=== PATIENT | female | born 1975 | race Caucasian/White ===

== ENCOUNTER 2020-07-27 11:01 | Outpatient (REF) | payer OTHER, SELFPAY ==
--- NOTE | ~2020-07-27 | MM_ITS ---
EXAMINATION: MM DIAGNOSTIC DIGITAL BREAST TOMOSYNTHESIS, BILATERAL US DIAGNOSTIC ULTRASOUND BREAST, RIGHT CLINICAL INFORMATION: Palpable mass right breast anterior upper outer quadrant. Age 44. Due for yearly. Family history breast cancer, paternal aunt. The lifetime risk of breast cancer based on the Tyrer-Cuzick Model is 11%. COMPARISON: Outside imaging from [facility]: Right mammography 02/11/2016, bilateral mammography 02/03/2016, targeted right breast ultrasound 02/11/2016. TECHNIQUE: Digital breast tomosynthesis is performed in both the craniocaudal and mediolateral oblique views along with computer-aided detection (CAD). Synthesized 2D images are generated from the tomosynthesis. Additional views are obtained: Magnification right MLO, exaggerated left CC. Ultrasound right breast is targeted to the area of clinical concern upper outer quadrant. Patient is able to point to area of concern at time of imaging. Grayscale imaging and color Doppler are performed without and with harmonics. FINDINGS: The breasts are heterogeneously dense, which may obscure small masses (ACR BI-RADS breast composition Category c). The palpable mass right breast corresponds to a smooth mass at least 2 cm in size with obscured margins anterior upper outer breast. This is present on previous outside mammography, with interval enlargement. Neither breast shows interval new dominant mass or architectural abnormality or abnormal calcifications. The axilla and skin contours are unremarkable. Ultrasound right breast demonstrates a simple cyst 10:00 position 4 cm from nipple measuring 2.6 x 1.6 x 2.2 cm. There is some reverberation artifact near side which clears on harmonics. A few floating punctate echogenic foci are seen consistent with protein content and/or cholesterol crystals. There is strong increased through-transmission of sound and no internal septation or solid component or color flow. Prior measurements are 1.4 x 0.7 cm on outside ultrasound 2016. There is no solid mass or architectural abnormality. Results are discussed with the patient at time of visit. MM/MM tomosynthesis diagnostic BI IMPRESSION: 1. No mammographic evidence of malignancy. 2. Palpable lesion right breast corresponds to an incidental cyst measuring 2.6 x 1.6 x 2.2 cm. Similar finding noted on prior outside ultrasound 2016, prior measurement 1.4 x 0.7 cm. ASSESSMENT: BI-RADS 2: Benign RECOMMENDATION: Routine annual mammography screening. This patient's information was entered into a reminder system with a target due date for their next mammogram.
== END 2020-07-27 11:02 | disposition home or self-care (01) ==
LOC: HO.MAMMO 11:01
PROVIDERS: PCP Internal Medicine; Visit Provider Internal Medicine
DX: N63.11 Unspecified lump in the right breast, upper outer quadrant (principal)
CPT/HCPCS: 76642; 77062; 77066

== ENCOUNTER 2021-11-04 08:02 | Outpatient (REF) | payer OTHER, SELFPAY ==
[2021-11-04 09:33] LABS: MANUAL DIFF FLAG NO
[2021-11-04 09:53] LABS: Basophils Absolute Auto 0.1 X10*3/uL (0.0-0.2); Basophils Percent Auto 0.7 % (0-2); Eosinophils Absolute Auto 0.1 X10*3/uL (0.0-0.4); Eosinophils Percent Auto 1.8 % (0-4); Hematocrit 41.5 % (37.0-47.0); Hemoglobin 13.8 g/dl (12.0-16.0); Imm Gran Abs Auto 0.02 X10*3/uL (0.00-0.03); Imm Gran Pct Auto 0.3 % (0.0-0.4); Lymphocytes Absolute Auto 1.8 X10*3/uL (1.2-4.9); Lymphocytes Percent Auto 23.8 % (20-40); Mean Corpuscular HGB Conc 33.3 g/dl (31.0-35.0); Mean Corpuscular Hemoglobin 33.3 pg (27.0-33.0); Mean Platelet Volume 9.3 fL (9.4-12.3); Monocytes Absolute Auto 0.4 X10*3/uL (0.1-1.2); Neutrophils Percent Auto 67.4 % (45-73); Platelet Count 232 X10*3/uL (160-400); Red Blood Count 4.15 X10*6/uL (4.20-5.50); Red Cell Distribution Width 13.9 % (11.0-16.0); White Blood Count 7.4 X10*3/uL (4.8-10.8)
[2021-11-04 10:24] LABS: C Reactive Protein 0.11 mg/dL (< or = 0.50); Rheumatoid Factor < 15.0 IU/mL (<15.0)
[2021-11-06 05:02] LABS: Lyme Abs Screen <0.90 index
[2021-11-08 12:56] LABS: ANA Titer 2 1:40 titer; Anti Nuclear Antibody Pattern Nuclear, Nucleolar; Anti Nuclear Antibody Screen POSITIVE (NEGATIVE)
[2021-11-09 18:12] LABS: Cyclic Citrullinated Peptide <16 UNITS
== END 2021-11-04 08:03 | disposition home or self-care (01) ==
LOC: HO.LAB 08:02
PROVIDERS: PCP Internal Medicine; Visit Provider Internal Medicine Rheumatology
DX: M25.541 Pain in joints of right hand (principal); M25.542 Pain in joints of left hand; M79.602 Pain in left arm; G56.22 Lesion of ulnar nerve, left upper limb; M47.812 Spondylosis without myelopathy or radiculopathy, cervical region; M79.7 Fibromyalgia
CPT/HCPCS: 36415; 85025; 86038; 86039; 86140; 86200; 86431; 86617; 86618; 99202

== ENCOUNTER 2021-11-11 10:57 | Outpatient (REF) | payer OTHER, SELFPAY ==
--- NOTE | ~2021-11-11 | XR_ITS ---
EXAMINATION: BILATERAL HAND, BILATERAL KNEE, BILATERAL HIP. CLINICAL INFORMATION: Pain. COMPARISON: None TECHNIQUE: 2 views of each hip. 2 views of each knee and 3 views of each hand. FINDINGS: Bilateral knee: There is maintained tricompartment joint space without bony erosive changes, loose body or spurring. No joint effusion seen. Bilateral hips: The hip joint space is maintained normal. There is no bony erosive changes, fracture or dislocation. The soft tissues are normal. Incidental note is made of an IUD in the pelvis. Bilateral hand: The PIP, DIP and MCP joint spaces are maintained normal. No bony erosive changes or periarticular spurring. No soft tissue swelling or loose bodies. XR/XR hand RT 2V IMPRESSION: Unremarkable bilateral knee exam. Unremarkable bilateral hip exam. Unremarkable bilateral hand exam.
--- NOTE | ~2021-11-11 | XR_ITS ---
EXAMINATION: BILATERAL HAND, BILATERAL KNEE, BILATERAL HIP. CLINICAL INFORMATION: Pain. COMPARISON: None TECHNIQUE: 2 views of each hip. 2 views of each knee and 3 views of each hand. FINDINGS: Bilateral knee: There is maintained tricompartment joint space without bony erosive changes, loose body or spurring. No joint effusion seen. Bilateral hips: The hip joint space is maintained normal. There is no bony erosive changes, fracture or dislocation. The soft tissues are normal. Incidental note is made of an IUD in the pelvis. Bilateral hand: The PIP, DIP and MCP joint spaces are maintained normal. No bony erosive changes or periarticular spurring. No soft tissue swelling or loose bodies. XR/XR knee LT 2V IMPRESSION: Unremarkable bilateral knee exam. Unremarkable bilateral hip exam. Unremarkable bilateral hand exam.
--- NOTE | ~2021-11-11 | XR_ITS ---
EXAMINATION: BILATERAL HAND, BILATERAL KNEE, BILATERAL HIP. CLINICAL INFORMATION: Pain. COMPARISON: None TECHNIQUE: 2 views of each hip. 2 views of each knee and 3 views of each hand. FINDINGS: Bilateral knee: There is maintained tricompartment joint space without bony erosive changes, loose body or spurring. No joint effusion seen. Bilateral hips: The hip joint space is maintained normal. There is no bony erosive changes, fracture or dislocation. The soft tissues are normal. Incidental note is made of an IUD in the pelvis. Bilateral hand: The PIP, DIP and MCP joint spaces are maintained normal. No bony erosive changes or periarticular spurring. No soft tissue swelling or loose bodies. XR/XR knee RT 2V IMPRESSION: Unremarkable bilateral knee exam. Unremarkable bilateral hip exam. Unremarkable bilateral hand exam.
--- NOTE | ~2021-11-11 | XR_ITS ---
EXAMINATION: BILATERAL HAND, BILATERAL KNEE, BILATERAL HIP. CLINICAL INFORMATION: Pain. COMPARISON: None TECHNIQUE: 2 views of each hip. 2 views of each knee and 3 views of each hand. FINDINGS: Bilateral knee: There is maintained tricompartment joint space without bony erosive changes, loose body or spurring. No joint effusion seen. Bilateral hips: The hip joint space is maintained normal. There is no bony erosive changes, fracture or dislocation. The soft tissues are normal. Incidental note is made of an IUD in the pelvis. Bilateral hand: The PIP, DIP and MCP joint spaces are maintained normal. No bony erosive changes or periarticular spurring. No soft tissue swelling or loose bodies. XR/XR hip RT min 2V IMPRESSION: Unremarkable bilateral knee exam. Unremarkable bilateral hip exam. Unremarkable bilateral hand exam.
--- NOTE | ~2021-11-11 | XR_ITS ---
EXAMINATION: BILATERAL HAND, BILATERAL KNEE, BILATERAL HIP. CLINICAL INFORMATION: Pain. COMPARISON: None TECHNIQUE: 2 views of each hip. 2 views of each knee and 3 views of each hand. FINDINGS: Bilateral knee: There is maintained tricompartment joint space without bony erosive changes, loose body or spurring. No joint effusion seen. Bilateral hips: The hip joint space is maintained normal. There is no bony erosive changes, fracture or dislocation. The soft tissues are normal. Incidental note is made of an IUD in the pelvis. Bilateral hand: The PIP, DIP and MCP joint spaces are maintained normal. No bony erosive changes or periarticular spurring. No soft tissue swelling or loose bodies. XR/XR hand LT 2V IMPRESSION: Unremarkable bilateral knee exam. Unremarkable bilateral hip exam. Unremarkable bilateral hand exam.
--- NOTE | ~2021-11-11 | XR_ITS ---
EXAMINATION: BILATERAL HAND, BILATERAL KNEE, BILATERAL HIP. CLINICAL INFORMATION: Pain. COMPARISON: None TECHNIQUE: 2 views of each hip. 2 views of each knee and 3 views of each hand. FINDINGS: Bilateral knee: There is maintained tricompartment joint space without bony erosive changes, loose body or spurring. No joint effusion seen. Bilateral hips: The hip joint space is maintained normal. There is no bony erosive changes, fracture or dislocation. The soft tissues are normal. Incidental note is made of an IUD in the pelvis. Bilateral hand: The PIP, DIP and MCP joint spaces are maintained normal. No bony erosive changes or periarticular spurring. No soft tissue swelling or loose bodies. XR/XR hip LT min 2V IMPRESSION: Unremarkable bilateral knee exam. Unremarkable bilateral hip exam. Unremarkable bilateral hand exam.
[2021-11-12 18:05] LABS: Anti DNA DS Antibody 1 IU/mL; SM/Ribonucleoprotein Ab <1.0 NEG AI (<1.0 NEG); Smith Protein <1.0 NEG AI (<1.0 NEG)
== END 2021-11-11 10:58 | disposition home or self-care (01) ==
LOC: HO.LAB 10:57
PROVIDERS: Absent Provider Internal Medicine Rheumatology; PCP Internal Medicine; Visit Provider Internal Medicine
DX: R76.8 Other specified abnormal immunological findings in serum (principal); M25.551 Pain in right hip; M25.552 Pain in left hip; M25.561 Pain in right knee; M25.562 Pain in left knee; M79.641 Pain in right hand; M79.642 Pain in left hand
CPT/HCPCS: 36415; 73120; 73502; 73560; 86225; 86235

== ENCOUNTER 2022-04-25 11:02 | Outpatient (REF) | payer OTHER, SELFPAY ==
--- NOTE | ~2022-04-25 | MM_ITS ---
EXAMINATION: MM SCREENING DIGITAL BREAST TOMOSYNTHESIS, BILATERAL CLINICAL INFORMATION: Screening. Asymptomatic. COMPARISON: Mammography: 07/27/2020; outside mammography 02/11/2016 and 02/03/2016 ([facility]); ultrasound right breast 07/27/2020. TECHNIQUE: Digital breast tomosynthesis is performed in both the craniocaudal and mediolateral oblique views along with computer-aided detection (CAD). Synthesized 2D images are generated from the tomosynthesis. FINDINGS: The breasts are heterogeneously dense, which may obscure small masses (ACR BI-RADS breast composition Category c). There are no significant masses, abnormal calcifications, or other abnormalities. The known cyst anterior 9:00 right breast is decreased in size since prior exam. No architectural abnormality. The axilla and skin contours are unremarkable. MM/MM tomosynthesis screening BI IMPRESSION: No mammographic evidence of malignancy. ASSESSMENT: BI-RADS 2: Benign RECOMMENDATION: Routine annual mammography screening. This patient's information was entered into a reminder system with a target due date for their next mammogram.
== END 2022-04-25 11:03 | disposition home or self-care (01) ==
LOC: HO.MAMMO 11:02
PROVIDERS: Visit Provider Internal Medicine
DX: Z12.31 Encounter for screening mammogram for malignant neoplasm of breast (principal)
CPT/HCPCS: 77063; 77067

== ENCOUNTER 2022-05-16 12:32 | Outpatient (REF) | payer OTHER, SELFPAY ==
--- NOTE | ~2022-05-16 | XR_ITS ---
EXAMINATION: XR CHEST CLINICAL INFORMATION: Chest pain COMPARISON: None TECHNIQUE: 2 views of the chest were obtained. FINDINGS: Cardiac silhouette is normal in size. The lungs are well aerated. There is no lobar consolidation. No pleural effusion or pneumothorax. Mild degenerative changes of the spine. XR/XR chest 2V IMPRESSION: No acute pulmonary pathology.
== END 2022-05-16 12:33 | disposition home or self-care (01) ==
LOC: HO.XRAY 12:32
PROVIDERS: Visit Provider Internal Medicine
DX: R07.9 Chest pain, unspecified (principal)
CPT/HCPCS: 71046

== ENCOUNTER 2022-07-20 14:17 | Outpatient (REF) | payer OTHER, SELFPAY ==
--- NOTE | ~2022-07-20 | XR_ITS ---
EXAMINATION: XR hand wrist RT, XR hand wrist LT CLINICAL INFORMATION: Reason for Exam M79.643 - Pain in unspecified hand COMPARISON: Hand radiographs 11/11/2021 TECHNIQUE: 4 views of the hand and wrist FINDINGS: No acute fracture or dislocation. Joint spaces are maintained without significant degenerative change. No soft tissue abnormality. XR/XR hand wrist LT IMPRESSION: No acute osseous abnormality.
--- NOTE | ~2022-07-20 | XR_ITS ---
EXAMINATION: XR ELBOW, RIGHT CLINICAL INFORMATION: Pain COMPARISON: None TECHNIQUE: Three views of the right elbow. FINDINGS: No acute fracture or dislocation. Joint spaces are maintained. Soft tissues are unremarkable. No joint effusion. XR/XR elbow RT 2V IMPRESSION: No acute osseous abnormality.
--- NOTE | ~2022-07-20 | XR_ITS ---
EXAMINATION: XR ELBOW, LEFT CLINICAL INFORMATION: Pain COMPARISON: None TECHNIQUE: Three views of the left elbow. FINDINGS: No acute fracture or dislocation. Joint spaces are maintained. Soft tissues are unremarkable. No joint effusion. XR/XR elbow LT 2V IMPRESSION: No acute osseous abnormality.
--- NOTE | ~2022-07-20 | XR_ITS ---
EXAMINATION: XR hand wrist RT, XR hand wrist LT CLINICAL INFORMATION: Reason for Exam M79.643 - Pain in unspecified hand COMPARISON: Hand radiographs 11/11/2021 TECHNIQUE: 4 views of the hand and wrist FINDINGS: No acute fracture or dislocation. Joint spaces are maintained without significant degenerative change. No soft tissue abnormality. XR/XR hand wrist RT IMPRESSION: No acute osseous abnormality.
== END 2022-07-20 14:18 | disposition home or self-care (01) ==
LOC: HO.XRAY 14:17
PROVIDERS: PCP Internal Medicine; Visit Provider Internal Medicine
DX: M79.641 Pain in right hand (principal); M79.642 Pain in left hand; M25.531 Pain in right wrist; M25.532 Pain in left wrist; M25.521 Pain in right elbow; M25.522 Pain in left elbow
CPT/HCPCS: 73070; 73110; 73130

== ENCOUNTER 2022-09-29 08:25 | Outpatient (REF) | payer OTHER, SELFPAY ==
--- NOTE | ~2022-09-29 | MR_ITS ---
EXAMINATION: MR CERVICAL SPINE WITHOUT CONTRAST CLINICAL INFORMATION: Cervical disc disease/radiculopathy. COMPARISON: None available. TECHNIQUE: MRI of the cervical spine was performed using routine sequences without contrast. FINDINGS: The cervical vertebral bodies maintain normal heights and alignment. There is moderate disc height loss at C5-C6 and C6-C7. Endplate edema is seen at C6-C7, asymmetrically on the right side. The cord signal appears normal. The imaged intracranial contents and extraspinal soft tissues appear normal. SPINAL LEVELS: C2-C3: No posterior disc abnormality. No spinal canal or neural foraminal stenosis. C3-C4: Small central protrusion. No spinal canal or neural foraminal stenosis. C4-C5: Small central protrusion with osteophytic ridging resulting in mild spinal canal stenosis with mild indentation on the ventral cord. No neural foraminal stenosis. C5-C6: Broad-based disc osteophyte complex resulting in mild to moderate spinal canal stenosis with ventral cord flattening. Right more than left uncovertebral hypertrophy results in severe right and mild left neural foraminal stenosis. C6-C7: Disc osteophyte complex with uncovertebral hypertrophy results in moderate spinal canal stenosis and severe bilateral neural foraminal stenosis. C7-T1: No posterior disc abnormality. No spinal canal or neural foraminal stenosis. MR/MR cervical spine wo con IMPRESSION: Multilevel degenerative spondylotic changes. At C6-C7 there is moderate spinal canal stenosis and severe bilateral neural foraminal stenosis. At C5-C6 there is mild to moderate spinal canal stenosis and severe right neural foraminal stenosis.
== END 2022-09-29 08:26 | disposition home or self-care (01) ==
LOC: HO.MRI 08:25
PROVIDERS: PCP Internal Medicine; Visit Provider Psychiatry & Neurology Neurology
DX: M50.90 Cervical disc disorder, unspecified, unspecified cervical region (principal); M54.12 Radiculopathy, cervical region
CPT/HCPCS: 72141

== ENCOUNTER 2022-09-29 09:05 | Outpatient (REF) | payer OTHER, SELFPAY ==
[2022-09-29 09:22] LABS: MANUAL DIFF FLAG NO
[2022-09-29 09:26] LABS: Basophils Absolute Auto 0.1 X10*3/uL (0.0-0.2); Basophils Percent Auto 0.6 % (0-2); Eosinophils Absolute Auto 0.3 X10*3/uL (0.0-0.4); Eosinophils Percent Auto 2.8 % (0-4); Hematocrit 41.4 % (37.0-47.0); Hemoglobin 14.3 g/dl (12.0-16.0); Imm Gran Abs Auto 0.03 X10*3/uL (0.00-0.03); Imm Gran Pct Auto 0.3 % (0.0-0.4); Lymphocytes Absolute Auto 2.4 X10*3/uL (1.2-4.9); Lymphocytes Percent Auto 25.4 % (20-40); Mean Corpuscular HGB Conc 34.5 g/dl (31.0-35.0); Mean Corpuscular Hemoglobin 33.8 pg (27.0-33.0); Mean Corpuscular Volume 97.9 fL (80.0-98.0); Mean Platelet Volume 9.2 fL (9.4-12.3); Monocytes Absolute Auto 0.6 X10*3/uL (0.1-1.2); Monocytes Percent Auto 6.4 % (2-11); Neutrophils Absolute Auto 6.1 x10*3/uL (2.0-8.3); Neutrophils Percent Auto 64.5 % (45-73); Platelet Count 221 X10*3/uL (160-400); Red Blood Count 4.23 X10*6/uL (4.20-5.50); Red Cell Distribution Width 12.8 % (11.0-16.0); White Blood Count 9.5 X10*3/uL (4.8-10.8)
[2022-09-29 10:07] LABS: Alanine Aminotransferase 10 U/L (0-31); Albumin Level 4.3 g/dL (3.5-5.0); Alkaline Phosphatase 71 U/L (39-117); Anion Gap 11 (12-20); Aspartate Amino Transferase 13 U/L (5-31); Bilirubin Total 0.6 mg/dL (0.0-1.0); Blood Urea Nitrogen 9 mg/dL (9-16); Calcium 9.1 mg/dL (8.4-10.2); Carbon Dioxide 27 mmol/L (22-29); Chloride 107 mmol/L (96-108); Cholesterol 218 mg/dL; Estimated Glomerular Filt Rate > 60; Glucose Fasting 92 mg/dL (60-99); HDL Cholesterol 40 mg/dL; LDL Cholesterol Calculated 158 mg/dl; Potassium 4.3 mmol/L (3.3-5.1); Sodium 141 mmol/L (135-145); Total Protein 6.5 g/dL (6.5-8.0); Triglycerides 103 mg/dL
[2022-09-29 10:11] LABS: Thyroid Stimulating Hormone 0.46 uIU/mL (0.32-4.0)
== END 2022-09-29 09:06 | disposition home or self-care (01) ==
LOC: HO.LAB 09:05
PROVIDERS: PCP Internal Medicine; Visit Provider Internal Medicine
DX: N28.9 Disorder of kidney and ureter, unspecified (principal); D64.9 Anemia, unspecified; E78.5 Hyperlipidemia, unspecified; E03.9 Hypothyroidism, unspecified
CPT/HCPCS: 36415; 80053; 80061; 84443; 85025

== ENCOUNTER 2022-10-11 12:27 | Outpatient (REF) | payer OTHER, SELFPAY | END 2022-10-11 12:28 | disposition home or self-care (01) | LOC: HO.XRAY 12:27 | PROVIDERS: PCP Internal Medicine; Visit Provider Internal Medicine | DX: Z13.89 Encounter for screening for other disorder (principal) ==

== ENCOUNTER 2022-12-22 11:23 | Outpatient (REF) | payer OTHER, SELFPAY | END 2022-12-22 11:24 | disposition home or self-care (01) | LOC: HO.LAB 11:23 | PROVIDERS: PCP Internal Medicine; Visit Provider Internal Medicine | DX: R39.9 Unspecified symptoms and signs involving the genitourinary system (principal) | CPT/HCPCS: 81001; 87086; 87088; 87186 ==

== ENCOUNTER 2023-03-30 14:14 | Outpatient (AMB) | payer OTHER, SELFPAY ==
[2023-03-30 14:15] VITALS: BP 122/66; PULSE 80; O2SAT 98; BMI 25.1
--- NOTE | 2023-03-30 14:15 | MHC.PC.OV ---
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 Accompanied by: Self / Same As Patient Allergies No Known Allergies Allergy (Verified 03/30/23 14:54) Medication List - Last Reconciled 03/30/23 by Stone Muse MD albuterol sulfate 90 mcg/actuation (ProAir HFA) 2 puffs inhalation Q4-6H PRN citalopram (Celexa) 20 mg PO DAILY lorazepam 1 mg PO DAILY PRN lorazepam 1 mg (2 x 0.5 mg) PO BID PRN sulfamethoxazole-trimethoprim 800-160 mg (Bactrim DS) 1 tab PO BID Tobacco use date assessed: 10/17/22 Dental Screening Dental Screen Date: 03/30/23 Did you have a dental visit in the last 12 months?: Yes Did you have a dental problem in the last 6 months where you did not have access to dental care?: No Was dental information given to patient?: Patient has dentist HPI fell left ankle and knee pain/ surgery 6 weeks ago HPI Details 47-year-old female presents to the office for a sick visit. She tripped and fell on her outstretched hands last night. In the process she has hurt her left foot. She is also worried about her left arm. She recently had surgery in the arm and has had surgery in the neck in the recent past. No visible bruising. She could get up on her own. [facility] Medical History KRISTEN positive Fibromyalgia Cervical osteoarthritis Ulnar neuropathy at elbow of left upper extremity Pain in left arm Surgical History History of section Social History Housing: Apartment Alcohol intake: never Patient Tobacco Use Status: Current everyday Tobacco user Tobacco use type: Cigarette Cigarette Packs Per Day: 0.5 Cigarettes Per Day: 8 e-Cigarette/Vaping Use: Never Used Second Hand Smoke Exposure: Yes service: No Current occupational status: unemployed Cognitive needs: No Hearing needs: No Vision needs: Yes (glasses) Questionnaire PHQ-9 Over the last 2 weeks, how often have you been bothered by any of the following problems? 1. Little interest or pleasure in doing things: not at all 2. Feeling down, depressed, or hopeless: not at all 3. Trouble falling or staying asleep, or sleeping too much: not at all 4. Feeling tired or having little energy: not at all 5. Poor appetite or overeating: not at all 6. Feeling bad about yourself - or that you are a failure or have let yourself or your family down: not at all 7. Trouble concentrating on things, such as reading the newspaper or watching television: not at all 8. Moving or speaking so slowly that other people could have noticed. Or the opposite - being so fidgety or restless that you have been moving around a lot more than usual: not at all 9. Thoughts that you would be better off or of hurting yourself in some way: not at all Total score: 0 Depression Screening Interpretation: Negative Depression Screening Done: Yes Source: Developed by Drs. Víctor Stewart, Yanira Diaz, Ilir Ibarra and colleagues, with an educational maia from [employer]. Thrive Questionnaire Date Thrive assessed: 09/14/22 AUDIT C Alcohol Use Questionnaire (AUDIT-C) 1. How often do you have a drink containing alcohol?: Monthly or less Total Score: 1 Score Reviewed/Action Taken: Yes ROSAURA-7 AMB Questionnaire ROSAURA-7 Date ROSAURA - 7 assessed: 09/14/22 Source: Developed by Drs. Víctor Stewart, Yanira Diaz, Ilir Ibarra and colleagues, with an educational maia from [employer]. Physical exam (Primary Care) Vital Signs: Last Vital Signs Pulse 80 03/30/23 14:15 BP 122/66 03/30/23 14:15 Pulse Ox 98 03/30/23 14:15 Oxygen Delivery Method Room Air 03/30/23 14:15 BMI result Body Mass Index 25.1 Tobacco/Smoking Status: Tobacco use Status Tobacco use date assessed 10/17/22 03/30/23 14:20 Patient Tobacco Use Status Current everyday Tobacco 03/30/23 14:20 Tobacco use type Cigarette 03/30/23 14:20 e-Cigarette/Vaping Use Never Used 03/30/23 14:20 PHQ-9: PHQ-9 Score PHQ-9: Total score 0 03/30/23 14:20 Depression Screening Interpretation: Negative Thrive Assessment: Date of Thrive Assessment Date Thrive assessed 09/14/22 03/30/23 14:20 Const General: cooperative and healthy appearing Nutritional Appearance: well nourished Orientation/consciousness: patient oriented x3 Limitations: no limitations HENMT Head: Yes normal to inspection Eyes General: appearance normal, both eyes and all related structures Neck Neck: Yes normal visual inspection Chest Chest palpation & inspection: normal palpation of entire chest wall Resp Effort & Inspection: normal respiratory effort Neuro General: patient oriented x3 Extrem Other: Left ankle: No tenderness. No bruising. Minimal swelling over the lateral malleolus. Pain on flexion, extension, inversion and eversion. Assessment and Plan Assessment & Plan (1) Left ankle sprain: Code(s): S93.402A - Sprain of unspecified ligament of left ankle, initial encounter Plan: X-ray has been ordered. Aircast supplied. Will call with results of the x-ray. Meloxicam prescribed. Coding Level of Care Code Est Pt Level 3 (41609) Diagnoses Left ankle sprain S93.402A
== END 2023-03-30 15:05 | disposition home or self-care (01) ==
PROVIDERS: PCP Internal Medicine; Visit Provider Internal Medicine
DX: S93.402A Sprain of unspecified ligament of left ankle, initial encounter (principal)
CPT/HCPCS: 99213

== ENCOUNTER 2023-03-30 15:09 | Outpatient (REF) | payer OTHER, SELFPAY ==
--- NOTE | ~2023-03-30 | XR_ITS ---
EXAMINATION: XR ANKLE, LEFT. BILATERAL WRISTS CLINICAL INFORMATION: Lateral left ankle pain, fell yesterday COMPARISON: None TECHNIQUE: 3 views of the left ankle. 4 views of the right wrist. 4 views of the left wrist. FINDINGS: Left ankle: Joint effusion present. Joint spaces are maintained. Alignment is preserved. No displaced fracture. Right wrist: Mild degenerative changes first carpometacarpal joint with joint space narrowing and hypertrophic change. Mild degenerative changes with hypertrophic change in the first metacarpal phalangeal joint. No displaced fracture. Small cystic lucency in the trapezoid. Left wrist: Mild degenerative changes first carpometacarpal joint with joint space narrowing and hypertrophic change. Mild degenerative changes with hypertrophic change in the first metacarpal phalangeal joint. No displaced fracture. XR/XR wrist RT 2V IMPRESSION: 1. No displaced fracture of the left ankle. Joint effusion. 2. Mild degenerative changes in the bilateral wrists. No displaced fracture. Recommend follow-up imaging in 10-14 days if fracture is suspected. Additional imaging with CT scan or MRI should be considered for better visualization as these modalities are much more sensitive for detection of fracture or other underlying pathology.
--- NOTE | ~2023-03-30 | XR_ITS ---
EXAMINATION: XR ANKLE, LEFT. BILATERAL WRISTS CLINICAL INFORMATION: Lateral left ankle pain, fell yesterday COMPARISON: None TECHNIQUE: 3 views of the left ankle. 4 views of the right wrist. 4 views of the left wrist. FINDINGS: Left ankle: Joint effusion present. Joint spaces are maintained. Alignment is preserved. No displaced fracture. Right wrist: Mild degenerative changes first carpometacarpal joint with joint space narrowing and hypertrophic change. Mild degenerative changes with hypertrophic change in the first metacarpal phalangeal joint. No displaced fracture. Small cystic lucency in the trapezoid. Left wrist: Mild degenerative changes first carpometacarpal joint with joint space narrowing and hypertrophic change. Mild degenerative changes with hypertrophic change in the first metacarpal phalangeal joint. No displaced fracture. XR/XR wrist LT 2V IMPRESSION: 1. No displaced fracture of the left ankle. Joint effusion. 2. Mild degenerative changes in the bilateral wrists. No displaced fracture. Recommend follow-up imaging in 10-14 days if fracture is suspected. Additional imaging with CT scan or MRI should be considered for better visualization as these modalities are much more sensitive for detection of fracture or other underlying pathology.
--- NOTE | ~2023-03-30 | XR_ITS ---
EXAMINATION: XR KNEE, RIGHT CLINICAL INFORMATION: Pain knee right COMPARISON: 11/11/2021 TECHNIQUE: AP and lateral of the right knee. FINDINGS: Minimal medial joint space narrowing. No significant joint effusion. Tiny quadriceps enthesophyte. XR/XR knee RT 2V IMPRESSION: Minimal degenerative changes.
--- NOTE | ~2023-03-30 | XR_ITS ---
EXAMINATION: XR ANKLE, LEFT. BILATERAL WRISTS CLINICAL INFORMATION: Lateral left ankle pain, fell yesterday COMPARISON: None TECHNIQUE: 3 views of the left ankle. 4 views of the right wrist. 4 views of the left wrist. FINDINGS: Left ankle: Joint effusion present. Joint spaces are maintained. Alignment is preserved. No displaced fracture. Right wrist: Mild degenerative changes first carpometacarpal joint with joint space narrowing and hypertrophic change. Mild degenerative changes with hypertrophic change in the first metacarpal phalangeal joint. No displaced fracture. Small cystic lucency in the trapezoid. Left wrist: Mild degenerative changes first carpometacarpal joint with joint space narrowing and hypertrophic change. Mild degenerative changes with hypertrophic change in the first metacarpal phalangeal joint. No displaced fracture. XR/XR ankle LT min 3V IMPRESSION: 1. No displaced fracture of the left ankle. Joint effusion. 2. Mild degenerative changes in the bilateral wrists. No displaced fracture. Recommend follow-up imaging in 10-14 days if fracture is suspected. Additional imaging with CT scan or MRI should be considered for better visualization as these modalities are much more sensitive for detection of fracture or other underlying pathology.
[2023-03-30 16:51] LABS: Appearance Urine Clear; Color Urine Yellow; Glucose Urine UA Negative (Negative); Leukocyte Esterase Urine Negative (Negative); Nitrite Urine Negative (Negative); Specific Gravity - Urine 1.015 (1.005-1.025); Urine Blood Negative (Negative); Urine Ketones Negative (Negative); Urine Protein Negative (Neg-Trace)
== END 2023-03-30 15:10 | disposition home or self-care (01) ==
LOC: HO.XRAY 15:09
PROVIDERS: PCP Internal Medicine; Visit Provider Internal Medicine
DX: R39.9 Unspecified symptoms and signs involving the genitourinary system (principal); S93.402A Sprain of unspecified ligament of left ankle, initial encounter; M25.531 Pain in right wrist; M25.532 Pain in left wrist; M25.561 Pain in right knee
CPT/HCPCS: 73100; 73560; 73610; 81003

== ENCOUNTER 2023-04-13 11:35 | Outpatient (AMB) | payer OTHER, SELFPAY ==
--- NOTE | 2023-04-13 11:36 | A.OFFPC_ITS ---
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 Accompanied by: Daughter Allergies No Known Allergies Allergy (Verified 04/13/23 11:37) Medication List - Last Reconciled 04/13/23 by Jaison Gamboa MD albuterol sulfate 90 mcg/actuation (ProAir HFA) 2 puffs inhalation Q4-6H PRN ciprofloxacin HCl (Cipro) 250 mg PO BID citalopram (Celexa) 20 mg PO DAILY lorazepam 1 mg PO DAILY PRN lorazepam 1 mg (2 x 0.5 mg) PO BID PRN meloxicam 15 mg PO DAILY phenazopyridine (Pyridium) 200 mg PO TID sulfamethoxazole-trimethoprim 800-160 mg (Bactrim DS) 1 tab PO BID Tobacco use date assessed: 10/17/22 HPI pain with urination HPI Details 1 day dysuria and bladder pain PFSH Medical History KRISTEN positive Fibromyalgia Cervical osteoarthritis Ulnar neuropathy at elbow of left upper extremity Pain in left arm Surgical History History of section Social History Housing: Apartment Alcohol intake: never Patient Tobacco Use Status: Current everyday Tobacco user Tobacco use type: Cigarette Cigarette Packs Per Day: 0.5 Cigarettes Per Day: 8 e-Cigarette/Vaping Use: Never Used Second Hand Smoke Exposure: Yes service: No Current occupational status: unemployed Cognitive needs: No Hearing needs: No Vision needs: Yes (glasses) Questionnaire PHQ-9 Over the last 2 weeks, how often have you been bothered by any of the following problems? 1. Little interest or pleasure in doing things: not at all 2. Feeling down, depressed, or hopeless: not at all 3. Trouble falling or staying asleep, or sleeping too much: not at all 4. Feeling tired or having little energy: not at all 5. Poor appetite or overeating: not at all 6. Feeling bad about yourself - or that you are a failure or have let yourself or your family down: not at all 7. Trouble concentrating on things, such as reading the newspaper or watching television: not at all 8. Moving or speaking so slowly that other people could have noticed. Or the opposite - being so fidgety or restless that you have been moving around a lot more than usual: not at all 9. Thoughts that you would be better off or of hurting yourself in some way: not at all Total score: 0 Depression Screening Interpretation: Negative Depression Screening Done: Yes Source: Developed by Drs. Víctor Stewart, Yanira Diaz, Ilir Ibarra and colleagues, with an educational maia from [employer] Thrive Questionnaire Date Thrive assessed: 09/14/22 AUDIT C Alcohol Use Questionnaire (AUDIT-C) 1. How often do you have a drink containing alcohol?: Monthly or less Total Score: 1 Score Reviewed/Action Taken: Yes ROSAURA-7 AMB Questionnaire ROSAURA-7 Date ROSAURA - 7 assessed: 09/14/22 Source: Developed by Drs. Víctor Stewart, Yanira Diaz, Ilir Ibarra and colleagues, with an educational maia from [employer] Review of Systems Const Denies chills, Denies headache(s) and Denies weight loss ENT Denies headache(s) Card Denies chest pain, Denies syncope, Denies irregular heart rhythm and Denies dyspnea Resp Denies chest congestion, Denies cough and Denies dyspnea GI Denies abdominal pain, Denies change in stool character, Denies nausea and Denies vomiting Musc Denies deformity and Denies joint swelling Neuro Denies syncope and Denies headache(s) Physical exam (Primary Care) Vital Signs: Last Vital Signs Pulse 83 04/13/23 11:37 BP 132/82 04/13/23 11:37 Pulse Ox 98 04/13/23 11:37 Oxygen Delivery Method Room Air 04/13/23 11:37 BMI result Body Mass Index 25.7 Tobacco/Smoking Status: Tobacco use Status Tobacco use date assessed 10/17/22 04/13/23 11:40 Patient Tobacco Use Status Current everyday Tobacco 04/13/23 11:40 Tobacco use type Cigarette 04/13/23 11:40 e-Cigarette/Vaping Use Never Used 04/13/23 11:40 PHQ-9: PHQ-9 Score PHQ-9: Total score 0 04/13/23 11:41 Depression Screening Interpretation: Negative Thrive Assessment: Date of Thrive Assessment Date Thrive assessed 09/14/22 04/13/23 11:40 Const General: cooperative, comfortable, no acute distress and alert Neck Neck: Yes no lymphadenopathy Thyroid: Thyroid normal Resp Effort & Inspection: normal respiratory effort Auscultation: clear to auscultation bilaterally Percussion: percussion normal Cardio Jugular venous distension: no JVD Palpation: normal PMI Rate: regular rate Rhythm: regular rhythm Heart sounds: S1 normal heart sound present and S2 normal heart sound present GI Inspection: Yes normal to inspection Palpation (GI): No hepatosplenomegaly present Skin General skin exam: no rashes or lesions noted Extrem General: Yes no clubbing, cyanosis or edema Assessment and Plan Assessment & Plan (1) UTI (urinary tract infection): Code(s): N39.0 - Urinary tract infection, site not specified Plan: rx sent Medications: New phenazopyridine (Pyridium) 200 mg PO TID 20 tabs 0RF ciprofloxacin HCl (Cipro) 250 mg PO BID 10 tabs 0RF Coding Level of Care Code Est Pt Level 3 (83689) Diagnoses UTI (urinary tract infection) N39.0
[2023-04-13 11:37] VITALS: BP 132/82; PULSE 83; O2SAT 98; BMI 25.7
== END 2023-04-13 11:46 | disposition home or self-care (01) ==
PROVIDERS: PCP Internal Medicine; Visit Provider Internal Medicine
DX: N39.0 Urinary tract infection, site not specified (principal)
CPT/HCPCS: 99213

== ENCOUNTER 2023-10-18 10:01 | Outpatient (AMB) | payer OTHER, SELFPAY ==
--- NOTE | 2023-10-18 10:05 | A.OFFPC_ITS ---
Vital Signs 10/18/23 10:06 Height 5 ft 4 in Weight 163 lb BMI 28.0 BP 122/86 Blood Pressure Location Lt brachial Position Sitting Pulse 80 Pulse Source Pulse Oximeter Pulse Oximetry (%) 98 Oxygen Delivery Method Room Air Intake Visit Reasons: Annual Exam Cushion Worker Required: No Dandy Tender: Not Required per policy Accompanied by: Self / Same As Patient Allergies No Known Allergies Allergy (Verified 10/18/23 10:06) Medication List - Last Reconciled 10/19/23 by Jaison Gamboa MD albuterol sulfate 90 mcg/actuation (ProAir HFA) 2 puffs inhalation Q4-6H PRN amitriptyline 25 mg PO BEDTIME ciprofloxacin HCl (Cipro) 250 mg PO BID citalopram (Celexa) 20 mg PO DAILY lorazepam 1 mg (2 x 0.5 mg) PO BID PRN lorazepam 1 mg PO DAILY PRN meloxicam 15 mg PO DAILY phenazopyridine (Pyridium) 200 mg PO TID pregabalin 75 mg PO BID sulfamethoxazole-trimethoprim 800-160 mg (Bactrim DS) 1 tab PO BID Tobacco use date assessed: 10/18/23 Dental Screening Dental Screen Date: 10/18/23 Did you have a dental visit in the last 12 months?: Yes Did you have a dental problem in the last 6 months where you did not have access to dental care?: No Was dental information given to patient?: Patient has dentist HPI Annual Exam HPI Details anxiety and chronic myalgia [facility] Medical History KRISTEN positive Fibromyalgia Cervical osteoarthritis Ulnar neuropathy at elbow of left upper extremity Pain in left arm Surgical History History of section Social History Housing: Apartment Alcohol intake: never Patient Tobacco Use Status: Current everyday Tobacco user Tobacco use type: Cigarette Cigarette Packs Per Day: 0.5 Cigarettes Per Day: 8 e-Cigarette/Vaping Use: Never Used Second Hand Smoke Exposure: Yes service: No Current occupational status: unemployed Cognitive needs: No Hearing needs: No Vision needs: Yes (glasses) Questionnaire PHQ-9 Over the last 2 weeks, how often have you been bothered by any of the following problems? 1. Little interest or pleasure in doing things: nearly every day 2. Feeling down, depressed, or hopeless: nearly every day 3. Trouble falling or staying asleep, or sleeping too much: nearly every day 4. Feeling tired or having little energy: nearly every day 5. Poor appetite or overeating: nearly every day 6. Feeling bad about yourself - or that you are a failure or have let yourself or your family down: several days 7. Trouble concentrating on things, such as reading the newspaper or watching television: nearly every day 8. Moving or speaking so slowly that other people could have noticed. Or the opposite - being so fidgety or restless that you have been moving around a lot more than usual: nearly every day 9. Thoughts that you would be better off or of hurting yourself in some way: not at all Total score: 22 Depression Screening Interpretation: Positive Depression Screening Done: Yes Source: Developed by Drs. Víctor Stewart, Yanira Diaz, Ilir Ibarra and colleagues, with an educational maia from [employer]. Thrive Questionnaire Date Thrive assessed: 10/18/23 I am a: Patient What is your living situation today?: I have a steady place to live Within the past 12 months, did the food you bought not last and you didn't have the money to get more?: Never true Within the past 12 months, did you worry whether your food would run out before you got money to buy more?: Never true Do you have trouble paying for medicines?: No Do you have trouble getting transportation to medical appointments?: No Do you have trouble paying your heating and electricity bill?: No Do you have trouble taking care of your child, family member or friend?: No Do you have trouble with day-to-day activities such as bathing, preparing meals, shopping, managing finances, etc.?: No Are you currently unemployed and looking for a job?: No Are you interested in more education?: No Please select the resources that you would like help with: None THRIVE Score: 0 AUDIT C Alcohol Use Questionnaire (AUDIT-C) 1. How often do you have a drink containing alcohol?: Monthly or less Total Score: 1 Score Reviewed/Action Taken: Yes ROSAURA-7 AMB Questionnaire ROSAURA-7 Date ROSAURA - 7 assessed: 10/18/23 Feeling nervous, anxious, or on edge: 3 = Nearly every day Not being able to stop or control worryin = Nearly every day Worrying too much about different things: 3 = Nearly every day Trouble relaxin = Nearly every day Being so restless that it is hard to sit still: 3 = Nearly every day Becoming easily annoyed or irritable: 1 = Several days Feeling afraid as if something awful might happen: 3 = Nearly every day Total ROSAURA-7 score (0-4 normal; 5-9 mild; 10-14 moderate; 15-21 severe): 19 Source: Developed by Drs. Víctor Stewart, Yanira Diaz, Ilir Ibarra and colleagues, with an educational maia from [employer]. Review of Systems Const Denies chills, Denies fatigue, Denies headache(s) and Denies weight loss Eyes Denies change in vision, Denies diplopia and Denies eye pain ENT Denies vertigo, Denies dizziness, Denies headache(s) and Denies nasal discharge Card Denies chest pain, Denies rapid heart rate and Denies dyspnea on exertion Resp Denies chest congestion, Denies cough, Denies pain with cough and Denies dyspnea on exertion GI Denies abdominal pain, Denies hematochezia and Denies change in bowel habits Musc Denies myalgias, Denies arthralgias and Denies joint swelling Skin/Breast Denies lesions and Denies unusual bruising Neuro Denies vertigo, Denies dizziness, Denies headache(s) and Denies focal weakness Endo Denies fatigue Physical exam (Primary Care) Vital Signs: Last Vital Signs Pulse 80 10/18/23 10:06 BP 122/86 10/18/23 10:06 Pulse Ox 98 10/18/23 10:06 Oxygen Delivery Method Room Air 10/18/23 10:06 BMI result Body Mass Index 28.0 Tobacco/Smoking Status: Tobacco use Status Tobacco use date assessed 10/18/23 10/18/23 10:13 Patient Tobacco Use Status Current everyday Tobacco 10/18/23 10:13 Tobacco use type Cigarette 10/18/23 10:13 e-Cigarette/Vaping Use Never Used 10/18/23 10:13 PHQ-9: PHQ-9 Score PHQ-9: Total score 22 10/18/23 10:13 Depression Screening Interpretation: Positive Thrive Assessment: Date of Thrive Assessment Date Thrive assessed 10/18/23 10/18/23 10:13 Const General: cooperative, healthy appearing and no acute distress Orientation/consciousness: oriented to person, oriented to place and oriented to time HENMT Head: Yes normal to inspection, Yes normocephalic and Yes atraumatic Mouth: Normal oral and palatal mucosa present and tongue normal Throat: Yes posterior oropharynx normal and Yes uvula midline Eyes General: appearance normal, both eyes and all related structures Neck Neck: Yes normal visual inspection, Yes full ROM and Yes no lymphadenopathy Thyroid: Thyroid normal Carotids: normal carotid upstroke Chest Chest palpation & inspection: normal inspection of the chest Resp Effort & Inspection: normal respiratory effort and able to speak in complete s entences Auscultation: clear to auscultation bilaterally Cardio Jugular venous distension: no JVD Palpation: normal PMI Rate: regular rate Rhythm: regular rhythm Heart sounds: S1 normal heart sound present and S2 normal heart sound present GI Inspection: Yes normal to inspection Palpation (GI): Soft to palpation and No hepatosplenomegaly present Auscultation: normal bowel sounds General: Yes no CVA tenderness Back/Spine/Pelvis Back: no CVA tenderness Skin General skin exam: no rashes or lesions noted Neuro General: oriented to person, oriented to place and oriented to time Extrem General: Yes normal to inspection and Yes full ROM Assessment and Plan Assessment & Plan (1) Physical exam: Code(s): Z00.00 - Encounter for general adult medical examination without abnormal findings Plan: do labs (2) Fibromyalgia: Code(s): M79.7 - Fibromyalgia Plan: stable; same rx Orders: Orders Lipid Panel Today Z13.220 - Encounter for screening for lipoid disorders Thyroid Stimulating Hormone Today Z13.29 - Encounter for screening for other suspected endocrine disorder Complete Blood Count Auto Diff Today Z13.0 - Encounter for screening for diseases of the blood and blood-forming organs and certain disorders involving the immune mechanism Comprehensive [place]. Panel Fast Today Z13.9 - Encounter for screening, unspecified Medications: Refilled lorazepam 1 mg PO DAILY PRN 30 tabs 1RF anxiety N63.0 - Unspecified lump in unspecified breast Coding Level of Care Code Est Pt Prev Care 40-64y(32478) Diagnoses Physical exam Z00.00 Fibromyalgia M79.7
[2023-10-18 10:06] VITALS: BP 122/86; PULSE 80; O2SAT 98; BMI 28.0
== END 2023-10-18 10:25 | disposition home or self-care (01) ==
PROVIDERS: PCP Internal Medicine; Visit Provider Internal Medicine
DX: Z00.00 Encounter for general adult medical examination without abnormal findings (principal); M79.7 Fibromyalgia; F17.210 Nicotine dependence, cigarettes, uncomplicated; J45.909 Unspecified asthma, uncomplicated
CPT/HCPCS: 99396

== ENCOUNTER 2023-11-30 13:04 | Outpatient (AMB) | payer OTHER, SELFPAY ==
[2023-11-30 13:06] VITALS: BP 130/82; PULSE 59; O2SAT 100; BMI 26.9
--- NOTE | 2023-11-30 13:06 | A.OFFPC_ITS ---
Vital Signs 11/30/23 13:06 Height 5 ft 4 in Weight 157 lb BMI 26.9 BP 130/82 Blood Pressure Location Lt brachial Position Sitting Pulse 59 Pulse Source Pulse Oximeter Pulse Oximetry (%) 100 Oxygen Delivery Method Room Air Intake Visit Reasons: High BP, requesting medication Allergies No Known Allergies Allergy (Verified 11/30/23 13:07) Tobacco use date assessed: 10/18/23 Dental Screening Dental Screen Date: 10/18/23 HPI High BP, requesting medication HPI Details BP was elevated to 150s after starting on elavil by neuro; rx stopped and bp fine now PFSH Medical History KRISTEN positive Fibromyalgia Cervical osteoarthritis Ulnar neuropathy at elbow of left upper extremity Pain in left arm Surgical History History of section Social History Housing: Apartment Alcohol intake: never Patient Tobacco Use Status: Current everyday Tobacco user Tobacco use type: Cigarette Cigarette Packs Per Day: 0.5 Cigarettes Per Day: 8 e-Cigarette/Vaping Use: Never Used Second Hand Smoke Exposure: Yes service: No Current occupational status: unemployed Cognitive needs: No Hearing needs: No Vision needs: Yes (glasses) Questionnaire Thrive Questionnaire Date Thrive assessed: 10/18/23 AUDIT C Alcohol Use Questionnaire (AUDIT-C) 1. How often do you have a drink containing alcohol?: Monthly or less Total Score: 1 Score Reviewed/Action Taken: Yes ROSAURA-7 AMB Questionnaire ROSAURA-7 Date ROSAURA - 7 assessed: 10/18/23 Source: Developed by Drs. íVctor Stewart, Yanira Diaz, Ilir Ibarra and colleagues, with an educational maia from [employer]. Review of Systems Const Denies chills, Denies headache(s) and Denies weight loss ENT Denies headache(s) Card Denies chest pain, Denies syncope, Denies irregular heart rhythm and Denies dyspnea Resp Denies chest congestion, Denies cough and Denies dyspnea GI Denies abdominal pain, Denies change in stool character, Denies nausea and Denies vomiting Musc Denies deformity and Denies joint swelling Neuro Denies syncope and Denies headache(s) Physical exam (Primary Care) Vital Signs: Last Vital Signs Pulse 59 11/30/23 13:06 BP 130/82 11/30/23 13:06 Pulse Ox 100 11/30/23 13:06 Oxygen Delivery Method Room Air 11/30/23 13:06 BMI result Body Mass Index 26.9 Tobacco/Smoking Status: Tobacco use Status Tobacco use date assessed 10/18/23 11/30/23 13:09 Patient Tobacco Use Status Current everyday Tobacco 11/30/23 13:09 Tobacco use type Cigarette 11/30/23 13:09 e-Cigarette/Vaping Use Never Used 11/30/23 13:09 Thrive Assessment: Date of Thrive Assessment Date Thrive assessed 10/18/23 11/30/23 13:09 Const General: cooperative, comfortable, no acute distress and alert Neck Neck: Yes no lymphadenopathy Thyroid: Thyroid normal Resp Effort & Inspection: normal respiratory effort Auscultation: clear to auscultation bilaterally Percussion: percussion normal Cardio Jugular venous distension: no JVD Palpation: normal PMI Rate: regular rate Rhythm: regular rhythm Heart sounds: S1 normal heart sound present and S2 normal heart sound present GI Inspection: Yes normal to inspection Palpation (GI): No hepatosplenomegaly present Skin General skin exam: no rashes or lesions noted Extrem General: Yes no clubbing, cyanosis or edema Assessment and Plan Assessment & Plan (1) Elevated BP without diagnosis of hypertension: Code(s): R03.0 - Elevated blood-pressure reading, without diagnosis of hypertension Plan: avoid elavil Coding Level of Care Code Est Pt Level 3 (70046) Diagnoses Elevated BP without diagnosis of hypertension R03.0
== END 2023-11-30 14:12 | disposition home or self-care (01) ==
PROVIDERS: PCP Internal Medicine; Visit Provider Internal Medicine
DX: R03.0 Elevated blood-pressure reading, without diagnosis of hypertension (principal)
CPT/HCPCS: 99213

== ENCOUNTER 2024-01-11 09:40 | Outpatient (REF) | payer OTHER, SELFPAY ==
--- NOTE | ~2024-01-11 | MM_ITS ---
EXAMINATION: MM SCREENING DIGITAL BREAST TOMOSYNTHESIS, BILATERAL CLINICAL INFORMATION: Screening. Asymptomatic. COMPARISON: Mammography: This study is compared with prior exams dating back to 2020. TECHNIQUE: Digital breast tomosynthesis is performed in both the craniocaudal and mediolateral oblique views along with computer-aided detection (CAD). Synthesized 2D images are generated from the tomosynthesis. FINDINGS: There are scattered areas of fibroglandular density (ACR BI-RADS breast composition Category b). There are 2 focal asymmetries in the superior aspect of the right breast in the retroareolar region. In the CC projection, one of the focal asymmetries lies just lateral to the posterior nipple line and the other lies just medial to the posterior nipple line. Additional mammographic and targeted sonographic imaging of these findings is advised. In the left breast, no are no significant masses, abnormal calcifications, or other abnormalities. MM/MM tomosynthesis screening BI IMPRESSION: 2 focal asymmetries of the right breast warrant additional mammographic and targeted sonographic imaging. No mammographic signs of malignancy left breast. ASSESSMENT: BI-RADS BI-RADS 0 - Incomplete: Needs additional Imaging. RECOMMENDATION: 1. Additional views of the left breast. 2. Targeted ultrasound if warranted after review of the additional views. 3. Radiology department staff will contact the patient for additional imaging. Additional Imaging required This examination should not preclude the clinical evaluation of a suspicious palpable abnormality. This patient's information was entered into a reminder system with a target due date for their next mammogram.
[2024-01-11 09:51] LABS: MANUAL DIFF FLAG NO
[2024-01-11 10:53] LABS: Basophils Absolute Auto 0.1 X10*3/uL (0.0-0.2); Basophils Percent Auto 0.7 % (0-2); Eosinophils Absolute Auto 0.2 X10*3/uL (0.0-0.4); Eosinophils Percent Auto 2.1 % (0-4); Hematocrit 40.9 % (37.0-47.0); Imm Gran Abs Auto 0.04 X10*3/uL (0.00-0.03); Imm Gran Pct Auto 0.5 % (0.0-0.4); Lymphocytes Absolute Auto 2.4 X10*3/uL (1.2-4.9); Lymphocytes Percent Auto 28.9 % (20-40); Mean Corpuscular HGB Conc 34.2 g/dl (31.0-35.0); Mean Corpuscular Hemoglobin 33.3 pg (27.0-33.0); Mean Corpuscular Volume 97.4 fL (80.0-98.0); Monocytes Absolute Auto 0.5 X10*3/uL (0.1-1.2); Monocytes Percent Auto 6.1 % (2-11); Neutrophils Absolute Auto 5.1 x10*3/uL (2.0-8.3); Neutrophils Percent Auto 61.7 % (45-73); Platelet Count 230 X10*3/uL (160-400); White Blood Count 8.2 X10*3/uL (4.8-10.8)
[2024-01-11 11:52] LABS: Alanine Aminotransferase 11 U/L (0-31); Albumin Level 4.5 g/dL (3.5-5.0); Alkaline Phosphatase 89 U/L (39-117); Anion Gap 13 (12-20); Aspartate Amino Transferase 13 U/L (5-31); Bilirubin Total 0.4 mg/dL (0.0-1.0); Blood Urea Nitrogen 8 mg/dL (9-16); Calcium 9.5 mg/dL (8.4-10.2); Carbon Dioxide 25 mmol/L (22-29); Chloride 106 mmol/L (96-108); Cholesterol 224 mg/dL (<200); Estimated Glomerular Filt Rate > 60; Glucose Fasting 90 mg/dL (60-99); HDL Cholesterol 44 mg/dL (>40); LDL Cholesterol Calculated 145 mg/dL (<100); Sodium 140 mmol/L (135-145); Triglycerides 176 mg/dL (<150)
[2024-01-11 12:00] LABS: Thyroid Stimulating Hormone 0.36 uIU/mL (0.32-4.0)
== END 2024-01-11 09:41 | disposition home or self-care (01) ==
LOC: HO.MAMMO 09:40
PROVIDERS: PCP Internal Medicine; Visit Provider Internal Medicine
DX: Z12.31 Encounter for screening mammogram for malignant neoplasm of breast (principal); Z13.9 Encounter for screening, unspecified; Z13.220 Encounter for screening for lipoid disorders; Z13.29 Encounter for screening for other suspected endocrine disorder; Z13.0 Encounter for screening for diseases of the blood and blood-forming organs and certain disorders involving the immune mechanism; R92.8 Other abnormal and inconclusive findings on diagnostic imaging of breast
CPT/HCPCS: 36415; 77063; 77067; 80053; 80061; 84443; 85025

== ENCOUNTER → 2024-01-11 11:15 | Outpatient (BNV) | payer OTHER, SELFPAY | PROVIDERS: PCP Internal Medicine; Visit Provider Radiology Diagnostic Radiology | DX: Z12.31 Encounter for screening mammogram for malignant neoplasm of breast (principal) | CPT/HCPCS: 77063; 77067 ==

== ENCOUNTER 2024-03-19 09:28 | Outpatient (AMB) | payer OTHER, SELFPAY ==
--- NOTE | 2024-03-19 09:29 | MHC.OFFVIS ---
Vital Signs 03/19/24 09:35 Height 5 ft 4 in Weight 163 lb 9.328 oz BMI 28.1 BP 122/62 Blood Pressure Location Rt brachial Position Sitting Pulse 84 Pulse Source Pulse Oximeter Pulse Oximetry (%) 98 Oxygen Delivery Method Room Air Intake Visit Reasons: joint pain Intake Note: Patient presents for joint pain. Allergies pregabalin [From Lyrica] Adverse Reaction (Intermediate, Verified 03/19/24 10:01) Fatigued gabapentin Adverse Reaction (Intermediate, Uncoded 03/19/24 10:01) Nausea Medication List - Last Reconciled 03/19/24 by Helio Long MD albuterol sulfate 90 mcg/actuation 2 puffs inhalation Q4-6H PRN 30 days atorvastatin 10 mg PO DAILY citalopram (Celexa) 20 mg PO DAILY lorazepam 1 mg (2 x 0.5 mg) PO BID PRN HPI Comments Details: This is a 48-year-old female who presents for a positive KRISTEN/fibromyalgia. She was evaluated by Dr. Wright in 2021 and was found to have a positive KRISTEN but no signs of an underlying autoimmune rheumatic disease. Patient had cervical spine surgery in 2022. And has continued to have pain in her neck, mid back shooting into her upper back. Generalized fatigue and soreness with activity. She denies any swollen joints. Denies any skin rashes. Denies any fevers or weight loss. Denies any symptoms suggestive of Raynaud's. Denies any history of DVT/PE. Patient has no relationship with her mother and her mother's side of the family. She is unaware of any family history of an autoimmune rheumatic disease. Has history of anxiety and follows up regularly with a psychotherapist once weekly and will be seeing a psychiatrist soon. Her sleep is broken [facility] Medical History KRISTEN positive Fibromyalgia Cervical osteoarthritis Ulnar neuropathy at elbow of left upper extremity Pain in left arm Surgical History History of section Social History Housing: Apartment Alcohol intake: never Patient Tobacco Use Status: Current everyday Tobacco user Tobacco use type: Cigarette Cigarette Packs Per Day: 0.5 Cigarettes Per Day: 8 e-Cigarette/Vaping Use: Never Used Second Hand Smoke Exposure: Yes service: No Current occupational status: unemployed Cognitive needs: No Hearing needs: No Vision needs: Yes (glasses) Female Reproductive History Menstrual Total pregnancies: 2 Full term: 2 Review of Systems Const Reports difficulty sleeping, Reports fatigue, Denies fever(s), Reports weakness and Denies weight loss ENT Reports neck pain Resp Reports no additional complaints Musc Reports back pain, Reports myalgias and Reports neck pain Neuro Reports weakness Endo Reports fatigue Physical Exam Vital Signs: Last Vital Signs Pulse 84 03/19/24 09:35 BP 122/62 03/19/24 09:35 Pulse Ox 98 03/19/24 09:35 Oxygen Delivery Method Room Air 03/19/24 09:35 BMI result Body Mass Index 28.1 Const General: cooperative, healthy appearing and comfortable Nutritional Appearance: overweight Orientation/consciousness: patient oriented x3 Limitations: no limitations HEENT Head: Yes normocephalic and Yes atraumatic Mouth: moist mucous membranes Resp Effort & Inspection: normal respiratory effort and able to speak in complete sentences Auscultation: clear to auscultation bilaterally Cardio Rate: regular rate Rhythm: regular rhythm Skin Other: Subtle livedo reticularis on her forearms Neuro General: patient oriented x3 Extrem Other: No swollen joints. No active synovitis Normal nailfold capillaroscopy Assessment & Plan Assessment & Plan (1) KRISTEN positive: Comment: 10/2021:1:320, nucleolar pattern 1: 40 DFS Code(s): R76.8 - Other specified abnormal immunological findings in serum Category: Medical Plan: This is a 48-year-old year old female who presents for evaluation of positive KRISTEN in the setting of diffuse pain. Upon evaluation I do not see any signs suggestive of an underlying autoimmune rheumatic disease. Clinical picture rather consistent with fibromyalgia Discussed management of fibromyalgia with patient. Is a noninflammatory, non-autoimmune central afferent processing disorder leading to a diffuse pain syndrome. Patient follows up regularly with her psychotherapist and will be seeing psychiatrist soon. She is on citalopram. Try to follow sleep hygiene practices. Discuss CBT for sleep with psychotherapist. Consider a referral for a sleep study from PCP to rule out ANAHY. Patient would benefit physical activity, either through formal physical therapy or by joining a gym. Advised patient that she should start activity slowly and increase as tolerated. Consider low-impact exercises such as walking, swimming, aqua therapy , light weights Patient took Lyrica before and it made her lethargic. Gabapentin caused nausea. Discussed symptoms and signs that are suggestive of an underlying autoimmune rheumatic disease. Advised patient to return if she develops any of these symptoms. Follow-up with Rheumatology on an as needed basis. Follow-up with PCP Plan I spent 30 minutes reviewing patient's chart, evaluating patient, counseling patient and documenting in the chart Coding Level of Care Code New Pt Level 3 (91691) Diagnoses KRISTEN positive R76.8
[2024-03-19 09:35] VITALS: BP 122/62; PULSE 84; O2SAT 98; BMI 28.1
== END 2024-03-19 10:03 | disposition home or self-care (01) ==
PROVIDERS: PCP Internal Medicine; Visit Provider Student in an Organized Health Care Education/Training Program
DX: R76.8 Other specified abnormal immunological findings in serum (principal)
CPT/HCPCS: 99203

== ENCOUNTER → 2024-03-19 09:28 | Outpatient (BNVA) | payer OTHER, SELFPAY | PROVIDERS: PCP Internal Medicine; Visit Provider Student in an Organized Health Care Education/Training Program | DX: R76.8 Other specified abnormal immunological findings in serum (principal); M79.7 Fibromyalgia | CPT/HCPCS: 99202 ==

== ENCOUNTER 2024-03-28 13:12 | Outpatient (REF) | payer OTHER, SELFPAY ==
--- NOTE | ~2024-03-28 | MM_ITS ---
EXAMINATION: MM DIAGNOSTIC DIGITAL BREAST TOMOSYNTHESIS, RIGHT US BREAST LIMITED, RIGHT MAMMOGRAPHY: CLINICAL INFORMATION: Diagnostic to evaluate 2 focal asymmetries/oval masses seen on screening exam, one right retroareolar region and second right superolateral to nipple anterior one third. Patient has history of known right breast cysts. COMPARISON: Mammography: 01/11/2024, 04/25/2022, 07/27/2020, and dating back to 02/03/2016. TECHNIQUE: Digital right breast tomosynthesis is performed in the following views: 3-D spot compression right CC and MLO views. Computer-aided diagnosis was used for this study. FINDINGS: There are scattered areas of fibroglandular density (ACR BI-RADS breast composition Category b). Spot compression views demonstrate a confirmation of 2 persistent oval circumscribed masses, one directly retroareolar, slightly medial, and the second slightly more posterior upper outer quadrant. The anterior measures 1.0 cm in length, and the more posterior also measures 1.0 cm in length. These will be evaluated with ultrasound. No additional suspicious finding. ULTRASOUND: CLINICAL INFORMATION: As above. COMPARISON: Correlation made with prior ultrasounds to 07/27/2020, 02/11/2016. TECHNIQUE: Targeted sonographic evaluation was performed using a high frequency linear transducer. Attention was given to the right breast retroareolar region slightly medial and superolaterally. Selected archived documentation. FINDINGS: RIGHT BREAST: -At the 11:00 axis right breast, 2 cm from the nipple, there is a hypoechoic, nearly anechoic oval mass, irregular borders, taller than wide, good through transmission, no internal color Doppler flow. This finding is indeterminate as suspicious, but may a crenating cyst. Attempted aspiration, followed by biopsy if unsuccessful is recommended via ultrasound. -The 12:00 axis, 1 cm from the nipple, there is a small intraductal mass or complicated dilated duct which appears to communicate with mild ectatic ducts, has low-level internal echoes, slightly irregular borders, however good through transmission, and no internal color Doppler flow is present. This measures 0.6 x 0.5 x 0.5 cm. This could represent a papilloma or duct filled with debris. It is indeterminate and ultrasound-guided biopsy is recommended. MM/MM tomosynthesis added views R IMPRESSION: -2 sites right breast for ultrasound-guided biopsy, 11:00 and 12:00 axis as described above. -Findings and recommendations were discussed with the patient in detail, who appears in understanding. OVERALL ASSESSMENT: Mammography: BI-RADS 4 - Suspicious finding Ultrasound: BI-RADS 4 - Suspicious finding RECOMMENDATION: Biopsy recommended This patient's information was entered into a reminder system with a target due date for their next mammogram. Electronically signed by: Donte Jaime MD 03/28/2024 04:14 PM EDT
== END 2024-03-28 13:13 | disposition home or self-care (01) ==
LOC: HO.MAMMO 13:12
PROVIDERS: PCP Internal Medicine; Visit Provider Internal Medicine
DX: N64.89 Other specified disorders of breast (principal)
CPT/HCPCS: 76642; 77061; 77065

== ENCOUNTER → 2024-03-28 13:30 | Outpatient (BNV) | payer OTHER, SELFPAY | PROVIDERS: PCP Internal Medicine; Visit Provider Radiology Diagnostic Radiology | DX: N63.11 Unspecified lump in the right breast, upper outer quadrant (principal); N63.15 Unspecified lump in the right breast, overlapping quadrants | CPT/HCPCS: 76642; 77061; 77065 ==

== ENCOUNTER 2024-03-29 08:25 | Outpatient (AMB) | payer OTHER, SELFPAY ==
--- NOTE | 2024-03-29 08:31 | A.OFFVIS_ITS ---
Vital Signs 03/29/24 08:35 Height 5 ft 4 in Weight 167 lb BMI 28.7 BP 132/74 Blood Pressure Location Lt brachial Position Sitting Pulse 75 Intake Visit Reasons: (R) Breast densities 10:00 and 12:00 Intake Note: Patient is seen in office for ultrasound biopsy consult of the right breast 10 & 12 o'clock densities. Pt denies any pain or discharge from her right breast. Patieent have the mammo and breast US yesterday 03/28. Test Preparation Tutor Required: No Accompanied by: Self / Same As Patient Allergies pregabalin [From Lyrica] Adverse Reaction (Intermediate, Verified 03/29/24 08:33) Fatigued gabapentin Adverse Reaction (Intermediate, Uncoded 03/19/24 10:01) Nausea Medication List - Last Reconciled 03/29/24 by Ralf Villar MD albuterol sulfate 90 mcg/actuation 2 puffs inhalation Q4-6H PRN 30 days atorvastatin 10 mg PO DAILY citalopram (Celexa) 20 mg PO DAILY lorazepam 1 mg (2 x 0.5 mg) PO BID PRN Is last menstrual period known: Yes Last menstrual period: 07/25/23 Patient : No HPI Comments Details: 48-year-old female patient presenting for evaluation of a recent screening mammogram of 01/11/2024 with additional right breast images and ultrasound right breast performed on 03/28/2024 which revealed 2 densities in the right breast in the subareolar location felt to be suspicious for malignancy. The patient denies a previous history of breast problems or breast surgery. She denies any ongoing breast symptoms of pain, skin change, nipple discharge, palpable mass or enlarged lymph nodes. Her family history is significant for a maternal aunt with breast cancer. Her mother from lung cancer. She is and her last period was in 08/08/2023. She is scheduled for an ultrasound-guided core biopsy x2 at the [facility] on 04/02/2024. [facility] Medical History KRISTEN positive Fibromyalgia Cervical osteoarthritis Ulnar neuropathy at elbow of left upper extremity Pain in left arm Surgical History History of section Family History Mother Lung cancer Heart disease Social History Housing: Apartment Alcohol intake: never Patient Tobacco Use Status: Current everyday Tobacco user Tobacco use type: Cigarette Cigarette Packs Per Day: 0.5 Cigarettes Per Day: 8 e-Cigarette/Vaping Use: Never Used Second Hand Smoke Exposure: Yes service: No Current occupational status: unemployed Cognitive needs: No Hearing needs: No Vision needs: Yes (glasses) Female Reproductive History Menstrual Date of last menstrual period: 07/25/23 Review of Systems Const All systems reviewed & are unremarkable except as noted in HPI and below Denies chills, Denies fever(s), Denies headache(s), Denies poor appetite and Denies weakness ENT Denies headache(s) Card Denies chest pain, Denies irregular heart rhythm, Denies palpitations and Denies dyspnea Resp Denies cough, Denies excessive phlegm production and Denies dyspnea GI Denies abdominal pain, Denies bloating, Denies change in bowel habits, Denies constipation, Denies heartburn, Denies diarrhea, Denies nausea and Denies vomiting Denies urinary frequency Musc Denies back pain, Denies muscle weakness and Denies numbness Skin/Breast Denies changing lesions and Denies unusual bruising Neuro Denies headache(s), Denies numbness, Denies paresthesias and Denies weakness Psych Denies anxiety and Denies depression Endo Denies palpitations Collins/Lymph Denies lymphadenopathy Physical Exam Vital Signs: Last Vital Signs Pulse 75 03/29/24 08:35 BP 132/74 03/29/24 08:35 BMI result Body Mass Index 28.7 Const General: cooperative and no acute distress Nutritional Appearance: well nourished Orientation/consciousness: patient oriented x3 Limitations: no limitations HEENT Head: Yes normocephalic and Yes atraumatic Ears: hearing grossly normal bilaterally Chest Other: Left breast: No skin change, no nipple retraction, no nipple discharge, no palpable mass, no enlarged lymph nodes. Right breast: No skin change, no nipple retraction, no nipple discharge, no palpable mass, no enlarged lymph nodes Resp Effort & Inspection: normal respiratory effort, no audible wheezes, no cough and no respiratory distress Cardio Jugular venous distension: no JVD GI Inspection: Yes normal to inspection Skin Other: Warm, dry, no rash Neuro General: patient oriented x3 Extrem General: Yes no clubbing, cyanosis or edema Assessment & Plan Assessment & Plan (1) Abnormal ultrasound of breast: Code(s): R92.8 - Other abnormal and inconclusive findings on diagnostic imaging of breast Category: Medical Plan 48-year-old female patient presenting with a screening mammogram and follow-up additional images and ultrasound which confirmed to densities in the right breast in the subareolar location felt to be suspicious for malignancy. She is scheduled for an ultrasound-guided core biopsy at the [facility] on 04/02/2024. On examination no palpable masses appreciated in either breast and no enlarged lymph nodes are palpable. I recommended a follow-up visit in 1 week following the biopsy to review the pathology results. She is welcome to call sooner for any problems or questions. Orders: Orders US breast ndl core biopsy RT Today R92.8 - Other abnormal and inconclusive findings on diagnostic imaging of breast US breast ndl core bio ea add Today R92.8 - Other abnormal and inconclusive findings on diagnostic imaging of breast Coding Level of Care Code New Pt Level 4 (49281) Diagnoses Abnormal ultrasound of breast R92.8
[2024-03-29 08:35] VITALS: BP 132/74; PULSE 75; BMI 28.7
== END 2024-03-29 08:54 | disposition home or self-care (01) ==
PROVIDERS: PCP Internal Medicine; Visit Provider Surgery
DX: R92.8 Other abnormal and inconclusive findings on diagnostic imaging of breast (principal)
CPT/HCPCS: 99204

== ENCOUNTER → 2024-03-29 08:25 | Outpatient (BNVA) | payer OTHER, SELFPAY | PROVIDERS: PCP Internal Medicine; Visit Provider Surgery | DX: R92.8 Other abnormal and inconclusive findings on diagnostic imaging of breast (principal) | CPT/HCPCS: 99202 ==

== ENCOUNTER 2024-04-02 08:03 | Outpatient (REF) | payer OTHER, SELFPAY ==
--- NOTE | ~2024-04-02 | MM_ITS ---
PROCEDURE: US GUIDED BREAST BIOPSY, RIGHT CLINICAL INFORMATION: Right breast 2 site biopsy for mass, Site A 11:00 axis, 2 cm from the nipple; and smaller intraductal mass Site B 12:00 axis, 1 cm from the nipple. COMPARISON: Mammography: 03/28/2024, 01/11/2024, 04/25/2022, 07/27/2020, and dating back to 02/03/2016. Ultrasound: 03/28/2024, 07/27/2020, 02/11/2016. PROCEDURAL DETAILS: The details of the procedure, as well as the risks, benefits, and alternatives to the procedure were explained to the patient in detail and all of her questions were answered, after which written informed consent was obtained. Site and side were confirmed by the team with time out. SITE A: 11:00 axis, 2 cm from the nipple, irregular mass measuring 8 x 7 x 8 mm: Prior to the procedure, sonography revealed the mass at 11:00. A time-out was performed, the lesion intended for biopsy was targeted, and the skin of the overlying right breast was then marked, prepped and draped in the usual sterile fashion. Using sonographic guidance, sterile technique, and 1% lidocaine without epinephrine for local anesthesia, multiple core biopsies were obtained through the targeted area with a 14G spring loaded Sertera core biopsy device. There was real-time confirmation of appropriate needle passage. Sampling was documented. At the completion of tissue sampling, a single butterfly shaped metallic clip was deposited at the biopsy site. SITE B: 12:00 axis, 1 cm from nipple, intraductal mass measuring 6 x 5 x 5 mm: Prior to the procedure, sonography revealed the smaller mass at 12:00, 1 cm from the nipple. A time-out was performed, the lesion intended for biopsy was targeted. The same skin oma/entry site was used for access to both biopsy sites. Using sonographic guidance, sterile technique, and 1% lidocaine without epinephrine for local anesthesia, multiple core biopsies were obtained through the targeted area with a 14G spring loaded Sertera core biopsy device. There was real-time confirmation of appropriate needle passage. Sampling was documented. At the completion of tissue sampling, a single open coil shaped metallic clip was deposited at the biopsy site. There was no evidence of immediate complication. No significant bleeding or hematoma noted. SPECIMEN: 3 well formed core samples were obtained from each site. DIGITAL POST-PROCEDURE MAMMOGRAPHY: Breast density: The tissue contains scattered areas of fibroglandular density. BI-RADS version 5, category B. There are no new mammographic findings demonstrated. The postprocedure 2-view direct digital mammogram reveals satisfactory and accurate positioning of both the biopsy clips. No hematoma present. The patient tolerated the procedure well and, after assuring adequate hemostasis, was discharged in good condition after reviewing postbiopsy breast care instructions. Final pathology results are pending. MM/MM tomosynthesis diagnostic RT IMPRESSION: 1. No immediate complication from ultrasound-guided percutaneous biopsy right breast, 2 sites as discussed. 2. Ultrasound was used to localize and guide marker clip placements. 3. The 2-view direct digital postprocedure mammogram reveals accurate in satisfactory positioning of both biopsy clips. 4. Final pathology results are pending. A separate report with final recommendations will be issued once these results are made available. Electronically signed by: Donte Jaime MD 04/02/2024 09:49 AM EDT
[2024-04-02] MEDS: Sodium Bicarbonate 8.4% 50 MEQ/50 ML VIAL SUBCUT (09:33)
[2024-04-02] MEDS: Lidocaine HCl 1 % 20 ML VIAL SUBCUT (09:34)
== END 2024-04-02 08:04 | disposition home or self-care (01) ==
LOC: HO.MAMMO 08:03
PROVIDERS: PCP Internal Medicine; Visit Provider Surgery
DX: R92.8 Other abnormal and inconclusive findings on diagnostic imaging of breast (principal)
CPT/HCPCS: 19083; 19084; 77061; 77065; 88305; A4648; C1894; J2003

== ENCOUNTER → 2024-04-02 08:05 | Outpatient (BNV) | payer OTHER, SELFPAY | PROVIDERS: PCP Internal Medicine; Visit Provider Radiology Diagnostic Radiology | DX: N60.41 Mammary duct ectasia of right breast (principal); N60.31 Fibrosclerosis of right breast; R92.321 Mammographic fibroglandular density, right breast | CPT/HCPCS: 19083; 19084; 77061; 77065 ==

== ENCOUNTER 2024-04-09 10:58 | Outpatient (AMB) | payer OTHER, SELFPAY ==
--- NOTE | 2024-04-09 11:14 | A.OFFVIS_ITS ---
Vital Signs 04/09/24 11:21 Height 5 ft 4 in Weight 167 lb 0.002 oz BMI 28.7 Pulse 72 Intake Visit Reasons: result bx (R) Breast densities 10:00 and 12:00 Intake Note: Patient is seen in office for ultrasound biopsy results of the right breast 10 & 12 o'clock densities. Pt c/o: denies any concerns Yolk Spray Drier Required: No Accompanied by: Family/Other Allergies pregabalin [From Lyrica] Adverse Reaction (Intermediate, Verified 04/09/24 11:18) Fatigued gabapentin Adverse Reaction (Intermediate, Uncoded 04/09/24 11:18) Nausea Medication List - Last Reconciled 04/09/24 by Ralf Villar MD albuterol sulfate 90 mcg/actuation 2 puffs inhalation Q4-6H PRN 30 days atorvastatin 10 mg PO DAILY citalopram (Celexa) 20 mg PO DAILY lorazepam 1 mg (2 x 0.5 mg) PO BID PRN HPI Comments Details: 48-year-old female patient presenting for evaluation of a recent screening mammogram of 01/11/2024 with additional right breast images and ultrasound right breast performed on 03/28/2024 which revealed 2 densities in the right breast in the subareolar location felt to be suspicious for malignancy. The patient denies a previous history of breast problems or breast surgery. She denies any ongoing breast symptoms of pain, skin change, nipple discharge, palpable mass or enlarged lymph nodes. Her family history is significant for a maternal aunt with breast cancer. Her mother from lung cancer. She is and her last period was in 08/08/2023. She underwent an ultrasound-guided core biopsy at the [place] [id number] on 04/02/2024. She returns today for biopsy results. Pathology revealed: A. Breast, right site A at 11 o'clock, biopsy: Benign breast tissue with stromal fibrosis, chronic inflammation, foamy macrophages and portions of cyst wall; no atypia or malignancy identified. B. Breast, right site B at 12 o'clock, biopsy: Benign breast tissue with stromal fibrosis, duct ectasia, chronic inflammation, apocrine metaplasia and foamy macrophages; no atypia or malignancy identified. [facility] Medical History KRISTEN positive Fibromyalgia Cervical osteoarthritis Ulnar neuropathy at elbow of left upper extremity Pain in left arm Surgical History History of section Family History Mother Lung cancer Heart disease Social History Housing: Apartment Alcohol intake: never Patient Tobacco Use Status: Current everyday Tobacco user Tobacco use type: Cigarette Cigarette Packs Per Day: 0.5 Cigarettes Per Day: 8 e-Cigarette/Vaping Use: Never Used Second Hand Smoke Exposure: Yes service: No Current occupational status: unemployed Cognitive needs: No Hearing needs: No Vision needs: Yes (glasses) Review of Systems Const All systems reviewed & are unremarkable except as noted in HPI and below Denies chills, Denies fever(s), Denies headache(s), Denies poor appetite and Denies weakness ENT Denies headache(s) Card Denies chest pain, Denies irregular heart rhythm, Denies palpitations and Denies dyspnea Resp Denies cough, Denies excessive phlegm production and Denies dyspnea GI Denies abdominal pain, Denies bloating, Denies change in bowel habits, Denies constipation, Denies heartburn, Denies diarrhea, Denies nausea and Denies vomiting Denies urinary frequency Musc Denies back pain, Denies muscle weakness and Denies numbness Skin/Breast Denies changing lesions and Denies unusual bruising Neuro Denies headache(s), Denies numbness, Denies paresthesias and Denies weakness Psych Denies anxiety and Denies depression Endo Denies palpitations Collins/Lymph Denies lymphadenopathy Physical Exam Vital Signs: Last Vital Signs Pulse 72 04/09/24 11:21 BMI result Body Mass Index 28.7 Const General: cooperative and no acute distress Nutritional Appearance: well nourished Orientation/consciousness: patient oriented x3 Limitations: no limitations HEENT Head: Yes normocephalic and Yes atraumatic Ears: hearing grossly normal bilaterally Chest Other: Left breast: No skin change, no nipple retraction, no nipple discharge, no palpable mass, no enlarged lymph nodes. Right breast: No skin change, no nipple retraction, no nipple discharge, no palpable mass, no enlarged lymph nodes Resp Effort & Inspection: normal respiratory effort, no audible wheezes, no cough and no respiratory distress Cardio Jugular venous distension: no JVD GI Inspection: Yes normal to inspection Skin Other: Warm, dry, no rash Neuro General: patient oriented x3 Extrem General: Yes no clubbing, cyanosis or edema Assessment & Plan Assessment & Plan (1) Abnormal ultrasound of breast: Code(s): R92.8 - Other abnormal and inconclusive findings on diagnostic imaging of breast Category: Medical Plan 48-year-old female patient presenting with a screening mammogram and follow-up additional images and ultrasound which confirmed to densities in the right breast in the subareolar location felt to be suspicious for malignancy. She underwent ultrasound-guided biopsy of the 2 lesions at the [facility] on 04/02/2024. Pathology revealed benign findings at both sites. Routine follow- up annual mammogram is recommended. She should follow up as needed. Coding Level of Care Code Est Pt Level 3 (76421) Diagnoses Abnormal ultrasound of breast R92.8
[2024-04-09 11:21] VITALS: PULSE 72; BMI 28.7
== END 2024-04-09 11:33 | disposition home or self-care (01) ==
PROVIDERS: PCP Internal Medicine; Visit Provider Surgery
DX: R92.8 Other abnormal and inconclusive findings on diagnostic imaging of breast (principal)
CPT/HCPCS: 99213

== ENCOUNTER → 2024-04-09 10:58 | Outpatient (BNVA) | payer OTHER, SELFPAY | PROVIDERS: PCP Internal Medicine; Visit Provider Surgery | DX: R92.8 Other abnormal and inconclusive findings on diagnostic imaging of breast (principal) | CPT/HCPCS: 99212 ==

== ENCOUNTER 2024-12-17 14:55 | Outpatient (AMB) | payer MEDICARE, MEDICAID, SELFPAY ==
[2024-12-17 14:58] VITALS: BP 118/74; PULSE 87; TEMP 36.3; O2SAT 97; BMI 28.7
--- NOTE | 2024-12-17 14:58 | A.OFFVIS_ITS ---
Intake Vital Signs 12/17/24 14:58 Height 5 ft 4 in Weight 167 lb BMI 28.7 BP 118/74 Blood Pressure Location Lt brachial Position Sitting Pulse 87 Pulse Source Pulse Oximeter Temp 97.3 F Temp Source Temporal Artery Scan Pulse Oximetry (%) 97 Oxygen Delivery Method Room Air Intake Visit Reasons: ELIAN DR quach/SHANI Allergies amitriptyline Allergy (Intermediate, Verified 12/17/24 15:13) lethargic pregabalin (From Lyrica) Adverse Reaction (Intermediate, Verified 12/17/24 15:13) Fatigued gabapentin Adverse Reaction (Intermediate, Uncoded 12/17/24 15:13) Nausea Medication List - Last Reconciled 12/17/24 by KEEGAN Nolen albuterol sulfate 90 mcg/actuation 2 puffs inhalation Q4-6H PRN 30 days citalopram (Celexa) 20 mg PO DAILY hydroxyzine HCl 10 mg PO BID PRN lorazepam 1 mg (2 x 0.5 mg) PO BID PRN HPI ELIAN DR quach/SHANI HPI Details [place] of care was reviewed and updated Patient reports that she has a healthcare proxy but there is none on file. She was provided the MOLST form and HCP for instructed complete and return as soon as possible Dentist: Needs to make an appt Eye:two years ago-she is due and will make an appt Snellen: Right: Left: Corrected vision: cheaters STI screening: Colonoscopy: declines colonoscopy but will try the cologuard mammogram: 04/2024, plus biopsy that was benign Pap Smer: last year -up to date PHQ-9: Flu:does not usually take the fluid vaccine COVID: x3 Tdap: 2017 Diet: Regular diet Exercise: n/a The patient is a 49-year-old female presenting for a Medicare wellness visit and management of chronic conditions. The patient has a history of cervical spondylosis with radiculopathy, which has been causing persistent pain and discomfort. She underwent anterior cervical discectomy and fusion (ACDF) surgery, but continues to experience pain due to two additional bone spurs identified in her spine. Future surgical intervention is anticipated. The patient also reports a history of rheumatoid arthritis, which has been intermittently evaluated by rheumatology. She has experienced difficulty in finding consistent care due to changes in her healthcare providers. The patient has been diagnosed with depression and anxiety, conditions that she manages while maintaining a composed exterior. She acknowledges the cultural tendency to suppress emotional distress, which she believes contributes to her mental health challenges. Hyperlipidemia has been a concern, with previous atorvastatin use discontinued due to muscle cramps. She has attempted dietary modifications to manage her cholesterol levels, which have shown mixed results. The patient experiences gastroesophageal reflux disease, for which she has been prescribed omeprazole to manage symptoms. Asthma is noted in her medical history, and she reports it as being well- controlled at present. Preventative care measures include a recent mammogram and biopsy, which revealed a benign fluid-filled cyst. She is up-to-date with her Pap smear and has received three COVID-19 vaccinations. She has opted for a Cologuard test for colon cancer screening due to a sensitive stomach that precludes traditional colonoscopy preparation. HPI Comments History of Present Illness Details reviewed past medical history- yes reviewed surgical / hospitalization history- yes reviewed current medications- yes reviewed family history- yes home safety throw rugs? no grab bars? no raised toilet seat? no working smoke detectors? yes activities of daily living difficulty bathing or showering? difficulty dressing? yes-only when she is in pain difficulty using the toilet? no difficulty getting in and out of bed? no difficulty walking? no receives help from other person's with any of the above tasks? instrumental activities of daily living uses telephone - yes gets to place out of walking distance-yes go shopping for groceries- yes repairs own meals- yes does own minor home maintenance- yes does own laundry- yes does own housework-yes manages own money- yes currently takes medication- yes end of life planning discussed advanced directives- yes advanced directives on file? give to the patient to take home and fill out as they can discussed wishes expressed in advanced directives. fall risk have you had any falls with injuries in the past year? no have you had 2 or more falls in the past year? no fall risk assessment: yes [facility] Medical History KRISTEN positive Fibromyalgia Cervical osteoarthritis Ulnar neuropathy at elbow of left upper extremity Pain in left arm Surgical History History of section Family History Mother Lung cancer Heart disease Social History Housing: Apartment Alcohol intake: never Patient Tobacco Use Status: Current everyday Tobacco user Tobacco use type: Cigarette Cigarette Packs Per Day: 0.5 Cigarettes Per Day: 8 e-Cigarette/Vaping Use: Never Used Second Hand Smoke Exposure: Yes service: No Current occupational status: unemployed Cognitive needs: No Hearing needs: No Vision needs: Yes (glasses) Questionnaire Medicare Wellness Checkup What gender do you identify with?: female During the past 4 weeks, how much have you been bothered by emotional problems such as feeling anxious, depressed, irritable, sad or downhearted, and blue?: quite a bit During the past 4 weeks, has your physical & emotional health limited your social activities with family, friends, neighbors, or groups?: moderately During the past 4 weeks, how much bodily pain have you generally had?: mild pain During the past 4 weeks, was someone available to help you if you needed & wanted help?: yes, some During the past 4 weeks, what was the hardest physical activity you could do for at least 2 minutes?: moderate Can you get to places out of walking distance without help? (For eg., can you travel alone on buses, taxis or drive your car?): Yes Can you go shopping for groceries or clothes without someone's help?: No Can you prepare your own meals?: Yes Can you do your housework without help?: No Because of any health problems, do you need the help of another person with your personal care needs such as eating, bathing, dressing or getting around the house?: Yes Can you handle your own money without help?: Yes During the past 4 weeks, how would you rate your health in general?: fair During the past 4 weeks how have things been going for you?: good & bad parts about equal Are you having difficulties driving your car?: sometimes Do you always fasten your seat belt when you are in a car?: yes, usually During past 4 weeks, have you been bothered by the following: seldom: Problems using the telephone?, sometimes: Falling or dizzy when standing up and Teeth or denture problems?, often: Trouble eating well? and always: Tiredness or fatigue? Have you fallen 2 or more times in the past year?: No Are you afraid of falling?: No Are you a smoker?: yes, and I might quit During the past 4 weeks, how many drinks of wine, beer, or other alcoholic beverages did you have?: no alcohol at all Do you exercise for about 20 minutes 3 or more times a week?: yes, all the time Have you been given information to help with the following?: yes: Hazards in your house that might hurt you? and yes: Keeping track of your medications? How often do you have trouble taking medicines the way you have been told to take them?: I always take medicine as prescribed How confident are you that you can control & manage most of your health problems?: somewhat confident What is your race?: or origin or descent Mini Mental State Exam (MMSE) Orientation What is the (year) (season) (date) (day) (month)?: year, season, date, day and month Where are we (state) (county) (town or city) (hospital) (floor)?: state, county, town or city, hospital/clinic and floor Score Score: 10 Activity of Daily Living Bathing - sponge bath, tub bath or shower: receives no assistance (gets in/out by self, if usual bathing means Dressing - getting clothes from closets & drawers, including inner/outer garments & fasteners.: gets clothes & gets completely dressed without help Toileting - going to the 'toilet room' for urine/bowel elimination & cleaning self/arranging clothes: goes to toilet room, cleans self, arranges clothes without help Transfer: moves in & out of bed and chair without help (may use support object) Continence: controls urination/bowel movements completely by self Feeding: feeds self without help Total Score: 0 Information obtained from: patient Using telephone: independent Traveling: independent Shopping: independent Preparing meals: independent Housework: independent Taking medicine: independent Managing money: independent PHQ-9 Over the last 2 weeks, how often have you been bothered by any of the following problems? 1. Little interest or pleasure in doing things: nearly every day 2. Feeling down, depressed, or hopeless: more than half the days 3. Trouble falling or staying asleep, or sleeping too much: more than half the days 4. Feeling tired or having little energy: more than half the days 5. Poor appetite or overeating: more than half the days 6. Feeling bad about yourself - or that you are a failure or have let yourself or your family down: more than half the days 7. Trouble concentrating on things, such as reading the newspaper or watching television: more than half the days 8. Moving or speaking so slowly that other people could have noticed. Or the opposite - being so fidgety or restless that you have been moving around a lot more than usual: not at all 9. Thoughts that you would be better off or of hurting yourself in some way: not at all Total score: 15 Depression Screening Interpretation: Positive Depression Screening Done: Yes 25091 - PHQ-9 Billing: Yes Source: Developed by Drs. Víctor Stewart, Yanira Diaz, Ilir Ibarra and colleagues, with an educational maia from [employer]. Thrive Questionnaire Date Thrive assessed: 12/17/24 I am a: Patient What is your living situation today?: I have a steady place to live Within the past 12 months, did the food you bought not last and you didn't have the money to get more?: Never true Within the past 12 months, did you worry whether your food would run out before you got money to buy more?: Never true Do you have trouble paying for medicines?: No Do you have trouble getting transportation to medical appointments?: No Do you have trouble paying your heating and electricity bill?: No Do you have trouble taking care of your child, family member or friend?: No Do you have trouble with day-to-day activities such as bathing, preparing meals, shopping, managing finances, etc.?: No Are you currently unemployed and looking for a job?: No Are you interested in more education?: No Please select the resources that you would like help with: None Currently or been in a relationship where the following occur: No concerns reported THRIVE Score: 0 Review of Systems Const Denies headache(s) Eyes Denies loss of vision ENT Denies vertigo, Denies dizziness, Denies headache(s), Reports neck pain and Denies sore throat Card Denies chest pain, Denies leg edema and Denies lightheadedness Resp Denies cough, Denies hemoptysis and Denies wheezing GI Denies abdominal pain, Denies melena, Denies constipation, Reports heartburn (Improves with treatment), Denies diarrhea and Denies vomiting Denies urinary frequency, Denies dysuria and Denies urinary urgency Musc Reports back pain (Med back pain shooting up into neck), Reports arthralgias, Denies joint swelling, Reports neck pain, Denies numbness and Denies tingling Neuro Denies behavioral changes, Denies vertigo, Denies dizziness, Denies headache(s), Denies loss of vision, Denies memory loss, Denies numbness and Denies tingling Psych Reports anxiety, Denies behavioral changes, Reports depression, Denies memory loss and Denies panic attacks Collins/Lymph Denies easy bleeding and Denies easy bruising Aller/Immun Denies wheezing Physical Exam Vital Signs: Last Vital Signs Temp 97.3 F 12/17/24 14:58 Pulse 87 12/17/24 14:58 BP 118/74 12/17/24 14:58 Pulse Ox 97 12/17/24 14:58 Oxygen Delivery Method Room Air 12/17/24 14:58 BMI result Body Mass Index 28.7 Const Other: IPPE/AWV: Balance Romberg Yes . Tandem walk Yes. Walk and Turn Yes . Rise from sit to stand Yes . Vision Corrective lens No Vision screen pass Hearing Whisper test pass . Urinary incont. no. EKG Not clinically necessary. Assessment & Plan Assessment & Plan (1) Medicare annual wellness visit, initial: Code(s): Z00.00 - Encounter for general adult medical examination without abnormal findings (2) Depression: Code(s): F32.A - Depression, unspecified Qualifiers: Depression Type: unspecified Qualified Code(s): F32.A - Depression, unspecified (3) KRISTEN positive: Comment: 10/2021:1:320, nucleolar pattern 1: 40 DFS Code(s): R76.8 - Other specified abnormal immunological findings in serum (4) Joint pain in both hands: Code(s): M25.541 - Pain in joints of right hand; M25.542 - Pain in joints of left hand (5) Fibromyalgia: Code(s): M79.7 - Fibromyalgia (6) Cervical osteoarthritis: Code(s): M47.812 - Spondylosis without myelopathy or radiculopathy, cervical region Qualifiers: Spinal osteoarthritis complication: unspecified spinal osteoarthritis Qualified Code(s): M47.812 - Spondylosis without myelopathy or radiculopathy, cervical region (7) Asthma: Code(s): J45.909 - Unspecified asthma, uncomplicated Qualifiers: Asthma severity: unspecified severity Asthma persistence: unspecified Asthma complication type: unspecified Qualified Code(s): J45.909 - Unspecified asthma, uncomplicated Plan Preventive guidelines reviewed with the patient. Labs ordered, we will advise [place] [facility] was reviewed and updated Patient reports that she has a healthcare proxy but there is none on file. She was provided the MOLST form and HCP for instructed complete and return as soon as possible The patient will continue to manage cervical spondylosis with radiculopathy through monitoring and potential future surgical intervention for the identified bone spurs. Rheumatoid arthritis management will involve increasing physical activity to improve symptoms. For depression and anxiety, the patient is encouraged to continue addressing these conditions, acknowledging the cultural influences on her mental health. Follow with psychiatry/therapist and continue recommended treatment regiment Hyperlipidemia management includes dietary modifications and monitoring cholesterol levels. The patient did not tolerated statin due muscle cramps. No recent labs with order for the patient to complete as soon as possible to check cholesterol levels and advise. Gastroesophageal reflux disease will be managed with omeprazole, and the patient is advised to monitor symptoms and dietary triggers. Asthma management remains stable, with no current changes required. Preventative care includes completing the Cologuard test for colon cancer screening, maintaining up-to-date mammograms, Pap smears, and COVID-19 vaccinations. Patient was informed and verbally consented to the use of an ambient scribe for clinic note documentation during this visit. Orders: Orders [facility] [place]. Panel Fast 12/17/24 F32.A - Depression, unspecified, N63.0 - Unspecified lump in unspecified breast, R92.8 - Other abnormal and inconclusive findings on diagnostic imaging of breast, M25.541 - Pain in joints of right hand, M25.542 - Pain in joints of left hand, M79.602 - Pain in left arm, M79.7 - Fibromyalgia, M47.812 - Spondylosis without myelopathy or radiculopathy, cervical region, R76.8 - Other specified abnormal immunological findings in serum, G56.22 - Lesion of ulnar nerve, left upper limb, J45.909 - Unspecified asthma, uncomplicated UA CC w/rflx Micro + Cult 12/17/24 F32.A - Depression, unspecified, N63.0 - Unspecified lump in unspecified breast, R92.8 - Other abnormal and inconclusive findings on diagnostic imaging of breast, M25.541 - Pain in joints of right hand, M25.542 - Pain in joints of left hand, M79.602 - Pain in left arm, M79.7 - Fibromyalgia, M47.812 - Spondylosis without myelopathy or radiculopathy, cervical region, R76.8 - Other specified abnormal immunological findings in serum, G56.22 - Lesion of ulnar nerve, left upper limb, J45.909 - Unspecified asthma, uncomplicated Uric Acid 12/17/24 F32.A - Depression, unspecified, N63.0 - Unspecified lump in unspecified breast, R92.8 - Other abnormal and inconclusive findings on diagnostic imaging of breast, M25.541 - Pain in joints of right hand, M25.542 - Pain in joints of left hand, M79.602 - Pain in left arm, M79.7 - Fibromyalgia, M47.812 - Spondylosis without myelopathy or radiculopathy, cervical region, R76.8 - Other specified abnormal immunological findings in serum, G56.22 - Lesion of ulnar nerve, left upper limb, J45.909 - Unspecified asthma, uncomplicated KRISTEN Reflex Titer and Pattern 12/17/24 F32.A - Depression, unspecified, N63.0 - Unspecified lump in unspecified breast, R92.8 - Other abnormal and inconclusive findings on diagnostic imaging of breast, R76.8 - Other specified abnormal immunological findings in serum, M25.541 - Pain in joints of right hand, M25.542 - Pain in joints of left hand, M79.7 - Fibromyalgia, M47.812 - Spondylosis without myelopathy or radiculopathy, cervical region, G56.22 - Lesion of ulnar nerve, left upper limb, J45.909 - Unspecified asthma, uncomplicated Cyclic Citrullinated Peptide 12/17/24 F32.A - Depression, unspecified, N63.0 - Unspecified lump in unspecified breast, R92.8 - Other abnormal and inconclusive findings on diagnostic imaging of breast, R76.8 - Other specified abnormal immunological findings in serum, M25.541 - Pain in joints of right hand, M25.542 - Pain in joints of left hand, M79.7 - Fibromyalgia, M47.812 - Spondylosis without myelopathy or radiculopathy, cervical region, G56.22 - Lesion of ulnar nerve, left upper limb, J45.909 - Unspecified asthma, uncomplicated Complete Blood Count Auto Diff 12/17/24 F32.A - Depression, unspecified, N63.0 - Unspecified lump in unspecified breast, R92.8 - Other abnormal and inconc lusive findings on diagnostic imaging of breast, M25.541 - Pain in joints of right hand, M25.542 - Pain in joints of left hand, M79.602 - Pain in left arm, M79.7 - Fibromyalgia, M47.812 - Spondylosis without myelopathy or radiculopathy, cervical region, R76.8 - Other specified abnormal immunological findings in serum, G56.22 - Lesion of ulnar nerve, left upper limb, J45.909 - Unspecified asthma, uncomplicated Lipid Panel 12/17/24 F32.A - Depression, unspecified, N63.0 - Unspecified lump in unspecified breast, R92.8 - Other abnormal and inconclusive findings on diagnostic imaging of breast, M25.541 - Pain in joints of right hand, M25.542 - Pain in joints of left hand, M79.602 - Pain in left arm, M79.7 - Fibromyalgia, M47.812 - Spondylosis without myelopathy or radiculopathy, cervical region, R76.8 - Other specified abnormal immunological findings in serum, G56.22 - Lesion of ulnar nerve, left upper limb, J45.909 - Unspecified asthma, uncomplicated TSH reflex Free T4 12/17/24 F32.A - Depression, unspecified, N63.0 - Unspecified lump in unspecified breast, R92.8 - Other abnormal and inconclusive findings on diagnostic imaging of breast, M25.541 - Pain in joints of right hand, M25.542 - Pain in joints of left hand, M79.602 - Pain in left arm, M79.7 - Fibromyalgia, M47.812 - Spondylosis without myelopathy or radiculopathy, cervic al region, R76.8 - Other specified abnormal immunological findings in serum, G56.22 - Lesion of ulnar nerve, left upper limb, J45.909 - Unspecified asthma, uncomplicated Vitamin D 25-OH Total 12/17/24 F32.A - Depression, unspecified, N63.0 - Unspecified lump in unspecified breast, R92.8 - Other abnormal and inconclusive findings on diagnostic imaging of breast, M25.541 - Pain in joints of right hand, M25.542 - Pain in joints of left hand, M79.602 - Pain in left arm, M79.7 - Fibromyalgia, M47.812 - Spondylosis without myelopathy or radiculopathy, cervical region, R76.8 - Other specified abnormal immunological findings in serum, G56.22 - Lesion of ulnar nerve, left upper limb, J45.909 - Unspecified asthma, uncomplicated Rheumatoid Factor 12/17/24 F32.A - Depression, unspecified, N63.0 - Unspecified lump in unspecified breast, R92.8 - Other abnormal and inconclusive findings on diagnostic imaging of breast, R76.8 - Other specified abnormal immunological findings in serum, M25.541 - Pain in joints of right hand, M25.542 - Pain in joints of left hand, M79.7 - Fibromyalgia, M47.812 - Spondylosis without myelopathy or radiculopathy, cervical region, G56.22 - Lesion of ulnar nerve, left upper limb, J45.909 - Unspecified asthma, uncomplicated Quality Reporting (2019) Depression/Bipolar (159/160/161/177) PHQ-9: Total score: 15 Coding Level of Care Code Medicare First (G0438) Diagnoses Medicare annual wellness visit, initial Z00.00 Depression, unspecified depression type F32.A Depression Type: unspecified KRISTEN positive R76.8 Joint pain in both hands M25.541; M25.542 Fibromyalgia M79.7 Osteoarthritis of cervical spine, unspecified spinal osteoarthritis complication status M47.812 Spinal osteoarthritis complication: unspecified spinal osteoarthritis Asthma, unspecified asthma severity, unspecified whether complicated, unspecified whether persistent J45.909 Asthma severity: unspecified severity Asthma persistence: unspecified Asthma complication type: unspecified Additional Codes PHQ-9 - 95639 - PHQ-9 Billing: Yes ([id number]) Time Spent (min) 39 Advance Care Planning Date of discussion: 12/17/24 Who was present: HCP and MOLST FORMS GIVEN TO FILL OUT AND RETURN Actual minutes spent: 4
--- OUTSIDE RECORDS SUMMARY | 2024-12-17 15:52 | XMS_ITS | Data Portability ---
Author Organization [facility] Address [address] [facility] [address] [place] [address] Care Team Providers Care Pcmh Specialist Name Role Phone ISABEL RAMSEY Primary Care Provider ANDREAS HERNANDEZ Referring Provider Assessment Encounter Date Assessment Date Assessment LastModified by Organization Details LastModified Time 04/22/2024 04/22/2024 Yojana Reece is a 48 year old right handed woman with neck pain radiating into right mid back. She has myofascial pain syndrome in her mid back region. Trigger points were palpated with reproduction of her pain inthe right rhomboid muscle. Repeat trigger point injections in right rhomboid muscle under ultrasound guidance were discussed with her. The risks and benefits of the procedure were discussed and she wishes to proceed and she will call for an appointment sveta Not available 04/23/2024 08:55:00 07/18/2024 07/18/2024 Yojana Reece is a 48 year old right handed woman with neck pain radiating into mid back. She has myofascial pain syndrome in her mid back region. Trigger points were palpated with reproduction of her pain inthe left rhomboid muscle. She is here for a trigger point injections in left rhomboid and trapezius muscle under ultrasound guidance . The risks and benefits of the procedure were discussed and she wishes to proceed She can follow up for right TPI sveta Not available 07/18/2024 11:00:08 07/22/2024 07/22/2024 Yojana Reece is a 48 year old right handed woman with neck pain radiating into right mid back. She has myofascial pain syndrome in her mid back region. Trigger points were palpated with reproduction of her pain inthe right rhomboid muscle. She is here for a trigger point injections in right rhomboid muscle under ultrasound guidance . The risks and benefits of the procedure were discussed and she wishes to proceed She can follow up as needed sveta Not available 07/22/2024 15:29:21 10/17/2024 10/17/2024 Yojana Reece is a 48 year old right handed woman with neck pain radiating into right mid back. She has myofascial pain syndrome in her mid back region. Trigger points were palpated with reproduction of her pain inthe right rhomboid and trapezius muscle. She is here for a trial of trigger point injections in right rhomboid and trapezius muscle under ultrasound guidance . The risks and benefits of the procedure were discussed and she wishes to proceed She will follow up as needed sveta Not available 10/17/2024 11:02:45 10/24/2024 10/24/2024 Yojana Reece is a 48 year old right handed woman with neck pain radiating into mid back. She has myofascial pain syndrome in her mid back region. Trigger points were palpated with reproduction of her pain inthe left rhomboid muscle. She is here for a trigger point injections in left rhomboid and trapezius muscle under ultrasound guidance . The risks and benefits of the procedure were discussed and she wishes to proceed She can follow up as needed sveta Not available 10/24/2024 11:14:07 Plan of Treatment Reminders Order Date Submit Date Provider Last Modified By Organization Details Last Modified Time Details Appointments PROCEDURE 2024 09:30A M Carter carey MD Not available Not available Not available PROCEDURE 2024 09:30A M Carter carey MD Not available Not available Not available Lab None recorded. Referral None recorded. Procedures None recorded. Surgeries None recorded. Imaging None recorded. Medication Orders None recorded. Patient TargetsNo targets recorded. Patient Instructions Encounter Date Encounter Id Patient Instructions Last Modified By Organization Details Last Modified Time 04/22/2024 [id number] She was advised against bed rest lasting longer than four days and to continue activities as tolerated. [email or web address] Not available 04/22/2024 16:46:39 07/18/2024 [id number] She was advised against bed rest lasting longer than four days and to continue activities as tolerated. [email or web address] Not available 07/18/2024 10:58:25 07/22/2024 [id number] She was advised against bed rest lasting longer than four days and to continue activities as tolerated. [email or web address] Not available 07/22/2024 15:15:13 10/17/2024 [id number] She was advised against bed rest lasting longer than four days and to continue activities as tolerated. [email or web address] Not available 10/17/2024 10:37:09 10/24/2024 [id number] She was advised against bed rest lasting longer than four days and to continue activities as tolerated. [email or web address] Not available 10/24/2024 11:07:09 Reason for Referral None Reported. Procedures Surgical History Date Name Laterality Status Provider Name and Address Organization Details Recorded Time 10/25/19 25 Trigger Point Injections under ultrasound guidance completed Carter Dominguez MD [address] [facility] , [address], [place], [address], [place] [facility] 10/24/2024 11:07:18 10/18/19 25 Trigger Point Injections under ultrasound guidance completed Carter Dominguez MD [address] [facility] , [address], [place], [address], [place] [facility] 10/17/2024 10:38:01 07/22/19 25 Trigger Point Injections under ultrasound guidance completed Carter Dominguez MD [address] [facility] , [address], [place], [address], [place] [facility] 07/22/2024 15:15:41 07/18/19 25 Trigger Point Injections under ultrasound guidance completed Carter Dominguez MD [address] , [address], [place], [address], [place] [facility] 07/18/2024 10:58:34 03/27/20 24 Trigger Point Injections under ultrasound guidance completed Carter Dominguez MD [address] , [address], [place], [address], [place] [facility] 03/27/2024 15:28:48 03/21/20 24 Trigger Point Injections under ultrasound guidance completed Carter Dominguez MD [address] [facility] , [address], [place], [address], [place] [facility] 03/22/2024 12:02:47 06/19/19 24 transposition of ulnar nerve at elbow completed Sameera Ross [facility] 03/18/2024 14:14:58 06/19/19 23 primary anterior decompression of cervical spinal cord completed Sameera Ross [facility] 03/04/2024 10:47:27 06/19/19 23 transposition of ulnar nerve at wrist completed Sameera Ross [facility] 03/18/2024 14:14:38 Imaging Results None recorded. Procedure Notes None recorded. Medical Equipment None Reported. Allergies Allergen ID Allergen Name Allergen Category Reaction Reaction Severity Criticality Documentation Date Start Date Code Code System Note Provider Name and Address Organization Details Recorded Time 87495 amitripty line medicatio n Not available Not available Not available 03/18/2024 704 RxNorm suici monica ideat ion Sameera Ross null, [place] [facility] 4 14:49:23 80688 gabapenti n medicatio n nausea Not available Not available 03/18/2024 45107 RxNorm Sameera Chiuono null, [place] [facility] 4 14:49:44 65201 Topamax medicatio n Not available Not available Not available 03/18/2024 17148 3 RxNorm UTI's Sameera Chiuono null, [place] [facility] 4 14:50:08 Medications Name Sig Start Date Stop Date Status Note LastModified by Organization Details LastModified Time atorvastati n 10 mg tablet TAKE 1 TABLET BY MOUTH EVERY DAY 07/18 completed Not Available Not Available Not Available citalopram 10 mg tablet PLEASE SEE ATTACHED FOR DETAILED DIRECTION S active Not Available Not Available No t Available prednisone 20 mg tablet TAKE 3 TABS DAILY X3DAYS, 2 TABS DAILY X3DAYS, 1 TAB DAILY X3DAYS 07/18 completed Not Available Not Available Not Available citalopram 20 mg tablet TAKE 1 TABLET BY MOUTH EVERY DAY active Not Available Not Available No t Available lorazepam 0.5 mg tablet TAKE 1 TABLET BY MOUTH TWICE A DAY NEEDED active Not Available Not Available No t Available gabapentin 300 mg capsule TAKE 1 CAPSULE BY MOUTH AT BEDTIME 10/17 completed Not Available Not Available Not Available hydroxyzine HCl 25 mg tablet TAKE 1 TABLET BY MOUTH EVERY NIGHT AT BEDTIME NEEDED INSOMNIA active Not Available Not Available No t Available hydroxyzine HCl 10 mg tablet TAKE 1 TABLET BY MOUTH TWICE A DAY NEEDED FOR ANXIETY active Not Available Not Available No t Available ondansetron 4 mg disintegrat ing tablet DISSOLVE 1 TABLET ON TONGUE ONCE DAILY NEEDED FOR NAUSEA active Not Available Not Available No t Available Ventolin HFA 90 mcg/actuati on aerosol inhaler INHALE 2 PUFF INHALED EVERY 4 TO 6 HOURS NEEDED FOR BRONCHOSP ASM FOR 30 DAYS active Not Available Not Available No t Available cyclobenzap rine 5 mg tablet TAKE 1 TABLET BY MOUTH 3 TIMES A DAY NEEDED FOR MUSCLE SPASM 03/18 completed Not Available Not Available Not Available Vitals Date Recorded Body height Heart rate Oxygen saturation Oxygen saturation in Arterial blood by Pulse oximetry Systolic blood pressure Diastolic blood pressure Provider Name and Address Organization Details Last Updated DateTime 5 162.56 cm 73 /min 97 % 97 % 112 mm[Hg] 78 mm[Hg] Aiklah Harding o [facility] 5 09:49:01 Date Recorded Body height Heart rate Oxygen saturation Oxygen saturation in Arterial blood by Pulse oximetry Systolic blood pressure Diastolic blood pressure Provider Name and Address Organization Details Last Updated DateTime 5 162.56 cm 87 /min 98 % 98 % 125 mm[Hg] 82 mm[Hg] Sameera Ross [facility] 5 14:37:32 Date Recorded Body height Heart rate Oxygen saturation Oxygen saturation in Arterial blood by Pulse oximetry Systolic blood pressure Diastolic blood pressure Provider Name and Address Organization Details Last Updated DateTime 5 162.56 cm 90 /min 97 % 97 % 114 mm[Hg] 73 mm[Hg] Akilah Hernandezegrin o [facility] 5 09:37:08 Date Recorded Body height Oxygen saturation Oxygen saturation in Arterial blood by Pulse oximetry Heart rate Systolic blood pressure Diastolic blood pressure Provider Name and Address Organization Details Last Updated DateTime 5 162.56 cm 96 % 96 % 83 /min 134 mm[Hg] 81 mm[Hg] Akilah Hernandezegrin o [facility] 5 09:40:50 Date Recorded Body height Heart rate Oxygen saturation Oxygen saturation in Arterial blood by Pulse oximetry Systolic blood pressure Diastolic blood pressure Provider Name and Address Organization Details Last Updated DateTime 4 162.56 cm 88 /min 94 % 94 % 120 mm[Hg] 74 mm[Hg] Sameera Ross [facility] 4 13:30:44 Social History Question Answer Notes LastModified by Quincee Details LastModified Time Tobacco Smoking Status Former Smoker Sameera Ross null, [place] [facility] 03/18/2024 14:10:29 Do You Have An Advance Directive? No Information n ot available 03/18/2024 Are You Blind Or Do You Have Difficulty Seeing? No Information n ot available 03/18/2024 In The 14 Days Before Symptom Onset, Have You Had Close Contact With A Laboratory-confirm ed COVID-19 While That Case Was Ill? No Information n ot available 03/18/2024 In The 14 Days Before Symptom Onset, Have You Had Close Contact With A Person Who Is Under Investigation For COVID-19 While That Person Was Ill? No Information not available 03/18/2024 Have You Been To An Area Known To Be High Risk For COVID-19? No Information not available 03/18/2024 Are You Deaf Or Do You Have Serious Difficulty Hearing? No Information not available 03/18/2024 What Is The Highest Grade Or Level Of School You Have Completed Or The Highest Degree You Have Received? [id number] Information not available 03/18/2024 What Is Your Relationship Status? Information not available 03/18/2024 How Many Years Have You Smoked Tobacco? 15 Information not available 03/18/2024 Do You Have Difficulty Walking Or Climbing Stairs? No Information not available 03/18/2024 Sex: Unknown Functional Status Question Answer Note [facility]Modified by [employer] Details LastModified Time Do you use any illicit or recreational drugs? No Information not available 03/18/2024 Do you or have you ever used any other forms of tobacco or nicotine? No Information not available 03/18/2024 What is your level of alcohol consumption? None Information not available 03/18/2024 Are you currently employed? No Information not available 03/18/2024 Do you have difficulty doing errands alone? No Information not available 03/18/2024 Do you have difficulty dressing or bathing? No Information not available 03/18/2024 Mental Status Question Answer Note LastModified by Organizat ion Details LastModified Time Do you feel stressed (tense, restless, nervous, or anxious, or unable to sleep at night)? [id number] Information not available 03/18/2024 Do you have difficulty concentrating, remembering or making decisions? No Information no t available 03/18/2024 Family History Relationship Description Onset Age of this Age Resolved Age Notes LastModified by Organization Details LastModified Time Mother Cerebrovascu lar accident [email or web address] Not available 14:09:44 Mother Diabetes mellitus [email or web address] Not available 2023 14:09:56 Notes:MOther Medical History Condition Response Coronary Artery Disease N Gout N Neuropathy/Neuralgia Y Kidney Stones Y Hyperthyroidism N Depression Y COPD N Hypothyroidism N Hepatitis C N Migrane Y Anxiety Disorder Y Diabetes N Seizures/Epilepsy N Arthritis Y Hyperlipidemia N Cancer N Stroke N Asthma Y HIV/AIDS N Headache Y Bipolar Disorder N High Cholesterol N GERD/Reflux Y Liver Disease N Pulmonary Embolism N Fibromyalgia Y Irritable Bowel Syndrome N Hypertension N Osteoporosis N Kidney Disease N Gynecological HistoryNo gynecological history recorded. Obstetrics History GPAL:G 0 P 0 0 0 0 Past Encounters Encounter ID Performer Location Encounter Start Date Encounter Closed Date Diagnosis/Indication Diagnosis SNOMED-CT Code Diagnosis ICD10 Code Diagnosis Note [id number] Carter Dominguez MD PAIN OFFICE [address] [place] [address] 03/18/2024 13:52:53 03/18/2024 16:18:42 Muscle pain 07320885 M79.18 Degenerati on of cervical intervertebral disc 81429077 M50.30 Spinal [address] nosis in cervical region 13771254 M48.02 [id number] Carter Dominguez MD PAIN OFFICE [address] [place] [address] 03/21/2024 10:48:04 03/22/2024 12:09:59 Muscle pain 50502360 M79.18 Degenerati on of cervical intervertebral disc 55114423 M50.30 Spinal thor nosis in cervical region 09261763 M48.02 [id number] Carter Dominguez MD PAIN OFFICE [address] [facility] [place] [address] 03/27/2024 14:51:39 03/27/2024 16:19:39 Muscle pain 74676903 M79.18 Degenerati on of cervical intervertebral disc 78667820 M50.30 Spinal thor nosis in cervical region 63531652 M48.02 [id number] Carter Dominguez MD PAIN OFFICE [address] [facility] [place] [address] 04/22/2024 13:20:26 04/22/2024 16:47:32 Muscle pain 01395031 M79.18 Degenerati on of cervical intervertebral disc 18273161 M50.30 Spinal thor nosis in cervical region 24003404 M48.02 [id number] Carter Dominugez MD PAIN OFFICE [address] [facility] [place] [address] 07/18/2024 09:48:16 07/18/2024 11:02:09 Muscle pain 47675251 M79.18 Degenerati on of cervical intervertebral disc 14750317 M50.30 Spinal thor nosis in cervical region 72149273 M48.02 [id number] Carter Dominguez MD PAIN OFFICE [address] [facility] [place] [address] 07/22/2024 14:29:49 07/22/2024 15:30:43 Muscle pain 60189324 M79.18 Degenerati on of cervical intervertebral disc 64461756 M50.30 Spinal thor nosis in cervical region 40020026 M48.02 [id number] Carter Dominguez MD [facility] [address] [facility] [place] [address] 10/17/2024 09:31:33 10/17/2024 11:04:02 Muscle pain 21581107 M79.18 Degenerati on of cervical intervertebral disc 83334463 M50.30 Spinal thor nosis in cervical region 86653579 M48.02 [id number] Carter Dominguez MD PAIN OFFICE [address] [facility] [place] [address] 10/24/2024 09:34:12 10/24/2024 11:37:26 Muscle pain 68355173 M79.18 Degenerati on of cervical intervertebral disc 68870202 M50.30 Spinal thor nosis in cervical region 39298879 M48.02 Health Concerns Section Related Observation LastModified by Organization Detai ls LastModified Time None Recorded Concern Status LastModified by Organization Details LastModified Time None Recorded Advance Directives Directive N: Payers Insurance Date Sequence Insurance Name Policy Number Policy Smith Covered Member ID Smith Member ID Guarantor Name 07/18/2024 1 [facility] HEALTH NET PLAN (MEDICAID HMO) [facility] Yojanadami Reece [id number] Yojana Reece 10/17/2024 1 [place] [employer] Yojana Reece [id number] Yojana Reece 10/17/2024 2 [place] [facility] Yojana Reece [id number] Yojanadami Reece Notes Date Note Type Note Provider Name and Address Organization Details Recorded Time 04/22/2024 text/html She is here for a follow up and reports good pain benefit with trigger point injections and feels she is functioning better. She has occasionally pain in upper back, left is greater than right but tolerable right now. She has no radiating pain. She has no history of bladder or bowel incontinence. Carter Dominguez MD [address] , [address], [place], [address], [facility] 04/23/2024 08:55:05 07/18/2024 text/html She is here for a left rhomboid and trapezius muscle trigger point injection under ultrasound guidance Carter Dominguez MD [address] , [address], [place], [address], [place] [facility] 07/18/2024 14:23:34 07/22/2024 text/html She is here for a trial of trigger point injection in right trapezius muscle under ultrasound guidance She is here for a trigger point injection in right rhomboid muscle under ultrasound guidance Carter Dominguez MD [address] , [address], [place], [address], [place] [facility] 07/22/2024 15:31:42 10/17/2024 text/html She is here for a trigger point injection in right rhomboid and trapezius muscle under ultrasound guidance Carter Dominguez MD [address] , [address], [place], [address], [place] [facility] 10/17/2024 11:08:31 10/24/2024 text/html She is here for a left rhomboid and trapezius muscle trigger point injection under ultrasound guidance Carter Dominguez MD [address] , [address], [place], [address], [place] [facility] 10/25/2024 10:28:40 OBGyn Episode No OBEpisode recorded.
--- OUTSIDE RECORDS SUMMARY | 2024-12-17 15:52 | XMS_ITS | Clinical Summary ---
Author Organization [facility] Address [address] [place] [address] Care Team Providers Care Electronic News Gathering Camera Person Name Role Phone Jaison Gamboa MD Primary Care Provider [phone] Surgical History Surgery Date Site/Laterality Comments NECK SURGERY 02/14/2023 PROCEDURE: HISTORICAL NECK SURGERY; COMMENT: C5-6, C6-7 ACDF, Dr. Colby OTHER SURGICAL HISTORY 01/26/2023 PROCEDURE: HISTORY OTHER; COMMENT: left thumb A1 kaleb release, left endoscopic carpal tunnel release, and left ulnar nerve decompression transposition, Dr. Nance OTHER SURGICAL HISTORY 09/07/2023 PROCEDURE: HISTORY OTHER; COMMENT: right endoscopic carpal tunnel release and right ulnar nerve decompression, Dr. Nance Medical History Medical History Date Comments Anxiety DX:Anxiety GERD (gastroesophageal reflux disease) DX:GERD (gastroesophageal reflux disease) Cervical radiculopathy due t o degenerative joint disease of spine DX:Cervical radicu lopathy due to degenerative joint disease of spine Ulnar neuropathy at elbow of left upper extremity DX:Ulnar neuropathy at elbow of left upper extremity Social History Tobacco Use Types Packs/Day Years Used Date Smoking Tobacco: Every Day Smokeless Tobacco: Current Alcohol Use Standard Drinks/Week Comments Never 0 (1 standard drink = 0.6 oz pur e alcohol) Comments Unknown Sex and Gender Information Value Date Recorded Sex Assigned at Not on file Legal Sex Female 5:32 AM EST Gender Identity Not on file Sexual Orientation Not on file Obstetrics History Last Filed Vital Signs Vital Sign Reading Time Taken Comments Blood Pressure 111/62 09/05/2023 3:49 PM EDT Pulse 74 09/05/2023 3:49 PM EDT Temperature - - Respiratory Rate - - Oxygen Saturation - - Inhaled Oxygen Concentration - - Weight 72.6 kg (160 lb) 03/22/2024 2:09 PM EDT Height 162.6 cm (5' 4 ) 03/22/2024 2:09 PM EDT Body Mass Index 27.46 03/22/2024 2:09 PM EDT Plan of Treatment Health Maintenance Due Date Last Done Comments Breast Cancer Screening 1973 Hepatitis B Vaccines (1 of 3 - 19+ 3-dose series) 1992 Pneumococcal Vaccine: 50+ Years (1 of 2 - PCV) 1992 Pneumococcal Vaccine: Pediatrics (0 to 5 Years) and At-Risk Patients (6 to 64 Years) (1 of 2 - PCV) 1992 Cervical Cancer Screening: Pap Smear 1994 Cholesterol Screening (Lipid Panel) 05/22/2022 Colorectal Cancer Screening: Colonoscopy 05/22/2022 Depression Screening 05/22/2022 HIV Screening 05/22/2022 Hepatitis C Screening 05/22/2022 Social Influencers of Health Screening 05/22/2022 Zoster Vaccines (1 of 2) 11/06/2023 COVID-19 Vaccine ( season) 2024 06/08/2021, 08/21/2020, 07/31/2020 Influenza Vaccine (Season Ended) 2025 04/12/2019, 04/16/2018, 07/07/2017, Additional history exists DTaP,Tdap,and Td Vaccines (2 - Td or Tdap) 12/05/2026 12/05/2016 HIB Vaccines Aged Out No longer eligi ble based on patient's age to complete this topic HPV Vaccines Aged Out No longer eligi ble based on patient's age to complete this topic Hepatitis A Vaccines Aged Out No long er eligible based on patient's age to complete this topic IPV Vaccines Aged Out No longer eligi ble based on patient's age to complete this topic MMR Vaccines Aged Out No longer eligi ble based on patient's age to complete this topic Meningococcal ACWY Vaccine Aged Out N o longer eligible based on patient's age to complete this topic Meningococcal B Vaccine Aged Out No l onger eligible based on patient's age to complete this topic RSV Immunization Patients Under 20 months Aged Out No longer eligible based on patient's age to complete this topic Varicella Vaccines Aged Out No longer eligible based on patient's age to complete this topic Care Teams Electronic News Gathering Camera Person Relationship Specialty Start Date End Date Jaison Gamboa MD [address] [place] [address] PCP - General Internal Medicine 07/13/21
== END 2024-12-17 15:52 | disposition home or self-care (01) ==
LOC: HO.HMCH 14:56
DX: Z00.00 Encounter for general adult medical examination without abnormal findings (principal); F32.A Depression, unspecified; R76.8 Other specified abnormal immunological findings in serum; M25.541 Pain in joints of right hand; M25.542 Pain in joints of left hand; M79.7 Fibromyalgia; M47.812 Spondylosis without myelopathy or radiculopathy, cervical region; J45.909 Unspecified asthma, uncomplicated

== ENCOUNTER → 2024-12-17 14:55 | Outpatient (BNVA) | payer MEDICARE, MEDICAID, SELFPAY | DX: Z00.00 Encounter for general adult medical examination without abnormal findings (principal); F32.A Depression, unspecified; R76.8 Other specified abnormal immunological findings in serum; M25.541 Pain in joints of right hand; M25.542 Pain in joints of left hand; M79.7 Fibromyalgia; M47.812 Spondylosis without myelopathy or radiculopathy, cervical region; J45.909 Unspecified asthma, uncomplicated | CPT/HCPCS: 96127 ==

== ENCOUNTER 2024-12-27 09:19 | Outpatient (REF) | payer MEDICARE, MEDICAID, SELFPAY ==
[2024-12-27 09:30] LABS: MANUAL DIFF FLAG NO
--- OUTSIDE RECORDS SUMMARY | 2024-12-27 09:36 | XMS_ITS | Clinical Summary ---
Author Organization [facility] Address [address] [place] [address] Care Team Providers Care [employer] Ump[employer] Name Role Phone Jaison Gamboa MD Primary Care Provider [phone] Surgical History Surgery Date Site/Laterality Comments NECK [...] 5 Years) and At-Risk Patients (6 to 49 Years) (1 of 2 - PCV) 1992 Cervical Cancer Screening: Pap Smear 1994 Cholesterol Screening (Lipid Panel) 05/22/2022 Colorectal Cancer Screening: Colonoscopy 05/22/2022 Depression Screening 05/22/2022 HIV Screening 05/22/2022 Hepatitis C Screening 05/22/2022 Social Influencers of Health Screening 05/22/2022 Zoster Vaccines (1 of 2) 11/06/2023 COVID-19 Vaccine ( season) 2024 06/08/2021, 08/21/2020, 07/31/2020 Influenza Vaccine (#1) 2025 9, 04/16/2018, 07/07/2017, Additional history exists DTaP,Tdap,and Td [...] age to complete this topic Care Teams [employer] Ump[employer] Relationship Specialty Start Date End Date Jaison Gamboa MD [address] [place] [address] PCP - General Internal Medicine 07/13/21
--- OUTSIDE RECORDS SUMMARY | 2024-12-27 09:36 | XMS_ITS | Data Portability ---
Author Organization [facility] Address [address] [facility] [address] [place] [address] Care Team Providers Care Mail Deliverer Name Role Phone ISABEL RAMSEY Primary Care Provider ANDREAS HERNANDEZ Referring Provider [phone] Assessment Encounter Date Assessment Date Assessment LastModified [...] By Organization Details Last Modified Time 04/22/2024 28014 She was advised against bed rest lasting longer than four days and to continue activities as tolerated. [email or web address] Not available 04/22/2024 16:46:39 07/18/2024 39490 She was advised against bed rest lasting longer than four days and to continue activities as tolerated. [email or web address] Not available 07/18/2024 10:58:25 07/22/2024 40282 She was advised against bed rest lasting longer than four days and to continue activities as tolerated. [email or web address] Not available 07/22/2024 15:15:13 10/17/2024 43419 She was advised against bed rest lasting longer than four days and to continue activities as tolerated. [email or web address] Not available 10/17/2024 10:37:09 10/24/2024 16159 She was advised against bed rest lasting longer than four days and to continue activities as tolerated. [email or web address] Not available 10/24/2024 11:07:09 Reason for Referral None Reported. Procedures Surgical History Date Name Laterality Status Provider Name and Address Organization Details Recorded Time 10/25/19 25 Trigger Point Injections under ultrasound guidance completed Carter Dominguez MD [address] [facility] , [address], [place], [address], [place] [facility] 10/24/2024 11:07:18 10/18/19 25 Trigger Point Injections under ultrasound guidance completed Carter Dominguez MD [address] [facility] , [address], [place], [address], [place] [facility] 10/17/2024 10:38:01 07/22/19 25 Trigger Point Injections under ultrasound guidance completed Carter Dominguez MD [address] [facility] , [address], [place], [address], [place] [facility] 07/22/2024 15:15:41 07/18/19 25 Trigger Point Injections under ultrasound guidance completed Carter Dominguez MD [address] , [address], [place], [address], [place] [facility] 07/18/2024 10:58:34 03/27/20 24 Trigger Point Injections under ultrasound guidance completed Carter Dominguez MD [address] , [address], [place], [address], [place] [facility] 03/27/2024 15:28:48 03/21/20 24 Trigger Point Injections under ultrasound guidance completed Carter Dominguez MD [address] [facility] , [address], [place], [address], [place] [facility] 03/22/2024 12:02:47 [...] Name and Address Organization Details Recorded Time 79261 amitripty line medicatio n Not available Not available Not available 03/18/2024 704 RxNorm suici monica ideat ion Sameera Ross null, [place] [facility] 4 14:49:23 63460 gabapenti n medicatio n nausea Not available Not available 03/18/2024 93900 RxNorm Sameera Chiuono null, [place] [facility] 4 14:49:44 28158 Topamax medicatio n Not available Not available Not available 03/18/2024 03181 3 RxNorm UTI's Sameera Chiuono null, [place] [...] in Arterial blood by Pulse oximetry Systolic And Diastolic Provider Name and Address Organization Details Last Updated DateTime 5 162.56 cm 73 /min 97 % 97 % 112/78 mm[Hg] Akilah Harding o [place] [facility] 5 09:49:01 Date Recorded Body height Heart rate Oxygen saturation Oxygen saturation in Arterial blood by Pulse oximetry Systolic And Diastolic Provider Name and Address Organization Details Last Updated DateTime 5 162.56 cm 87 /min 98 % 98 % 125/82 mm[Hg] Sameera Ross [place] [facility] 5 14:37:32 Date Recorded Body height Heart rate Oxygen saturation Oxygen saturation in Arterial blood by Pulse oximetry Systolic And Diastolic Provider Name and Address Organization Details Last Updated DateTime 5 162.56 cm 90 /min 97 % 97 % 114/73 mm[Hg] Akilah Harding o [place] [facility] 5 09:37:08 Date Recorded Body height Oxygen saturation Oxygen saturation in Arterial blood by Pulse oximetry Heart rate Systolic And Diastolic Provider Name and Address Organization Details Last Updated DateTime 5 162.56 cm 96 % 96 % 83 /min 134/81 mm[Hg] Akilah Harding o [place] [facility] 5 09:40:50 Date Recorded Body height Heart rate Oxygen saturation Oxygen saturation in Arterial blood by Pulse oximetry Systolic And Diastolic Provider Name and Address Organization Details Last Updated DateTime 162.56 cm 88 /min 94 % 94 % 120/74 mm[Hg] Sameera Ross [place] [facility] 4 13:30:44 Social History Question Answer Notes LastModified by Organizat ion Details LastModified Time Tobacco Smoking Status Former [...] Or The Highest Degree You Have Received? SM76515-5 Information not available 03/18/2024 What Is Your Relationship Status? Information not available 03/18/2024 How Many Years Have You Smoked Tobacco? 15 Information not available 03/18/2024 Do You Have Difficulty Walking Or Climbing Stairs? No Information not available 03/18/2024 Sex: Unknown Functional Status Question Answer Note LastModified by Organizat ion Details LastModified Time Do you use any [...] anxious, or unable to sleep at night)? [id number] Information not available 03/18/2024 Do you have [...] SNOMED-CT Code Diagnosis ICD10 Code Diagnosis Note [id number] Carter Dominguez MD PAIN OFFICE [address] [place] [address] 03/18/2024 13:52:53 03/18/2024 16:18:42 Muscle pain 83616196 M79.18 Degenerati on of cervical intervertebral disc 27421906 M50.30 Spinal thor nosis in cervical region 44005658 M48.02 [id number] Carter Dominguez MD PAIN OFFICE [address] [place] [address] 03/21/2024 10:48:04 03/22/2024 12:09:59 Muscle pain 33094782 M79.18 Degenerati on of cervical intervertebral disc 71289867 M50.30 Spinal thor nosis in cervical region 61484566 M48.02 [id number] Carter Dominguez MD PAIN OFFICE [address] [place] [address] 03/27/2024 14:51:39 03/27/2024 16:19:39 Muscle pain 57150177 M79.18 Degenerati on of cervical intervertebral disc 75556662 M50.30 Spinal thor nosis in cervical region 24514530 M48.02 [id number] Carter Dominguez MD [facility] [address] [place] [address] 04/22/2024 13:20:26 04/22/2024 16:47:32 Muscle pain 26298509 M79.18 Degenerati on of cervical intervertebral disc 03637073 M50.30 Spinal thor nosis in cervical region 11633335 M48.02 [id number] Carter Dominguez MD PAIN OFFICE [address] [place] [address] 07/18/2024 09:48:16 07/18/2024 11:02:09 Muscle pain 92552140 M79.18 Degenerati on of cervical intervertebral disc 95602758 M50.30 Spinal thor nosis in cervical region 39807032 M48.02 97120 Carter Dominguez MD PAIN OFFICE [address] [place] [address] 07/22/2024 14:29:49 07/22/2024 15:30:43 Muscle pain 89282896 M79.18 Degenerati on of cervical intervertebral disc 84455368 M50.30 Spinal thor nosis in cervical region 01468383 M48.02 [id number] Carter Dominguez MD PAIN OFFICE [address] [place] [address] 10/17/2024 09:31:33 10/17/2024 11:04:02 Muscle pain 28302783 M79.18 Degenerati on of cervical intervertebral disc 27420454 M50.30 Spinal thor nosis in cervical region 38019624 M48.02 [id number] Carter Dominguez MD PAIN OFFICE [address] [facility] [place] [address] 10/24/2024 09:34:12 10/24/2024 11:37:26 Muscle pain 35876615 M79.18 Degenerati on of cervical intervertebral disc 07024087 M50.30 Spinal thor nosis in cervical region 72601525 M48.02 Health Concerns Section Related Observation LastModified by Organization Detai ls LastModified Time None Recorded Concern Status LastModified by Organization Details LastModified Time None Recorded Advance Directives Directive N: Payers Insurance Date Sequence Insurance Name Policy Number Policy Smith Covered Member ID Smith Member ID Guarantor Name 07/18/2024 1 [facility] - HEALTH NET PLAN (MEDICAID HMO) [facility] Yojanadami Reece [id number] Yojana Reece 10/17/2024 1 [place] [employer] Yojana Reece [id number] Yojana Reece 10/17/2024 2 [place] [facility] Yojana Reece [id number] Yojana Reece Notes Date Note Type Note Provider [...] or bowel incontinence. Carter Dominguez MD [address] , [address], [place], [address], [facility] 04/23/2024 08:55:05 07/18/2024 text/html She is here for a left rhomboid and trapezius muscle trigger point injection under ultrasound guidance Carter Dominguez MD [address] , [address], [place], [address], [facility] 07/18/2024 14:23:34 07/22/2024 text/html She is here for a trial of trigger point injection in right trapezius muscle under ultrasound guidance She is here for a trigger point injection in right rhomboid muscle under ultrasound guidance Carter Dominguez MD [address] [facility] , [address], [place], [address], [place] [facility] 07/22/2024 15:31:42 10/17/2024 text/html She is here for a trigger point injection in right rhomboid and trapezius muscle under ultrasound guidance Carter Dominguez MD [address] [facility] , [address], [place], [address], [place] [facility] 10/17/2024 11:08:31 10/24/2024 text/html She is here for a left rhomboid and trapezius muscle trigger point injection under ultrasound guidance Carter Dominguez MD [address] [facility] , [address], [place], [address], [place] [facility] 10/25/2024 10:28:40 OBGyn Episode No OBEpisode recorded.
[2024-12-27 10:11] LABS: Appearance Urine Clear; Glucose Urine UA Negative (Negative); PH 6.0 (5.0-9.0); Specific Gravity - Urine 1.025 (1.005-1.025); UMIC TRIGGER UACC YES
[2024-12-27 10:25] LABS: Hematocrit 43.1 % (37.0-47.0); Hemoglobin 14.6 g/dl (12.0-16.0); Imm Gran Abs Auto 0.03 X10*3/uL (0.00-0.03); Imm Gran Pct Auto 0.3 % (0.0-0.4); Lymphocytes Absolute Auto 3.0 X10*3/uL (1.2-4.9); Mean Corpuscular HGB Conc 33.9 g/dl (31.0-35.0); Mean Corpuscular Hemoglobin 32.1 pg (27.0-33.0); Mean Corpuscular Volume 94.7 fL (80.0-98.0); NRBC Abs Auto 0.000 X10*3/uL (0.0-0.012); NRBC Pct Auto 0.0 /100WBC (0.0-0.2); Platelet Count 247 X10*3/uL (160-400); Red Blood Count 4.55 X10*6/uL (4.20-5.50); White Blood Count 8.8 X10*3/uL (4.8-10.8)
[2024-12-27 10:56] LABS: Alanine Aminotransferase 25 U/L (0-31); Albumin Level 4.6 g/dL (3.5-5.0); Alkaline Phosphatase 96 U/L (39-117); Anion Gap 12 (12-20); Aspartate Amino Transferase 23 U/L (5-31); Blood Urea Nitrogen 11 mg/dL (9-16); Calcium 9.4 mg/dL (8.4-10.2); Carbon Dioxide 25 mmol/L (22-29); Chloride 108 mmol/L (96-108); Cholesterol 259 mg/dL (<200); Estimated Glomerular Filt Rate > 60; HDL Cholesterol 41 mg/dL (>40); Potassium 3.9 mmol/L (3.3-5.1); Sodium 141 mmol/L (135-145); Total Protein 6.9 g/dL (6.5-8.0); Triglycerides 228 mg/dL (<150); Uric Acid 4.1 mg/dL (2.4-5.7)
[2025-01-04 08:09] LABS: Anti Nuclear Antibody Pattern Nuclear, Nucleolar; Anti Nuclear Antibody Screen POSITIVE (NEGATIVE); Anti Nuclear Antibody Titer 1:1280 titer
== END 2024-12-27 09:20 | disposition home or self-care (01) ==
LOC: HO.LAB 09:19
DX: M79.7 Fibromyalgia (principal); F32.A Depression, unspecified; N63.0 Unspecified lump in unspecified breast; R92.8 Other abnormal and inconclusive findings on diagnostic imaging of breast; M25.541 Pain in joints of right hand; M25.542 Pain in joints of left hand; M79.602 Pain in left arm; M47.812 Spondylosis without myelopathy or radiculopathy, cervical region; R76.8 Other specified abnormal immunological findings in serum; G56.22 Lesion of ulnar nerve, left upper limb; J45.909 Unspecified asthma, uncomplicated
CPT/HCPCS: 36415; 80053; 80061; 81001; 82306; 84443; 84550; 85025; 86038; 86039; 86200; 86431

== ENCOUNTER 2025-01-16 11:31 | Outpatient (REF) | payer MEDICARE, MEDICAID, SELFPAY ==
--- OUTSIDE RECORDS SUMMARY | 2025-01-16 12:15 | XMS_ITS | Clinical Summary ---
Author Organization [facility] [place] Address [address] [place] [address] Care Team Providers Care Rail Engineer Name Role Phone Jaison Gamboa MD Primary Care Provider [phone] Surgical History Surgery Date Site/Laterality Comments NECK [...] Years (1 of 2 - PCV) 1992 Cervical Cancer Screening: Pap Smear 1994 Cholesterol Screening (Lipid Panel) 05/22/2022 Colorectal Cancer Screening: Colonoscopy 05/22/2022 HIV Screening 05/22/2022 Hepatitis C Screening 05/22/2022 Social Influencers of Health Screening 05/22/2022 Zoster Vaccines (1 of 2) 11/06/2023 COVID-19 Vaccine (4 - season) 2024 06/08/2021, 08/21/2020, 07/31/2020 Depression Screening 06/19/2024 Influenza Vaccine (#1) 2025 9, 04/16/2018, 07/07/2017, [...] age to complete this topic Care Teams Rail Engineer Relationship Specialty Start Date End Date Jaison Gamboa MD [address] [place] [address] Drive [address] [place] [address] PCP - General Internal Medicine 07/13/21
== END 2025-01-16 11:32 | disposition home or self-care (01) ==
LOC: HO.MAMMO 11:31
PROVIDERS: Visit Provider Internal Medicine
DX: Z12.31 Encounter for screening mammogram for malignant neoplasm of breast (principal)
CPT/HCPCS: 77063; 77067

== ENCOUNTER → 2025-01-16 11:45 | Outpatient (BNV) | payer MEDICARE, MEDICAID, SELFPAY | PROVIDERS: Visit Provider Internal Medicine | DX: Z12.31 Encounter for screening mammogram for malignant neoplasm of breast (principal) | CPT/HCPCS: 77063; 77067 ==

== ENCOUNTER 2025-05-02 13:04 | Outpatient (REF) | payer MEDICARE, MEDICAID, SELFPAY ==
--- OUTSIDE RECORDS SUMMARY | 2025-05-01 03:12 | XMS_ITS | Encounter Summary ---
Author Organization [facility] [place] Address [address] [place] [address] Care Team Providers Care Crepe Box Tender Name Role Phone Jaison Gamboa MD Primary Care Provider Reason for Referral * Consultation (Routine) - Authorized Specialty Diagnoses / Procedures Referred By Katerina flores Referred To Contact Cardiology Diagnoses Chest pain Reynaldo Velazquez PA [address] [place] [address] Phone: tel: fax: [facility] [address] [facility] [address] [place] [address] Phone: tel: fax: Referral ID Status Reason Start Date Expiration Date Visits Requested Visits Authorized [id number] Authorized Specialty Services Required 05/01/2026 1 1 Reason for Visit * Reason Comments Chest Pain Chest pain since night radiating to left shoulder and arm, 01/26 Encounter Details Date Type Department Care Team ([facility] Contact Info) Description 05/01/2025 3:12 AM EST - 05/01/2025 3:13 AM EST Emergency [facility] Emergency [address] [place] [id number] Chest pain, unspecified type (Primary Dx) Discharge Disposition: Home or Self Care Social History Tobacco Use Types Packs/Day Years Used Date Smoking Tobacco: Every Day Smokeless Tobacco: Current Alcohol Use Standard Drinks/Week Comments Never 0 (1 standard drink = 0.6 oz pur e alcohol) Comments Unknown Sex and Gender Information Value Date Recorded Sex Assigned at Not on file Legal Sex Female 5:32 AM EST Gender Identity Not on file Sexual Orientation Not on file documented as of this encounter Last Filed Vital Signs Vital Sign Reading Time Taken Comments Blood Pressure 144/83 05/01/2025 12:04 AM EST Pulse 100 05/01/2025 12:04 AM EST Temperature 36.6 C (97.8 F) 05/01/2025 12:04 AM EST Respiratory Rate 15 05/01/2025 12:04 AM EST Oxygen Saturation 99% 05/01/2025 12:04 AM EST Inhaled Oxygen Concentration - - Weight 76.7 kg (169 lb) 05/01/2025 12:04 AM EST Height 162.6 cm (5' 4 ) 05/01/2025 12:04 AM EST Body Mass Index 29.01 05/01/2025 12:04 AM EST documented in this encounter Functional Status * Calculated C-SSRS Risk Score (Lifetime/Recent) Answer Date of Assessment Author No Risk Indicated 05/01/2025 12:04 AM EST Rima Khan RN * Temperance Suicide Severity Rating Scale (Screener/Recent Self-Report) Question Answer Date of Assessment Author 1. Wish to be (Past 1 Month) No 12:04 AM EST Rima Khan RN 2. Non-Specific Active Suici monica Thoughts (Past 1 Month) No 05/01/2025 12:04 AM EST Behzad Khan i, RN 6. Suicidal Behavior (Lifetime) No 12:04 AM EST Rima Khan RN documented as of this encounter Discharge Instructions * Attachments The following attachments cannot be sent through Care Everywhere. * Chest Pain (Iraqi) documented in this encounter Discharge Disposition Disposition Code Departure Means Destination Comment s Home or Self Care documented in this encounter Progress Notes * Rima Khan RN - 05/01/2025 12:04 AM EST Chest pain since last night radiating to left shoulder and arm, 01/26. Pt woke up with pain documented in this encounter Plan of Treatment Scheduled Referrals Name Type Priority Associated Diagnoses Order Schedule Ambulatory referral to Cardiology Outpatient Referral Routine 1 Occurrence s starting 05/01/2025 until 05/01/2026 documented as of this encounter Procedures Procedure Name Priority Date/Time Associated Diagnosis Comments XR CHEST 2 VIEWS STAT 05/01/2025 1:56 AM EST TROPONIN I HIGH SENSITIVITY Timed 05/01/2025 12:25 AM EST CBC WITH AUTO DIFFERENTIAL STAT 05/01/2025 12:25 AM EST CBC AND DIFFERENTIAL STAT 05/01/2025 12:25 AM EST B-TYPE NATRIURETIC PEPTIDE STAT 05/01/2025 12:25 AM EST MAGNESIUM STAT 05/01/2025 12:25 AM EST LIPASE STAT 05/01/2025 12:25 AM EST COMPREHENSIVE METABOLIC PANEL STAT 05/01/2025 12:25 AM EST ECG 12-LEAD STAT 05/01/2025 12:17 AM EST ECG ANNOTATED 05/01/2025 documented in this encounter Results * XR Chest 2 Views (05/01/2025 1:56 AM EST) Anatomical Region Laterality Modality Body Radiographic Carleen ging 05/01/2025 7:48 AM EST Impressions 05/01/2025 7:48 AM EST No acute cardiopulmonary findings. -------- FINAL REPORT -------- Dictated By: Eduardo Hammer Dictated Date: 05/01/2025 07:48 ET Assigned Physician: Eduardo Hammer Reviewed and Electronically Signed By: Eduardo Hammer Signed Date: 05/01/2025 07:48 ET Workstation ID: [id number] Transcribed By: Self Edit Transcribed Date: 05/01/2025 07:48 ET Narrative 05/01/2025 7:48 AM EST PROCEDURE: PA and lateral radiographs of the chest. HISTORY: chest pain. COMPARISON: None. FINDINGS: Lower cervical ACDF. Calcifications projecting in the soft tissues adjacent to the left humeral head suggestive of calcific tendinitis. Lungs, pleural spaces, pulmonary vasculature, and cardiomediastinal contours are normal. Procedure Note Eduardo Hammer MD - 05/01/2025 PROCEDURE: PA and lateral radiographs of the chest. HISTORY: chest pain. COMPARISON: None. FINDINGS: Lower cervical ACDF. Calcifications projecting in the soft tissuesadjacent to the left humeral head suggestive of calcific tendinitis.Lungs, pleural spaces, pulmonary vasculature, and cardiomediastinalcontours are normal. IMPRESSION: No acute cardiopulmonary findings. -------- FINAL REPORT -------- Dictated By: Eduardo Hammer Dictated Date: 05/01/2025 07:48 ET Assigned Physician: Eduardo Hammer Reviewed and Electronically Signed By: Eduardo Hammer Signed Date: 05/01/2025 07:48 ET Workstation ID: [id number] Transcribed By: Self Edit Transcribed Date: 05/01/2025 07:48 ET Addison Villaseñor MD IMG XR PROCEDURES Final R esult * (ABNORMAL) CBC auto differential (05/01/2025 12:25 AM EST) WBC 9.4 4.8 - 10.8 K/mcL LAB HEMETOLOGY METHOD 05/01/2025 1:01 AM [facility] RBC 4.10 3.80 - 4.80 M/mcL LAB HEMETOLOGY METHOD 05/01/2025 1:01 AM [facility] Hemoglobin 13.4 11.5 - 16.0 g/dL LAB HEMETOLOGY METHOD 05/01/2025 1:01 AM [facility] Hematocrit 39.4 35.0 - 47.0 % LAB HEMETOLOGY METHOD 05/01/2025 1:01 AM [facility] MCV 95.6 79.0 - 98.0 FL LAB HEMETOLOGY METHOD 05/01/2025 1:01 AM [facility] MCH 32.5(H) 27.0 - 32.0 pcg LAB HEMETOLOGY METHOD 05/01/2025 1:01 AM [facility] MCHC 34.0 32.0 - 37.0 g/dL LAB HEMETOLOGY METHOD 05/01/2025 1:01 AM [facility] RDW 13.7 11.0 - 15.0 % LAB HEMETOLOGY METHOD 05/01/2025 1:01 AM [facility] Platelets 260 130 - 400 K/mcL LAB HEMETOLOGY METHOD 05/01/2025 1:01 AM [facility] MPV 9.4 7.0 - 11.0 FL LAB HEMETOLOGY METHOD 05/01/2025 1:01 AM [facility] NRBC 0.0 <1.0 % LAB HEMETOLOGY METHOD 05/01/2025 1:01 AM [facility] NRBC Absolute 0.00 <0.10 K/mcL LAB HEMETOLOGY METHOD 05/01/2025 1:01 AM [facility] Neutrophils Relative 39.8 % LAB HEMETOLOGY METHOD 05/01/2025 1:01 AM [facility] Lymphocytes Relative 47.3 % LAB HEMETOLOGY METHOD 05/01/2025 1:01 AM [facility] Monocytes Relative 8.1 % LAB HEMETOLOGY METHOD 05/01/2025 1:01 AM [facility] Eosinophils Relative 4.1 % LAB HEMETOLOGY METHOD 05/01/2025 1:01 AM [facility] Basophils Relative 0.5 % LAB HEMETOLOGY METHOD 05/01/2025 1:01 AM [facility] Immature Granulocytes Relative 0.2 % LAB HEMETOLOGY METHOD 05/01/2025 1:01 AM [facility] Neutrophils Absolute 3.72 1.50 - 7.00 K/mcL LAB HEMETOLOGY METHOD 05/01/2025 1:01 AM EST [facility] Lymphocytes Absolute 4.42 1.00 - 5.00 K/mcL LAB HEMETOLOGY METHOD 05/01/2025 1:01 AM EST [facility] Monocytes Absolute 0.76 0.20 - 1.00 K/mcL LAB HEMETOLOGY METHOD 05/01/2025 1:01 AM EST [facility] Eosinophils Absolute 0.38 0.00 - 0.50 K/[facility] LAB HEMETOLOGY METHOD 05/01/2025 1:01 AM EST [facility] Basophils Absolute 0.05 0.00 - 0.20 K/[facility] LAB HEMETOLOGY METHOD 05/01/2025 1:01 AM EST [facility] Immature Granulocytes Absolute 0.02 0.00 - 0.03 K/[facility] LAB HEMETOLOGY METHOD 05/01/2025 1:01 AM EST [facility] Blood Venous blood specimen / Unknown Venipuncture / Unknown 05/01/2025 12:25 AM EST 05/01/2025 12:56 AM EST Addison Villaseñor MD LAB BLOOD ORDERABLES Kasey l Result [facility] [address] [place] [address], * Troponin I high sensitivity (05/01/2025 12:25 AM EST) High Sensitivity Troponin I 6 <=54 ng/L LAB CHEMISTRY METHOD 05/01/2025 1:25 AM EST [facility] Blood Venous blood specimen / Unknown Venipuncture / Unknown 05/01/2025 12:25 AM EST 05/01/2025 12:56 AM EST Narrative [facility] - 05/01/2025 1:25 AM EST High levels of biotin in samples may falsely decrease hsTroponin values. Use caution when interpreting hsTroponin results in patients taking biotin who exhibit renal impairment (eGFR <60) or in patients taking more than 20 mg/day of biotin. us Addison Villaseñor MD LAB BLOOD ORDERABLES Kasey l Result Performing Organization Address [facility]/ZIP Co de Phone Number [facility] [address] [place] [address], [place] [phone] * B-type natriuretic peptide (05/01/2025 12:25 AM EST) BNP <2 <=100 pcg/mL LAB CHEMISTRY METHOD 05/01/2025 1:30 AM EST [facility] Blood Venous blood specimen / Unknown Venipuncture / Unknown 05/01/2025 12:25 AM EST 05/01/2025 12:56 AM EST us Addison Villaseñor MD LAB BLOOD ORDERABLES Kasey l Result Performing Organization Address [facility]/ZIP Co de Phone Number [facility] [address] [place] [address], [place] [phone] * Magnesium (05/01/2025 12:25 AM EST) Pathologist [facility] Magnesium 1.9 1.9 - 2.6 mg/dL LAB CHEMISTRY METHOD 05/01/2025 1:22 AM EST [facility] Blood Venous blood specimen / Unknown Venipuncture / Unknown 05/01/2025 12:25 AM EST 05/01/2025 12:56 AM EST us Addison Villaseñor MD LAB BLOOD ORDERABLES Kasey l Result Performing Organization Address City/[facility]/ZIP Co de Phone Number [facility] [address] [place] [address], [place] [phone] * (ABNORMAL) Lipase (05/01/2025 12:25 AM EST) Lipase 82(H) 13 - 75 unit/L LAB CHEMISTRY METHOD 05/01/2025 1:22 AM [facility] Blood Venous blood specimen / Unknown Venipuncture / Unknown 05/01/2025 12:25 AM EST 05/01/2025 12:56 AM EST us Addison Villaseñor MD LAB BLOOD ORDERABLES Kasey l Result [facility] [address] [place] [address], * (ABNORMAL) Comprehensive metabolic panel (05/01/2025 12:25 AM EST) Sodium 138 133 - 145 mmol/L LAB CHEMISTRY METHOD 05/01/2025 1:22 AM [facility] Potassium 3.5 3.5 - 5.5 mmol/L LAB CHEMISTRY METHOD 05/01/2025 1:22 AM [facility] Chloride 106 96 - 110 mmol/L LAB CHEMISTRY METHOD 05/01/2025 1:22 AM [facility] CO2 26 21 - 32 mmol/L LAB CHEMISTRY METHOD 05/01/2025 1:22 AM [facility] Anion Gap 6 3 - 11 LAB CHEMISTRY METHOD 05/01/2025 1:22 AM [facility] Glucose 144(H) 70 - 100 mg/dL LAB CHEMISTRY METHOD 05/01/2025 1:22 AM [facility] BUN 12 5 - 25 mg/dL LAB CHEMISTRY METHOD 05/01/2025 1:22 AM [facility] Creatinine 0.80 0.50 - 1.10 mg/dL LAB CHEMISTRY METHOD 05/01/2025 1:22 AM [facility] eGFR 89 >=60 mL/min/1. 73m2 LAB CHEMISTRY METHOD 05/01/2025 1:22 AM [facility] Comment:Calculation based on the Chronic Kidney Disease Epidemiology Collaboration (CKD-EPI) equation refit without adjustment for race. BUN/Creatinine Ratio 15.0 LAB CHEMISTRY METHOD 05/01/2025 1:22 AM [facility] Calcium 8.9 8.5 - 10.5 mg/dL LAB CHEMISTRY METHOD 05/01/2025 1:22 AM [facility] AST (SGOT) 18 10 - 42 unit/L LAB CHEMISTRY METHOD 05/01/2025 1:22 AM [facility] ALT (SGPT) 31 10 - 60 unit/L LAB CHEMISTRY METHOD 05/01/2025 1:22 AM [facility] Alkaline Phosphatase 100 42 - 121 unit/L LAB CHEMISTRY METHOD 05/01/2025 1:22 AM [facility] Total Protein 6.7 6.0 - 8.0 g/dL LAB CHEMISTRY METHOD 05/01/2025 1:22 AM [facility] Albumin 3.9 3.2 - 5.0 g/dL LAB CHEMISTRY METHOD 05/01/2025 1:22 AM [facility] Total Bilirubin 0.3 0.0 - 1.4 mg/dL LAB CHEMISTRY METHOD 05/01/2025 1:22 AM [facility] Blood Venous blood specimen / Unknown Venipuncture / Unknown 05/01/2025 12:25 AM EST 05/01/2025 12:56 AM EST us Addison Villaseñor MD LAB BLOOD ORDERABLES Kasey l Result [facility] [address] [place] [address], * ECG 12 lead (05/01/2025 12:17 AM EST) Ventricular Rate ECG 88 BPM GEMUSE Atrial Rate 88 BPM GEMUSE P-R Interval 130 ms GEMUSE QRS Duration 82 ms GEMUSE Q-T Interval 398 ms GEMUSE QTc 481 ms GEMUSE P Wave [place] 77 degrees GEMUSE R [place] 70 degrees GEMUSE T [place] 74 degrees GEMUSE ECG Interpretation Normal sinus rhythm Nonspecific ST abnormality Abnormal ECG No previous ECGs available Confirmed by GUANAKO BURROUGHS ([id number]) on 05/01/2025 9:26:01 PM GEMUSE 05/01/2025 12:1 7 AM EST 05/01/2025 9:26 PM EST us Addison Villaseñor MD ECG ORDERABLES Final Res ult GEMUSE * ECG-Annotated (05/01/2025) us Provider Onbase ECG ORDERABLES Final Result documented in this encounter Visit Diagnoses Diagnosis Chest pain, unspecified type- Primary documented in this encounter Active and Recently Administered Medications Orders Medications Ordered That Joseph ht Not Have Been Administered Count Last Ordered Date First Ordered Date aspirin chewable tablet 324 mg 1 05/01/2025 EKG Orders Without Results Count Last Ordered D ate First Ordered Date ECG 12-LEAD 1 05/01/2025 documented in this encounter Care Teams Crepe Box Tender Relationship Specialty Start Date End Date Jaison Gamboa MD [address] [place] [address] PCP - General Internal Medicine 07/13/21 documented as of this encounter
[2025-05-02 18:14] LABS: MANUAL DIFF FLAG NO
[2025-05-02 18:39] LABS: Hematocrit 40.8 % (37.0-47.0); Hemoglobin 13.8 g/dl (12.0-16.0); Imm Gran Abs Auto 0.02 X10*3/uL (0.00-0.03); Imm Gran Pct Auto 0.3 % (0.0-0.4); Lymphocytes Absolute Auto 2.7 X10*3/uL (1.2-4.9); Mean Corpuscular HGB Conc 33.8 g/dl (31.0-35.0); Mean Corpuscular Hemoglobin 32.2 pg (27.0-33.0); Mean Corpuscular Volume 95.3 fL (80.0-98.0); NRBC Abs Auto 0.000 X10*3/uL (0.0-0.012); NRBC Pct Auto 0.0 /100WBC (0.0-0.2); Platelet Count 272 X10*3/uL (160-400); Red Blood Count 4.28 X10*6/uL (4.20-5.50); White Blood Count 6.9 X10*3/uL (4.8-10.8)
--- OUTSIDE RECORDS SUMMARY | 2025-05-02 20:57 | XMS_ITS | Continuity of Care Document ---
Author Organization [facility] Address [address],[facility] [address] [place] [address] Care Team Providers Care Production Line Technician Name Role Phone ISABEL RAMSEY Primary Care Provider [phone] ANDREAS HERNANDEZ Referring Provider Assessment Encounter Date Assessment Date Assessment LastModified by Organization Details LastModified Time 02/10/2025 02/10/2025 Yojana Reece is a 49 year old right handed woman with neck [...] proceed She can follow up as needed [email or web address] Not available 02/10/2025 10:05:07 Plan of Treatment Reminders Order Date Submit Date Provider Last Modified By Organization Details Last Modified Time Details Appointments PROCEDURE 2025 09:30A M Carter carey MD Not available Not available Not available PROCEDURE 2025 09:30A M Carter carey MD Not available Not available Not available Lab None recorded. Referral None recorded. Procedures None recorded. Surgeries None recorded. Imaging None recorded. Medication Orders None recorded. Patient TargetsNo targets recorded. Patient Instructions Encounter Date Encounter Id Patient Instructions Last Modified By Organization Details Last Modified Time 02/10/2025 [id number] She was advised against bed rest lasting longer than four days and to continue activities as tolerated. [email or web address] Not available 02/10/2025 10:04:10 Reason for Referral None Reported. Procedures Surgical History Date Name Laterality Status Provider Name and Address Organization Details Recorded Time 02/11/20 25 Trigger Point Injections under ultrasound guidance completed Carter Dominguez MD [address] , [address], [place], [address], [place] [facility] 02/10/2025 10:04:22 10/25/19 25 Trigger Point Injections under ultrasound guidance completed Carter Dominguez MD [address] , [address], [place], [address], [place] [facility] 10/24/2024 11:07:18 10/18/19 25 Trigger Point Injections under ultrasound guidance completed Carter Dominguez MD [address] , [address], [place], [address], [place] [facility] 10/17/2024 10:38:01 07/22/19 25 Trigger Point Injections under ultrasound guidance completed Carter Dominguez MD [address] , [address], [place], [address], [place] [facility] 07/22/2024 15:15:41 07/18/19 25 Trigger Point Injections under ultrasound guidance completed Carter Dominguez MD [address] , [address], [place], [address], [place] [facility] 07/18/2024 10:58:34 03/27/20 24 Trigger Point Injections under ultrasound guidance completed Carter Dominguez MD [address] , [address], [place], [address], [place] [facility] 03/27/2024 15:28:48 03/21/20 24 Trigger Point Injections under ultrasound guidance completed Carter Dominguez MD [address] , [address], [place], [address], [place] [facility] 03/22/2024 12:02:47 [...] Name and Address Organization Details Recorded Time 00804 amitripty line medicatio n Not available Not available Not available 03/18/2024 704 RxNorm suici monica ideat ion Sameera Ross null, [place] [facility] 4 14:49:23 10875 gabapenti n medicatio n nausea Not available Not available 03/18/2024 10629 RxNorm Sameera Chiuono null, [place] [facility] 4 14:49:44 54182 Topamax medicatio n Not available Not available Not available 03/18/2024 68854 3 RxNorm UTI's Sameera Ross null, [place] [facility] 4 14:50:08 Medications Name Sig Start Date Stop Date Status Note LastModified by Organization Details LastModified Time atorvastati n 10 mg tablet 2024 active Not Available Not Available Not Avai lable citalopram 10 mg tablet TAKE 1/2 TABLET BY MOUTH ONCE A DAY WITH 20 MG TABLET FOR DEPRESSIO N, ANXIETY active Not Available Not Available No [...] saturation in Arterial blood by Pulse oximetry Pain severity - 0-10 verbal numeric rating [Score] - Reported Systolic And Diastolic Provider Name and Address Organization Details Last Updated DateTime 5 162.56 cm 86 /min 95 % 95 % 5 125/77 mm[Hg] Sameera Chiuaislinn [place] [facility] 5 09:33:20 Social History Question Answer Notes LastModified by Organizat ion Details LastModified Time Tobacco Smoking Status Former Smoker Sameera Ross maliha, [place] [facility] 03/18/2024 14:10:29 [...] Or The Highest Degree You Have Received? [id number] Information not available 03/18/2024 What Is Your [...] not available 03/18/2024 Do you have difficulty dressing, bathing, grooming, or toileting? No Information not available 03/18/2024 Mental Status Question Answer Note LastModified by Organizat ion Details LastModified Time Do you feel stressed (tense, restless, nervous, or anxious, or unable to sleep at night)? [id number] Information not available 03/18/2024 Do you have [...] Neuropathy/Neuralgia Y Kidney Stones Y Hyperthyroidism N Hypothyroidism N Depression Y COPD N Hepatitis C N Migrane Y Diabetes N Anxiety Disorder Y Arthritis Y Seizures/Epilepsy N Hyperlipidemia N Cancer N Stroke N Asthma Y HIV/AIDS N Headache Y Bipolar Disorder N GERD/Reflux Y High Cholesterol N Liver Disease N Pulmonary Embolism N Fibromyalgia Y Irritable Bowel Syndrome N Hypertension N Osteoporosis N Kidney Disease N Gynecological HistoryNo gynecological history recorded. Obstetrics History GPAL:G 0 P 0 0 0 0 Past Encounters Encounter ID Performer Location Encounter Start Date Encounter Closed Date Diagnosis/Indication Diagnosis SNOMED-CT Code Diagnosis ICD10 Code Diagnosis IMO Codes Diagnosis Note [id number] Carter Dominguez MD PAIN OFFICE [address] [facility],[address] [address] 02/10/2025 09:25:48 02/10/2025 10:46:32 Muscle pain 28113834 M79.18 Degenerati on of cervical intervertebral disc 70817786 M50.[address] in cervical region 21298257 M48.02 Health Concerns Section Related Observation LastModified by Organization Detai ls LastModified Time None Recorded Concern Status LastModified by Organization Details LastModified Time None Recorded Payers Encounter Date Sequence Insurance Name Policy Number Policy Smith Covered Member ID Smith Member ID Guarantor Name 02/10/2025 1 [place] [employer] Yojanadami Reece [id number] Yojana Reece 02/10/2025 2 [place] Yoajna Reece [id number] Yojana Reece Notes Date Note Type Note Provider Name and Address Organization Details Recorded Time 02/10/2025 text/html She is here for a left rhomboid and trapezius muscle trigger point injection under ultrasound guidance Carter Dominguez MD [address] [facility] , [address], [place], [address], [facility] 02/10/2025 10:53:34 OBGyn Episode No OBEpisode recorded.
--- OUTSIDE RECORDS SUMMARY | 2025-05-02 20:57 | XMS_ITS | Clinical Summary ---
Author Organization [facility] Address [address] [place] [address] Phone Care Team Providers Care Quality Coordinator Name Role Phone Jaison Gamboa MD Primary Care Provider [phone] Allergies No known active allergies Encounters Date Type Department Care Team Description 05/01/2025 3:12 AM EST - 05/01/2025 3:13 AM EST Emergency [facility] Emergency [address] [place] [address] Chest pain, unspecified type (Primary Dx) Discharge Disposition: Home or Self Care from Last 3 Months Surgical History Surgery Date Site/Laterality Comments NECK [...] Mass Index 29.01 05/01/2025 12:04 AM EST Plan of Treatment Health Maintenance Due Date Last Done Comments Breast Cancer Screening 1973 Hepatitis B Vaccines (1 of 3 - 19+ 3-dose series) 1992 Pneumococcal Vaccine: 50+ Years (1 of 2 - PCV) 1992 Cervical Cancer Screening: Pap Smear 1994 HIV Screening 05/22/2022 Hepatitis C Screening 05/22/2022 Medicare Annual Wellness Visit 05/22/2022 Social Influencers of Health Screening 05/22/2022 Zoster Vaccines (1 of 2) 11/06/2023 Depression Screening 06/19/2024 COVID-19 Vaccine ( - season) 2025 06/08/2021, 08/21/2020, 07/31/2020 Influenza Vaccine (#1) 2025 9, 04/16/2018, 07/07/2017, Additional history exists DTaP,Tdap,and Td Vaccines (2 - Td or Tdap) 12/05/2026 12/05/2016 Colorectal Cancer Screening: FIT-DNA (Cologuard) 01/28/2028 01/27/2025 RSV Immunization Adult Patients (1 - 1-dose 75+ series) 2048 HIB Vaccines Aged Out No longer eligi [...] on patient's age to complete this topic Procedures Procedure Name Priority Date/Time Associated Diagnosis Comments XR CHEST 2 VIEWS STAT 05/01/2025 1:56 AM EST CBC WITH AUTO DIFFERENTIAL STAT 05/01/2025 12:25 AM EST B-TYPE NATRIURETIC PEPTIDE STAT 05/01/2025 12:25 AM EST MAGNESIUM STAT 05/01/2025 12:25 AM EST LIPASE STAT 05/01/2025 12:25 AM EST COMPREHENSIVE METABOLIC PANEL STAT 05/01/2025 12:25 AM EST CBC AND DIFFERENTIAL STAT 05/01/2025 12:25 AM EST TROPONIN I HIGH SENSITIVITY Timed 05/01/2025 12:25 AM EST ECG 12-LEAD STAT 05/01/2025 12:17 AM EST ECG ANNOTATED 05/01/2025 from Last 3 Months Results * XR Chest 2 Views (05/01/2025 1:56 AM EST) Anatomical Region Laterality Modality Body Radiographic Carleen ging 05/01/2025 7:48 AM EST Impressions 05/01/2025 7:48 AM EST No acute cardiopulmonary findings. -------- FINAL REPORT -------- Dictated By: Eduardo Hammer Dictated Date: 05/01/2025 07:48 ET Assigned Physician: Eduardo Hammer Reviewed and Electronically Signed By: Eduardo Hammer Signed Date: 05/01/2025 07:48 ET Workstation ID: [id number] Transcribed By: Self Edit Transcribed Date: 05/01/2025 [...] Signed Date: 05/01/2025 07:48 ET Workstation ID: [id number] Transcribed By: Self Edit Transcribed Date: 05/01/2025 07:48 ET us Addison Villaseñor MD IMG XR PROCEDURES Final R esult * Troponin I high sensitivity (05/01/2025 12:25 AM EST) High Sensitivity Troponin I 6 <=54 ng/L LAB CHEMISTRY METHOD 05/01/2025 1:25 AM EST [facility] Blood Venous blood specimen / Unknown Venipuncture / Unknown 05/01/2025 12:25 AM EST 05/01/2025 12:56 AM EST Narrative [facility] - 05/01/2025 1:25 AM EST High levels of biotin in samples may falsely decrease hsTroponin values. Use caution when interpreting hsTroponin results in patients taking biotin who exhibit renal impairment (eGFR <60) or in patients taking more than 20 mg/day of biotin. us Addison Villaseñor MD LAB BLOOD ORDERABLES Kasey ray Result [facility] [address] [place] [address], * (ABNORMAL) CBC auto differential (05/01/2025 12:25 AM EST) WBC 9.4 4.8 - 10.8 K/mcL LAB HEMETOLOGY METHOD 05/01/2025 1:01 AM [facility] RBC 4.10 3.80 - 4.80 M/mcL LAB HEMETOLOGY METHOD 05/01/2025 1:01 AM [facility] Hemoglobin 13.4 11.5 - 16.0 g/dL LAB HEMETOLOGY METHOD 05/01/2025 1:01 AM [facility] Hematocrit 39.4 35.0 - 47.0 % LAB HEMETOLOGY METHOD 05/01/2025 1:01 AM [facility] MCV 95.6 79.0 - 98.0 FL LAB HEMETOLOGY METHOD 05/01/2025 1:01 AM [facility] MCH 32.5(H) 27.0 - 32.0 pcg LAB HEMETOLOGY METHOD 05/01/2025 1:01 AM [facility] MCHC 34.0 32.0 - 37.0 g/dL LAB HEMETOLOGY METHOD 05/01/2025 1:01 AM [facility] RDW 13.7 11.0 - 15.0 % LAB HEMETOLOGY METHOD 05/01/2025 1:01 AM [facility] Platelets 260 130 - 400 K/mcL LAB HEMETOLOGY METHOD 05/01/2025 1:01 AM [facility] MPV 9.4 7.0 - 11.0 FL LAB HEMETOLOGY METHOD 05/01/2025 1:01 AM [facility] NRBC 0.0 <1.0 % LAB HEMETOLOGY METHOD 05/01/2025 1:01 AM [facility] NRBC Absolute 0.00 <0.10 K/mcL LAB HEMETOLOGY METHOD 05/01/2025 1:01 AM [facility] Neutrophils Relative 39.8 % LAB HEMETOLOGY METHOD 05/01/2025 1:01 AM [facility] Lymphocytes Relative 47.3 % LAB HEMETOLOGY METHOD 05/01/2025 1:01 AM [facility] Monocytes Relative 8.1 % LAB HEMETOLOGY METHOD 05/01/2025 1:01 AM [facility] Eosinophils Relative 4.1 % LAB HEMETOLOGY METHOD 05/01/2025 1:01 AM [facility] Basophils Relative 0.5 % LAB HEMETOLOGY METHOD 05/01/2025 1:01 AM [facility] Immature Granulocytes Relative 0.2 % LAB HEMETOLOGY METHOD 05/01/2025 1:01 AM [facility] Neutrophils Absolute 3.72 1.50 - 7.00 K/mcL LAB HEMETOLOGY METHOD 05/01/2025 1:01 AM [facility] Lymphocytes Absolute 4.42 1.00 - 5.00 K/mcL LAB HEMETOLOGY METHOD 05/01/2025 1:01 AM [facility] Monocytes Absolute 0.76 0.20 - 1.00 K/mcL LAB HEMETOLOGY METHOD 05/01/2025 1:01 AM [facility] Eosinophils Absolute 0.38 0.00 - 0.50 K/mcL LAB HEMETOLOGY METHOD 05/01/2025 1:01 AM EST [facility] Basophils Absolute 0.05 0.00 - 0.20 K/[facility] LAB HEMETOLOGY METHOD 05/01/2025 1:01 AM EST [facility] Immature Granulocytes Absolute 0.02 0.00 - 0.03 K/[facility] LAB HEMETOLOGY METHOD 05/01/2025 1:01 AM EST [facility] Blood Venous blood specimen / Unknown Venipuncture / Unknown 05/01/2025 12:25 AM EST 05/01/2025 12:56 AM EST Addison Villaseñor MD LAB BLOOD ORDERABLES Kasey l Result Performing Organization Address City/[facility]/ZIP Co de Phone Number [facility] [address] [place] [address], * B-type natriuretic peptide (05/01/2025 12:25 AM EST) BNP <2 <=100 pcg/mL LAB CHEMISTRY METHOD 05/01/2025 1:30 AM EST [facility] Blood Venous blood specimen / Unknown Venipuncture / Unknown 05/01/2025 12:25 AM EST 05/01/2025 12:56 AM EST Addison Villaseñor MD LAB BLOOD ORDERABLES Kasey l Result [facility] [address] [place] [address], [place] [phone] * Magnesium (05/01/2025 12:25 AM EST) Magnesium 1.9 1.9 - 2.6 mg/dL LAB CHEMISTRY METHOD 05/01/2025 1:22 AM EST [facility] Blood Venous blood specimen / Unknown Venipuncture / Unknown 05/01/2025 12:25 AM EST 05/01/2025 12:56 AM EST Addison Villaseñor MD LAB BLOOD ORDERABLES Kasey l Result [facility] [address] [place] [address], [place] [phone] * (ABNORMAL) Lipase (05/01/2025 12:25 AM EST) [facility] Lipase 82(H) 13 - 75 unit/L LAB CHEMISTRY METHOD 05/01/2025 1:22 AM EST [facility] Blood Venous blood specimen / Unknown Venipuncture / Unknown 05/01/2025 12:25 AM EST 05/01/2025 12:56 AM EST Addison Villaseñor MD LAB BLOOD ORDERABLES Kasey l Result Performing Organization Address City/[facility]/ZIP Co de Phone Number [facility] [address] [place] [address], [place] [phone] * (ABNORMAL) Comprehensive metabolic panel (05/01/2025 12:25 AM EST) [facility] Sodium 138 133 - 145 mmol/L LAB CHEMISTRY METHOD 05/01/2025 1:22 AM EST [facility] Potassium 3.5 3.5 - 5.5 mmol/L LAB CHEMISTRY METHOD 05/01/2025 1:22 AM EST [facility] Chloride 106 96 - 110 mmol/L LAB CHEMISTRY METHOD 05/01/2025 1:22 AM EST [facility] CO2 26 21 - 32 mmol/L LAB CHEMISTRY METHOD 05/01/2025 1:22 AM [facility] Anion Gap 6 3 - 11 LAB CHEMISTRY METHOD 05/01/2025 1:22 AM [facility] Glucose 144(H) 70 - 100 mg/dL LAB CHEMISTRY METHOD 05/01/2025 1:22 AM [facility] BUN 12 5 - 25 mg/dL LAB CHEMISTRY METHOD 05/01/2025 1:22 AM [facility] Creatinine 0.80 0.50 - 1.10 mg/dL LAB CHEMISTRY METHOD 05/01/2025 1:22 AM [facility] eGFR 89 >=60 mL/min/1. 73m2 LAB CHEMISTRY METHOD 05/01/2025 1:22 AM [facility] Comment:Calculation based on the Chronic Kidney Disease Epidemiology Collaboration (CKD-EPI) equation refit without adjustment for race. BUN/Creatinine Ratio 15.0 LAB CHEMISTRY METHOD 05/01/2025 1:22 AM [facility] Calcium 8.9 8.5 - 10.5 mg/dL LAB CHEMISTRY METHOD 05/01/2025 1:22 AM [facility] AST (SGOT) 18 10 - 42 unit/L LAB CHEMISTRY METHOD 05/01/2025 1:22 AM [facility] ALT (SGPT) 31 10 - 60 unit/L LAB CHEMISTRY METHOD 05/01/2025 1:22 AM [facility] Alkaline Phosphatase 100 42 - 121 unit/L LAB CHEMISTRY METHOD 05/01/2025 1:22 AM [facility] Total Protein 6.7 6.0 - 8.0 g/dL LAB CHEMISTRY METHOD 05/01/2025 1:22 AM [facility] Albumin 3.9 3.2 - 5.0 g/dL LAB CHEMISTRY METHOD 05/01/2025 1:22 AM [facility] Total Bilirubin 0.3 0.0 - 1.4 mg/dL LAB CHEMISTRY METHOD 05/01/2025 1:22 AM [facility] Blood Venous blood specimen / Unknown Venipuncture / Unknown 05/01/2025 12:25 AM EST 05/01/2025 12:56 AM EST us Addison Villaseñor MD LAB BLOOD ORDERABLES Kasey l Result [facility] [address] [place] [address], * ECG 12 lead (05/01/2025 12:17 AM EST) Ventricular Rate ECG 88 BPM GEMUSE Atrial Rate 88 BPM GEMUSE P-R Interval 130 ms GEMUSE QRS Duration 82 ms GEMUSE Q-T Interval 398 ms GEMUSE QTc 481 ms GEMUSE P Wave Cost 77 degrees GEMUSE R Cost 70 degrees GEMUSE T Cost 74 degrees GEMUSE ECG Interpretation Normal sinus rhythm Nonspecific ST abnormality Abnormal ECG No previous ECGs available Confirmed by GUANAKO BURROUGHS ([id number]) on 05/01/2025 9:26:01 PM GEMUSE 05/01/2025 12:1 7 AM EST 05/01/2025 9:26 PM EST Addison Villaseñor MD ECG ORDERABLES Final Res ult GEMUSE * ECG-Annotated (05/01/2025) Provider Onbase ECG ORDERABLES Final Result from Last 3 Months Insurance MEDICARE MEDICAID - [place] Care Teams Quality Coordinator Relationship Specialty Start Date End Date Jaison Gamboa MD [address] [place] [address] [place] [id number] PCP - General Internal Medicine 07/13/21
--- OUTSIDE RECORDS SUMMARY | 2025-05-02 20:57 | XMS_ITS | Data Portability ---
Author Organization [facility] Address [address] [facility] [address] [place] [address] Care Team Providers Care Client Partner Name Role Phone ISABEL RAMSEY Primary Care Provider [phone] ANDREAS HERNANDEZ Referring Provider Assessment Encounter Date Assessment Date Assessment LastModified by Organization Details LastModified Time 07/18/2024 07/18/2024 Yojana Reece is a 48 [...] She can follow up for right TPI [email or web address] Not available 07/18/2024 11:00:08 07/22/2024 07/22/2024 Yojana [...] proceed She can follow up as needed [email or web address] Not available 07/22/2024 15:29:21 10/17/2024 10/17/2024 Yojana [...] as needed sveta Not available 10/24/2024 11:14:07 02/10/2025 02/10/2025 Yojana Reece is a 49 [...] follow up as needed sveta Not available 02/10/2025 10:05:07 Plan of Treatment Reminders Order Date Submit Date Provider Last Modified By Organization Details Last Modified Time Details Appointments PROCEDURE 2025 09:30A M Carter carey MD Not available Not available Not available PROCEDURE 2025 09:30A M Catrer carey MD Not available Not available Not available Lab None recorded. Referral None recorded. Procedures None recorded. Surgeries None recorded. Imaging None recorded. Medication Orders None recorded. Patient TargetsNo targets recorded. Patient Instructions Encounter Date Encounter Id Patient Instructions Last Modified By Organization Details Last Modified Time 07/18/2024 [id number] She was advised against bed rest lasting longer than four days and to continue activities as tolerated. [email or web address] Not available 07/18/2024 10:58:25 07/22/2024 [id number] She was advised against bed rest lasting longer than four days and to continue activities as tolerated. [email or web address] Not available 07/22/2024 15:15:13 10/17/2024 [id number] She was advised against bed rest lasting longer than four days and to continue activities as tolerated. [email or web address] Not available 10/17/2024 10:37:09 10/24/2024 [id number] She was advised against bed rest lasting longer than four days and to continue activities as tolerated. [email or web address] Not available 10/24/2024 11:07:09 02/10/2025 [id number] She was advised against bed rest lasting longer than four days and to continue activities as tolerated. [email or web address] Not available 02/10/2025 10:04:10 Reason for Referral None Reported. Procedures Surgical History Date Name Laterality Status Provider Name and Address Organization Details Recorded Time 02/11/20 25 Trigger Point Injections under ultrasound guidance completed Carter Dominguez MD [address] [facility] , [address], [place], [address], [place] [facility] 02/10/2025 10:04:22 10/25/19 25 Trigger Point Injections under ultrasound guidance completed Carter Dominguez MD [address] [facility] , [address], [place], [address], [place] [facility] 10/24/2024 11:07:18 10/18/19 25 Trigger Point Injections under ultrasound guidance completed Carter Dominguez MD [email or web address] [facility] , [address], [place], [address], [place] [facility] 10/17/2024 10:38:01 07/22/19 25 Trigger Point Injections under ultrasound guidance completed Carter Dominguez MD [address] , [address], [place], [address], [place] [facility] 07/22/2024 15:15:41 07/18/19 25 Trigger Point Injections under ultrasound guidance completed Carter Dominguez MD [address] [facility] , [address], [place], [address], [place] [facility] 07/18/2024 10:58:34 03/27/20 24 Trigger Point Injections under ultrasound guidance completed Carter Dominguez MD [address] [facility] , [address], [place], [address], [place] [facility] 03/27/2024 15:28:48 03/21/20 24 Trigger Point Injections under ultrasound guidance completed Carter Dominguez MD [address] , [address], [place], [address], [place] [facility] 03/22/2024 12:02:47 06/19/19 24 transposition of ulnar nerve at elbow completed Sameeraluis fernando Saeedbuono [place] [facility] 03/18/2024 14:14:58 06/19/19 23 primary anterior decompression of cervical spinal cord completed Sameera Delbuono [place] [facility] 03/04/2024 10:47:27 06/19/19 23 transposition of ulnar nerve at wrist completed Sameera Saeedbuono [place] [facility] 03/18/2024 14:14:38 Imaging Results None recorded. Procedure Notes None recorded. Medical Equipment None Reported. Allergies Allergen ID Allergen Name Allergen Category Reaction Reaction Severity Criticality Documentation Date Start Date Code Code System Note Provider Name and Address Organization Details Recorded Time 28274 amitripty line medicatio n Not available Not available Not available 03/18/2024 704 RxNorm suici monica ideat ion Sameera Delbuono null, [place] [facility] 4 14:49:23 39716 gabapenti n medicatio n nausea Not available Not available 03/18/2024 25746 RxNorm Sameera Delbuono null, [place] [facility] 4 14:49:44 12458 Topamax medicatio n Not available Not available Not available 03/18/2024 21547 3 RxNorm UTI's Sameera Delbuono null, [place] [facility] 4 [...] 97 % 97 % 112/78 mm[Hg] Akilah blank MD - [facility] 5 09:49:01 Date Recorded Body height Pain severity - 0-10 verbal numeric rating [Score] - Reported Heart rate Oxygen saturation Oxygen saturation in Arterial blood by Pulse oximetry Systolic And Diastolic Provider Name and Address Organization Details Last Updated DateTime 5 162.56 cm 7 87 /min 98 % 98 % 125/82 mm[Hg] Sameera Ross MD - [facility] 5 14:37:32 Date Recorded Body height Heart rate Oxygen saturation Oxygen saturation in Arterial blood by Pulse oximetry Pain severity - 0-10 verbal numeric rating [Score] - Reported Systolic And Diastolic Provider Name and Address Organization Details Last Updated DateTime 5 162.56 cm 90 /min 97 % 97 % 6 114/73 mm[Hg] Akilah blank MD - [facility] 5 09:37:08 Date Recorded Body height Pain severity - 0-10 verbal numeric rating [Score] - Reported Oxygen saturation Oxygen saturation in Arterial blood by Pulse oximetry Heart rate Systolic And Diastolic Provider Name and Address Organization Details Last Updated DateTime 5 162.56 cm 6 96 % 96 % 83 /min 134/81 mm[Hg] Akilah blank [place] [facility] 5 09:40:50 Date Recorded Body height Heart rate Oxygen saturation Oxygen saturation in Arterial blood by Pulse oximetry Pain severity - 0-10 verbal numeric rating [Score] - Reported Systolic And Diastolic Provider Name and Address Organization Details Last Updated DateTime 5 162.56 cm 86 /min 95 % 95 % 5 125/77 mm[Hg] Sameera Vandana [facility] 5 09:33:20 Social History Question Answer Notes LastModified by Organizat ion Details LastModified Time Tobacco Smoking Status Former Smoker Sameera jett, [place] [facility] 03/18/2024 14:10:29 [...] Or The Highest Degree You Have Received? [id number] Information not available 03/18/2024 What Is Your [...] anxious, or unable to sleep at night)? IZ09530-7 Information not available 03/18/2024 Do you have [...] ICD10 Code Diagnosis IMO Codes Diagnosis Note [id number] Carter Dominguez MD PAIN OFFICE [address] [employer] [facility] [place] [address] 03/18/2024 13:52:53 03/18/2024 16:18:42 Muscle pain 70335677 M79.18 Degenerati on of cervical intervertebral disc 76842632 M50.30 [address] thor nosis in cervical region 82162769 M48.02 10787 Carter Dominguez MD PAIN OFFICE [address] [facility] [place] [address] 03/21/2024 10:48:04 03/22/2024 12:09:59 Muscle pain 06720755 M79.18 Degenerati on of cervical intervertebral disc 51384653 M50.30 Spinal thor nosis in cervical region 96285485 M48.02 68862 Carter Dominguez MD PAIN OFFICE [address] [facility] [place] [address] 03/27/2024 14:51:39 03/27/2024 16:19:39 Muscle pain 68252096 M79.18 Degenerati on of cervical intervertebral disc 21836779 M50.30 Spinal thor nosis in cervical region 90633725 M48.02 67432 Carter Dominguez MD PAIN OFFICE [address] [facility] [place] [address] 04/22/2024 13:20:26 04/22/2024 16:47:32 Muscle pain 70551848 M79.18 Degenerati on of cervical intervertebral disc 68721759 M50.30 Spinal thor nosis in cervical region 04850049 M48.02 66206 Carter Dominguez MD PAIN OFFICE [address] [facility] [place] [address] 07/18/2024 09:48:16 07/18/2024 11:02:09 Muscle pain 94864177 M79.18 Degenerati on of cervical intervertebral disc 07486988 M50.30 Spinal thor nosis in cervical region 82301850 M48.02 34295 Carter Dominguez MD PAIN OFFICE [address] [place] [address] 07/22/2024 14:29:49 07/22/2024 15:30:43 Muscle pain 38220248 M79.18 Degenerati on of cervical intervertebral disc 28198884 M50.30 Spinal thor nosis in cervical region 19746936 M48.02 85882 Carter Dominguez MD PAIN OFFICE [address] [place] [address] 10/17/2024 09:31:33 10/17/2024 11:04:02 Muscle pain 53186540 M79.18 Degenerati on of cervical intervertebral disc 84763055 M50.30 Spinal thor nosis in cervical region 63417645 M48.02 04734 Carter Dominguez MD PAIN OFFICE [address] [place] [address] 10/24/2024 09:34:12 10/24/2024 11:37:26 Muscle pain 19410198 M79.18 Degenerati on of cervical intervertebral disc 37586870 M50.30 Spinal thor nosis in cervical region 03438734 M48.02 45636 Carter Dominguez MD [facility] [address] [place] [address] 02/10/2025 09:25:48 02/10/2025 10:46:32 Muscle pain 91332506 M79.18 Degenerati on of cervical intervertebral disc 80411861 M50.30 Spinal thor nosis in cervical region 19573316 M48.02 Health Concerns Section Related Observation LastModified by Organization Detai ls LastModified Time None Recorded Concern Status LastModified by Organization Details LastModified Time None Recorded Advance Directives Directive N: Payers Insurance Date Sequence Insurance Name Policy Number Policy Smith Covered Member ID Smith Member ID Guarantor Name 02/10/2025 1 [facility] - HEALTH NET PLAN (MEDICAID HMO) MARCELO Reece [id number] Yojana Reece 02/10/2025 1 [place] [employer] Yojana Reece [id number] Yojana Reece 02/10/2025 2 [place] [facility] Yojana Reece [id number] Yojana Reece Notes Date Note Type Note Provider Name and Address Organization Details Recorded Time 07/18/2024 text/html She is here for a left rhomboid and trapezius muscle trigger point injection under ultrasound guidance Carter Dominguez MD [address] , [address], [place], [address], [place] [facility] 07/18/2024 14:23:34 07/22/2024 text/html She is here for a trial of trigger point injection in right trapezius muscle under ultrasound guidance She is here for a trigger point injection in right rhomboid muscle under ultrasound guidance Carter Dominguez MD [email or web address] , [address], [place], [address], [place] [facility] 07/22/2024 15:31:42 10/17/2024 text/html She is here for a trigger point injection in right rhomboid and trapezius muscle under ultrasound guidance Carter Dominguez MD [email or web address] , [address], [place], [address], [place] [facility] 10/17/2024 11:08:31 10/24/2024 text/html She is here for a left rhomboid and trapezius muscle trigger point injection under ultrasound guidance Carter Dominguez MD [address] , [address], [place], [address], [place] [facility] 10/25/2024 10:28:40 02/10/2025 text/html She is here for a left rhomboid and trapezius muscle trigger point injection under ultrasound guidance Carter Dominguez MD [address] , [address], [place], [address], [place] [facility] 02/10/2025 10:53:34 OBGyn Episode No OBEpisode recorded.
[2025-05-03 05:53] LABS: Thyroglobulin Antibodies <1 IU/mL (< or = 1)
[2025-05-05 08:53] LABS: DNAds, Crithidia Antibody Negative (Negative)
[2025-05-05 22:08] LABS: Antibody to SS-A Antigen <1.0 NEG AI (<1.0 NEG); Antibody to SS-B Antigen <1.0 NEG AI (<1.0 NEG); SM/Ribonucleoprotein Ab <1.0 NEG AI (<1.0 NEG); Smith Protein <1.0 NEG AI (<1.0 NEG)
== END 2025-05-02 13:05 | disposition home or self-care (01) ==
LOC: HO.HKASLDS 13:04
PROVIDERS: Visit Provider Student in an Organized Health Care Education/Training Program
DX: M79.7 Fibromyalgia (principal); M13.0 Polyarthritis, unspecified; R76.89 Other specified abnormal immunological findings in serum; R76.0 Raised antibody titer; R20.0 Anesthesia of skin; M35.9 Systemic involvement of connective tissue, unspecified
CPT/HCPCS: 36415; 83516; 85025; 85652; 86140; 86160; 86225; 86235; 86255; 86376; 86800; 99212

== ENCOUNTER 2025-05-02 13:04 | Outpatient (AMB) | payer MEDICARE, MEDICAID, SELFPAY ==
--- NOTE | 2025-05-02 13:07 | A.OFFVIS_ITS ---
Vital Signs 05/02/25 13:13 Height 5 ft 4 in Weight 174 lb 2.643 oz BMI 29.9 BP 124/80 Blood Pressure Location Lt brachial Position Sitting Pulse 77 Pulse Source Pulse Oximeter Pulse Oximetry (%) 99 Oxygen Delivery Method Room Air Intake Visit Reasons: KRISTEN+ Intake Note: Patient presents for KRISTEN+ follow up. Allergies amitriptyline Allergy (Intermediate, Verified 05/02/25 13:12) lethargic pregabalin (From Lyrica) Adverse Reaction (Intermediate, Verified 05/02/25 13:12) Fatigued gabapentin Adverse Reaction (Intermediate, Uncoded 12/17/24 15:13) Nausea Medication List - Last Reconciled 05/02/25 by Anat Garcia MD albuterol sulfate 90 mcg/actuation 2 puffs inhalation Q4-6H PRN 30 days citalopram (Celexa) 20 mg PO DAILY hydroxyzine HCl 10 mg PO BID PRN lorazepam 1 mg (2 x 0.5 mg) PO BID PRN ondansetron 4 mg PO DAILY PRN 30 days HPI Comments Details: Patient is a 49-year-old female with asthma, depression, cervical osteoarthritis and fibromyalgia here today for follow up Interval History: Patient last seen 03/19/[address] Long - Not on rheum meds - Last rheum appt 11/[address] Wright - Patient had cervical spine surgery in 2022. And has continued to have pain in her neck, mid back shooting into her upper back. Generalized fatigue and soreness with activity. - She denies any swollen joints. Denies any skin rashes. Denies any fevers or weight loss. Denies any symptoms suggestive of Raynaud's. Denies any history of DVT/PE. - Patient has no relationship with her mother and her mother's side of the family. She is unaware of any family history of an autoimmune rheumatic disease. - Has history of anxiety and follows up regularly with a psychotherapist once weekly and will be seeing a psychiatrist soon. Her sleep is broken - Diagnosed with fibromyalgia and conservative management recommended Today - Not on rheum meds - patient is concerned that she has an autoimmune disease because her repeat KRISTEN came back higher and the lab report noted that she may have scleroderma or Sjogren's - Denies rashes, photosensitivity, alopecia, oral/nasal ulcers, sicca symptoms, lymphadenopathy, chest pain/shortness of breath, foamy urine, lower extremity edema, muscle weakness, Raynaud's - Also denies history of seizure, CVA, psychosis, history of kidney problems, history of cytopenias, history of VTE including PE or DVTs - +1. No history of preeclampsia or placental insufficiency - states that she gets neck pain and radiates down to her left upper arm sometimes the pain we will need under her left breast which has her concern for cardiac origins given her significant family history of cardiac disease. - no known family history of autoimmune disease. Mom with osteoarthritis - no known history of thyroid disease - very tearful during the appointment because of whole-body pain sometimes not able to get out of bed. - Has tried gabapentin, lyrica, amitriptyline, flexeril with no effects Rheumatologic History: Initial history by Dr. Wright: The patient presents for evaluation of multiple areas of pain. These have included the neck, left arm, right arm, right leg, and ankles. There is numbness around the left 4th 5th fingers in the left hand. Symptoms started in the right arm and neck back in 2014. This apparently eventually was treated with a corticosteroid injection the neck with some benefit. The left arm started to bother her similarly in 2018. She did receive a spinal injection at [facility] that helped the left arm and neck pain back in 2019. She has also been seen at [facility]. She received a left lateral epicondyle and left carpal tunnel injection earlier this year. Those helped to some degree the elbow pains. She recently had nerve conduction studies done at [facility]. She takes occasional acetaminophen for her symptoms. In the past ibuprofen did seem to help her but caused epigastric pain. She has been out of work for number of months. Initially she went to part-time. She had trouble getting dressed because of the arm pain and has anxiety issues as well. She does take lorazepam once a day if needed. Current Rheumatology Medication(s): [facility] Medical History KRISTEN positive Fibromyalgia Cervical osteoarthritis Ulnar neuropathy at elbow of left upper extremity Pain in left arm Surgical History History of section Family History Mother Lung cancer Heart disease Social History Housing: Apartment Alcohol intake: never Patient Tobacco Use Status: Current everyday Tobacco user Tobacco use type: Cigarette Cigarette Packs Per Day: 0.5 Cigarettes Per Day: 8 e-Cigarette/Vaping Use: Never Used Second Hand Smoke Exposure: Yes service: No Current occupational status: unemployed Cognitive needs: No Hearing needs: No Vision needs: Yes (glasses) Review of Systems Narrative Review of Systems Constitutional: Denies fever, chills, weight loss ENT: Denies vision changes, eye pain or eye redness, dental caries, dry mouth GI: Denies nausea, vomiting, diarrhea, abdominal pain, change in BM Pulm: Denies SOB, HUERTA, hemoptysis, wheezing Cards: Denies chest pain, palpitations Skin: Denies Raynaud's, rash, nail changes, photosensitivity, ANATOMIC PATHOLOGY ASSISTANT: Denies headaches, weakness, paresthesias, recurrent falls MSK: as per HPI All other systems reviewed and are unremarkable except noted above Physical Exam Exam Exam: Vital signs reviewed Physical Examination CONSTITUITIONAL Patient alert and cooperative. Well appearing and in no apparent painful distress Tearful MSK Hands * Right Hand: Able to make a fist. No swelling or tenderness to palpation of the MCPs, PIPs or DIPs. * Left Hand: Able to make a fist. No swelling. Scattered tenderness to several areas including the 5th MCP, 5th PIP, 3rd MCP and 2nd MCP. But also noting tenderness to palpation of the dorsum of the hand which when asked is more tender than the actual joint proper Wrists * Right Wrist: Full ROM to flexion and extension. No swelling or TTP * Left Wrist: Full ROM to flexion and extension. No swelling. TTP Elbows * Right Elbow: Full ROM. No swelling or TTP. No TTP of the medial epicondyle. No TTP of the lateral epicondyle * Left Elbow: Full ROM. No swelling or TTP. No TTP of the medial epicondyle. TTP of the lateral epicondyle. Surgical scar noted for previous cubital tunnel release surgery Shoulders * Right shoulder: No swelling noted. No TTP of the AC joint. No TTP of the subacromial bursa. No TTP of the posterior shoulder * Left shoulder: No swelling noted. No TTP of the AC joint. No TTP of the subacromial bursa. No TTP of the posterior shoulder Hip bursa: TTP on the right Knees * Right knee: Full ROM. No swelling noted. No TTP of the knee joint line. No TTP of pes anserine bursa * Left knee: Full ROM. No swelling noted. TTP of the knee joint line. No TTP of pes anserine bursa. Ankles * Right ankle: Good ankle dorsiflexion and plantar flexion. No swelling. No TTP of the ankle joint * Left ankle: Good ankle dorsiflexion and plantar flexion. No swelling. No TTP of the ankle joint Feet * Right foot: Negative squeeze test * Left foot: Negative squeeze test Tender points? * No tenderness to palpation of the bilateral trapezius, supraspinatus, anterior costochondral junctions, bilateral suboccipital muscle insertions SKIN No rashes Vital Signs: BMI result Body Mass Index 29.9 Results Reviewed Results Reviewed: Laboratory Tests 12/27/24 09:29 WBC 8.8 RBC 4.55 Hgb 14.6 Hct 43.1 Plt Count 247 Sodium 141 Potassium 3.9 Chloride 108 Carbon Dioxide 25 BUN 11 Creatinine 0.73 AST 23 ALT 25 25-OH Vitamin D Total 27.1 L Laboratory Tests 12/27/24 09:29 Cycl Citrul Peptide IgG <16 KRISTEN Screen POSITIVE A KRISTEN Titer 1:1280 H KRISTEN Pattern Nuclear, Nucleolar A Assessment & Plan Assessment & Plan (1) Fibromyalgia: Code(s): M79.7 - Fibromyalgia Category: Medical Plan: #Fibromyalgia Patient is a 59-year-old female here today for evaluation of chronic polyarticular joint pain and myalgias. Her history and exam is consistent with fibromyalgia. I will say that her left upper extremity complaints sound neuropathic and this will warrant further evaluation with EMG. We will also check x-rays I have it is likely that she has osteoarthritis. She did have some evidence of osteoarthritis in earlier x-rays. At a very long discussion with the patient about her diagnosis and the positive KRISTEN. All questions answered Plan - Check EMG - Check XRs: Hands, knees and shoulders - Check Labs - RTC 4 weeks (2) KRISTEN positive: Comment: 10/2021:1:320, nucleolar pattern 1: 40 DFS Code(s): R76.8 - Other specified abnormal immunological findings in serum Category: Medical Plan: #Positive KRISTEN The presence of antinuclear antibodies (KRISTEN) is mainly associated with connective tissue diseases (CTD). However, their presence is found in healthy people especially in women and patients >65. In healthy individuals, the frequency of KRISTEN has been shown to be 31.7% of individuals at 1:40 serum dilution, 13.3% at 1:80, 5.0% at 1:160, and 3.3% at 1:320 (2). Some drugs and xenobiotics are also important for the development of KRISTEN (hydralazine, hydrochlorothiazide, minocycline, terbinafine, ciprofloxacin, furosemide, omeprazole). Moreover, the deficiency of vitamin D in the body of patients correlates with occurrence of these antibodies (1). At this time there is low suspicion for a connective tissue disease, but given her high titer we will check blood work 1. Peng?trixie Regalado, Naya Seth, Moni Song. Antinuclear antibodies in healthy people and non-rheumatic diseases - diagnostic and clinical implications. Reumatologia. 2018;56(4):243-248. doi: 10.5114/reum.2018.81896. Epub 2017Feb 16. PMID: [id number]; PMCID: [id number]. 2. Lang EM, Vishal TE, Antony JS, Harvey B, Stephanie R, Lorena MJ, Jonatan T, Suman JA, Kevin JR, René RG, Daniele RN, Ngozi JS, Selma NF, Kerline RJ, Claudia Y, Brianda A, Maykel HARDWICK, Wojciech CAR. Range of antinuclear antibodies in h ealthy individuals. Arthritis Rheum. 1996;40(9):1601-11. doi: 10.1002/art.5951535766. PMID: 6136394. Plan This is my 1st visit with the patient. I spent 45 minutes reviewing the record and labs, taking a history, examining the patient, discussing the treatment plan, Counselling patient including explainging the diagnosis of fibromyalgia, ordering diagnostic work up and documenting in the medical record Orders: Orders Complete Blood Count Auto Diff Today R76.0 - Raised antibody titer C Reactive Protein Today R76.0 - Raised antibody titer Erythrocyte Sedimentation Rate Today R76.0 - Raised antibody titer Complement C3 Today R76.0 - Raised antibody titer Anti DNA DS Antibody Today R76.0 - Raised antibody titer Sm Sm/ASSOCIATE DIRECTOR OF DEVELOPMENT Antibodies Today R76.0 - Raised antibody titer Scleroderma 70 Antibody Today R76.0 - Raised antibody titer UA ClnCatch+Micro w/rflx Cult Today R76.0 - Raised antibody titer XR shoulder LT min 2V Today M25.50 - Pain in unspecified joint XR knee RT 3V Today M25.50 - Pain in unspecified joint NE electromyogram (EMG) Today R20.0 - Anesthesia of skin Complement C4 Today R76.0 - Raised antibody titer Histone Antibody Today R76.0 - Raised antibody titer DNA Double Stranded-Crithidia Today R76.0 - Raised antibody titer Sjogren's Antibodies Today R76.0 - Raised antibody titer Thyroglobulin Antibodies Today R76.0 - Raised antibody titer Thyroid Peroxidase Antibodies Today R76.0 - Raised antibody titer Protein Creatinine Ratio, Ur Today R76.0 - Raised antibody titer XR hand LT min 3V Today M25.50 - Pain in unspecified joint XR hand RT min 3V Today M25.50 - Pain in unspecified joint XR knee LT 3V Today M25.50 - Pain in unspecified joint NE nerve conduction velocity Today R20.0 - Anesthesia of skin Coding Level of Care Code Est Pt Level 5 (74552) Complex EM visit Add On G2211 Diagnoses Fibromyalgia M79.7 KRISTEN positive R76.8
[2025-05-02 13:13] VITALS: BP 124/80; PULSE 77; O2SAT 99; BMI 29.9
== END 2025-05-02 14:03 | disposition home or self-care (01) ==
LOC: HO.RHES 13:05
PROVIDERS: Visit Provider Student in an Organized Health Care Education/Training Program
DX: M79.7 Fibromyalgia (principal); R76.89 Other specified abnormal immunological findings in serum
CPT/HCPCS: 99215; G2211

== ENCOUNTER 2025-05-22 10:29 | Outpatient (REF) | payer MEDICARE, MEDICAID, SELFPAY ==
--- NOTE | ~2025-05-22 | XR_ITS ---
EXAMINATION: XR SHOULDER, LEFT CLINICAL INFORMATION: M25.50 - Pain in unspecified joint COMPARISON: None available. TECHNIQUE: AP external rotation, Grashey, scapular Y, and axillary views of the left shoulder. FINDINGS: Amorphous calcific densities are visible anterior to the anatomic neck of the humerus on the axillary view. Calcifications project over the greater tuberosity on the AP views. On the lateral view, the calcifications are present along the cephalad margin of the humeral head and greater tuberosity. There are no degenerative changes and no dislocation. XR/XR shoulder LT min 2V IMPRESSION: Calcific tendinitis possibly involving anterior supraspinatus tendon or subscapularis. Electronically signed by: Holger Nelson MD 05/22/2025 11:17 AM [facility]
--- NOTE | ~2025-05-22 | XR_ITS ---
EXAMINATION: XR KNEE, BILATERAL CLINICAL INFORMATION: M25.50 - Pain in unspecified joint COMPARISON: March 30, 2013 November 11, 2021 TECHNIQUE: AP lateral and sunrise views both knees. FINDINGS: No acute fracture or dislocation. Mild joint involving the medial compartment of the knees. No gross suprapatellar bursa joint effusion. No lytic or blastic lesions. No soft tissue calcifications. XR/XR Knee Domenic 3V IMPRESSION: Medial compartment osteoarthrosis/osteoarthritis, mild, bilaterally. Overall no gross change. Electronically signed by: Devan Holland MD 05/22/2025 11:18 AM [facility]
--- NOTE | ~2025-05-22 | XR_ITS ---
EXAMINATION: XR HAND 3 VIEWS BILATERAL HISTORY: M25.50 - Pain in unspecified joint COMPARISON: Comparison is made with the prior examination dated 07/20/2022. FINDINGS: Six views of the bilateral hands are submitted. Osseous mineralization is normal. There is no fracture or dislocation. The joint spaces are preserved. The soft tissues are unremarkable. XR/XR Hand Bilat min 3v IMPRESSION: Unremarkable examination of the bilateral hands. Electronically signed by: Víctor Cotto MD 05/22/2025 11:16 AM [facility]
[2025-05-22 11:48] LABS: Appearance Urine Clear; Glucose Urine UA Negative (Negative); PH 5.5 (5.0-9.0); Specific Gravity - Urine 1.025 (1.005-1.025)
[2025-05-22 12:22] LABS: Protein/Creatinine Ratio, Ur 0.06 (<0.2); Total Protein Urine Random 13 mg/dL (<12)
--- OUTSIDE RECORDS SUMMARY | 2025-05-22 12:58 | XMS_ITS | Clinical Summary ---
Author Organization [facility] Address [address] [place] [address] Phone Care Team Providers Care Air Twister Winder Name Role Phone Jaison Gamboa MD Primary Care Provider Allergies No known active allergies Encounters Date Type Department Care Team Description 05/01/2025 3:12 AM EST - 05/01/2025 3:13 AM EST Emergency [facility] Emergency [address] [place] [address] Chest pain, unspecified type (Primary [...] Signed Date: 05/01/2025 07:48 ET Workstation ID: [id number] Transcribed By: Self Edit Transcribed Date: 05/01/2025 [...] Signed Date: 05/01/2025 07:48 ET Workstation ID: [id number] Transcribed By: Self Edit Transcribed Date: 05/01/2025 07:48 ET us Addison Villaseñor MD IMG XR PROCEDURES Final R esult * Troponin I high sensitivity (05/01/2025 12:25 AM EST) High Sensitivity Troponin I 6 <=54 ng/L LAB CHEMISTRY METHOD 05/01/2025 1:25 AM EST [facility] Blood Venous blood specimen / Unknown Venipuncture / Unknown 05/01/2025 12:25 AM EST 05/01/2025 12:56 AM EST Narrative [facility] - 05/01/2025 1:25 AM EST High levels of biotin in samples may falsely decrease hsTroponin values. Use caution when interpreting hsTroponin results in patients taking biotin who exhibit renal impairment (eGFR <60) or in patients taking more than 20 mg/day of biotin. us Addison Villaseñor MD LAB BLOOD ORDERABLES Kasey ray Result [facility] [address] [place] [address], * (ABNORMAL) CBC auto differential (05/01/2025 12:25 [...] 1:01 AM [facility] Lymphocytes Absolute 4.42 1.00 - 5.00 K/mcL LAB HEMETOLOGY METHOD 05/01/2025 1:01 AM [facility] Monocytes Absolute 0.76 0.20 - 1.00 K/mcL LAB HEMETOLOGY METHOD 05/01/2025 1:01 AM [facility] Eosinophils Absolute 0.38 0.00 - 0.50 K/mcL LAB HEMETOLOGY METHOD 05/01/2025 1:01 AM EST [facility] Basophils Absolute 0.05 0.00 - 0.20 K/[facility] LAB HEMETOLOGY METHOD 05/01/2025 1:01 AM EST [facility] Immature Granulocytes Absolute 0.02 0.00 - 0.03 K/[facility] LAB HEMETOLOGY METHOD 05/01/2025 1:01 AM EST [facility] Blood Venous blood specimen / Unknown Venipuncture / Unknown 05/01/2025 12:25 AM EST 05/01/2025 12:56 AM EST Addison Villaseñor MD LAB BLOOD ORDERABLES Kasey l Result Performing Organization Address City/[facility]/ZIP Co de Phone Number [facility] [address] [place] [address], * B-type natriuretic peptide (05/01/2025 12:25 AM EST) BNP <2 <=100 pcg/mL LAB CHEMISTRY METHOD 05/01/2025 1:30 AM EST [facility] Blood Venous blood specimen / Unknown Venipuncture / Unknown 05/01/2025 12:25 AM EST 05/01/2025 12:56 AM EST Addison Villaseñor MD LAB BLOOD ORDERABLES Kasey l Result [facility] [address] [place] [address], [place] [phone] * Magnesium (05/01/2025 12:25 AM EST) Magnesium 1.9 1.9 - 2.6 mg/dL LAB CHEMISTRY METHOD 05/01/2025 1:22 AM EST [facility] Blood Venous blood specimen / Unknown Venipuncture / Unknown 05/01/2025 12:25 AM EST 05/01/2025 12:56 AM EST Addison Villaseñor MD LAB BLOOD ORDERABLES Kasey l Result [facility] [address] [place] [address], [place] [phone] * (ABNORMAL) Lipase (05/01/2025 12:25 AM EST) [facility] Lipase 82(H) 13 - 75 unit/L LAB CHEMISTRY METHOD 05/01/2025 1:22 AM EST [facility] Blood Venous blood specimen / Unknown Venipuncture / Unknown 05/01/2025 12:25 AM EST 05/01/2025 12:56 AM EST Addison Villaseñor MD LAB BLOOD ORDERABLES Kasey l Result Performing Organization Address City/[facility]/ZIP Co de Phone Number [facility] [address] [place] [address], [place] [phone] * (ABNORMAL) Comprehensive metabolic panel (05/01/2025 12:25 AM EST) [facility] Sodium 138 133 - 145 mmol/L LAB CHEMISTRY METHOD 05/01/2025 1:22 AM EST [facility] Potassium 3.5 3.5 - 5.5 mmol/L LAB CHEMISTRY METHOD 05/01/2025 1:22 AM EST [facility] Chloride 106 96 - 110 mmol/L LAB CHEMISTRY METHOD 05/01/2025 1:22 AM EST [facility] CO2 26 21 - 32 [...] LAB BLOOD ORDERABLES Kasey l Result [facility] [address] [place] [address], * ECG 12 lead (05/01/2025 12:17 AM EST) Ventricular Rate ECG 88 BPM GEMUSE Atrial Rate 88 BPM GEMUSE P-R Interval 130 ms GEMUSE QRS Duration 82 ms GEMUSE Q-T Interval 398 ms GEMUSE QTc 481 ms GEMUSE P Wave [place] 77 degrees GEMUSE R [place] 70 degrees GEMUSE T [place] 74 degrees GEMUSE ECG Interpretation Normal sinus rhythm Nonspecific ST abnormality Abnormal ECG No previous ECGs available Confirmed by GUANAKO BURROUGHS ([id number]) on 05/01/2025 9:26:01 PM GEMUSE 05/01/2025 12:1 7 AM EST 05/01/2025 9:26 PM EST Addison Villaseñor MD ECG ORDERABLES Final Res ult GEMUSE * ECG-Annotated (05/01/2025) Provider Onbase ECG ORDERABLES Final Result from Last 3 Months Insurance MEDICARE [place]ICA[place] Member Subscriber Plan / Payer (Ef fective 2025-Present) Name:Yojana Reece Relation to Subscriber:Self Name:Yojana Reece Payer ID:[id number] Group ID:Not on file Type:Not on file Address: [facility] ATTN:CLAIM[employer] [address] [place] [address] Care Teams Air Twister Winder Relationship Specialty Start Date End Date Jaison Gamboa MD [address] [place] [address] [place] [id number] PCP - General Internal Medicine 07/13/21
== END 2025-05-22 10:30 | disposition home or self-care (01) ==
LOC: HO.XRAY 10:29
PROVIDERS: Visit Provider Student in an Organized Health Care Education/Training Program
DX: M25.561 Pain in right knee (principal); M25.562 Pain in left knee; M25.512 Pain in left shoulder; M25.541 Pain in joints of right hand; M25.542 Pain in joints of left hand; R76.0 Raised antibody titer
CPT/HCPCS: 73030; 73130; 73562; 81001; 82570; 84156

== ENCOUNTER → 2025-05-22 10:43 | Outpatient (BNV) | payer MEDICARE, MEDICAID, SELFPAY | PROVIDERS: Visit Provider Radiology Diagnostic Radiology | DX: M79.641 Pain in right hand (principal); M79.642 Pain in left hand | CPT/HCPCS: 73030; 73130; 73562 ==

== ENCOUNTER 2025-05-27 09:49 | Outpatient (AMB) | payer MEDICARE, MEDICAID, SELFPAY ==
--- NOTE | 2025-05-27 10:27 | A.OFFVIS_ITS ---
Vital Signs 05/27/25 10:32 Height 5 ft 4 in Weight 173 lb 15.115 oz BMI 29.9 BP 132/70 Blood Pressure Location Lt brachial Position Sitting Pulse 79 Pulse Source Pulse Oximeter Pulse Oximetry (%) 99 Oxygen Delivery Method Room Air Intake Visit Reasons: follow up Intake Note: Patient presents today for KRISTEN+ follow up and test results. [employer] Required: No Information Interpreted: non-clinical & clinical Accompanied by: Self / Same As Patient Allergies amitriptyline Allergy (Intermediate, Verified 05/27/25 10:31) lethargic pregabalin (From Lyrica) Adverse Reaction (Intermediate, Verified 05/27/25 10:31) Fatigued gabapentin Adverse Reaction (Intermediate, Uncoded 12/17/24 15:13) Nausea Medication List - Last Reconciled 05/27/25 by Anat Garcia MD albuterol sulfate 90 mcg/actuation 2 puffs inhalation Q4-6H PRN 30 days citalopram (Celexa) 20 mg PO DAILY hydroxyzine HCl 10 mg PO BID PRN lorazepam 1 mg (2 x 0.5 mg) PO BID PRN ondansetron 4 mg PO DAILY PRN 30 days HPI Comments Details: Patient is a 49-year-old female with asthma, depression, cervical osteoarthritis and fibromyalgia here today for follow up Interval History: Patient last seen 05/02/25 with me - Not on rheum meds - patient is concerned that she has an autoimmune disease because her repeat KRISTEN came back higher and the lab report noted that she may have scleroderma or Sjogren's - Denies rashes, photosensitivity, alopecia, oral/nasal ulcers, sicca symptoms, lymphadenopathy, chest pain/shortness of breath, foamy urine, lower extremity edema, muscle weakness, Raynaud's - Also denies history of seizure, CVA, psychosis, history of kidney problems, history of cytopenias, history of VTE including PE or DVTs - +1. No history of preeclampsia or placental insufficiency - states that she gets neck pain and radiates down to her left upper arm sometimes the pain we will need under her left breast which has her concern for cardiac origins given her significant family history of cardiac disease. - no known family history of autoimmune disease. Mom with osteoarthritis - no known history of thyroid disease - very tearful during the appointment because of whole-body pain sometimes not able to get out of bed. - Has tried gabapentin, lyrica, amitriptyline, flexeril with no effects Today - Not on rheum meds - Here for follow up of test results Rheumatologic History: Initial history by Dr. Wright: The patient presents for evaluation of multiple areas of pain. These have included the neck, left arm, right arm, right leg, and ankles. There is numbness around the left 4th 5th fingers in the left hand. Symptoms started in the right arm and neck back in 2014. This apparently eventually was treated with a corticosteroid injection the neck with some benefit. The left arm star bryant to bother her similarly in 2019. She did receive a spinal injection at [facility] that helped the left arm and neck pain back in 2019. She has also been seen at [facility]. She received a left lateral epicondyle and left carpal tunnel injection earlier this year. Those helped to some degree the elbow pains. She recently had nerve conduction studies done at [facility]. She takes occasional acetaminophen for her symptoms. In the past ibuprofen did seem to help her but caused epigastric pain. She has been out of work for number of months. Initially she went to part-time. She had trouble getting dressed because of the arm pain and has anxiety issues as well. She does take lorazepam once a day if needed. Current Rheumatology Medication(s): [facility] Medical History KRISTEN positive Fibromyalgia Cervical osteoarthritis Ulnar neuropathy at elbow of left upper extremity Pain in left arm Surgical History History of section Family History Mother Lung cancer Heart disease Social History Housing: Apartment Alcohol intake: never Patient Tobacco Use Status: Current everyday Tobacco user Tobacco use type: Cigarette Cigarette Packs Per Day: 0.5 Cigarettes Per Day: 8 e-Cigarette/Vaping Use: Never Used Second Hand Smoke Exposure: Yes service: No Current occupational status: unemployed Cognitive needs: No Hearing needs: No Vision needs: Yes (glasses) Review of Systems Narrative Review of Systems Constitutional: Denies fever, chills, weight loss ENT: Denies vision changes, eye pain or eye redness, dental caries, dry mouth GI: Denies nausea, vomiting, diarrhea, abdominal pain, change in BM Pulm: Denies SOB, HUERTA, hemoptysis, wheezing Cards: Denies chest pain, palpitations Skin: Denies Raynaud's, rash, nail changes, photosensitivity, DATA MANAGEMENT ASSOCIATE: Denies headaches, weakness, paresthesias, recurrent falls MSK: as per HPI All other systems reviewed and are unremarkable except noted above Physical Exam Exam Exam: Vital signs reviewed Physical Examination CONSTITUITIONAL Patient alert and cooperative. Well appearing and in no apparent painful distress Tearful MSK Hands * Right Hand: Able to make a fist. No swelling or tenderness to palpation of the MCPs, PIPs or DIPs. * Left Hand: Able to make a fist. No swelling. Scattered tenderness to several areas including the 5th MCP, 5th PIP, 3rd MCP and 2nd MCP. But also noting tenderness to palpation of the dorsum of the hand which when asked is more tender than the actual joint proper Wrists * Right Wrist: Full ROM to flexion and extension. No swelling or TTP * Left Wrist: Full ROM to flexion and extension. No swelling or TTP Elbows * Right Elbow: Full ROM. No swelling or TTP. No TTP of the medial epicondyle. No TTP of the lateral epicondyle * Left Elbow: Full ROM. No swelling or TTP. No TTP of the medial epicondyle. No TTP of the lateral epicondyle Shoulders * Right shoulder: No swelling noted. No TTP of the AC joint. No TTP of the subacromial bursa. No TTP of the posterior shoulder * Left shoulder: No swelling noted. No TTP of the AC joint. TTP of the subacromial bursa. No TTP of the posterior shoulder Hip bursa: TTP on the right Knees * Right knee: Full ROM. No swelling noted. No TTP of the knee joint line. No TTP of pes anserine bursa * Left knee: Full ROM. No swelling noted. TTP of the knee joint line. No TTP of pes anserine bursa. Ankles * Right ankle: Good ankle dorsiflexion and plantar flexion. No swelling. No TTP of the ankle joint * Left ankle: Good ankle dorsiflexion and plantar flexion. No swelling. No TTP of the ankle joint Feet * Right foot: Negative squeeze test * Left foot: Negative squeeze test Vital Signs: Last Vital Signs Pulse 79 05/27/25 10:32 BP 132/70 05/27/25 10:32 Pulse Ox 99 05/27/25 10:32 Oxygen Delivery Method Room Air 05/27/25 10:32 BMI result Body Mass Index 29.9 Results Reviewed Results Reviewed: Laboratory Tests 12/27/24 05/02/25 09:29 14:10 WBC 6.9 RBC 4.28 Hgb 13.8 Hct 40.8 Plt Count 272 ESR 15 Sodium 141 Potassium 3.9 Chloride 108 Carbon Dioxide 25 BUN 11 Creatinine 0.73 AST 23 ALT 25 C-Reactive Protein 0.31 25-OH Vitamin D Total 27.1 L Laboratory Tests 12/27/24 05/02/25 09:29 14:10 TSH 0.71 Rheumatoid Factor < 13.0 Cycl Citrul Peptide IgG <16 KRISTEN Screen POSITIVE A KRISTEN Titer 1:1280 H KRISTEN Pattern Nuclear, Nucleolar A SS-A/Ro Antibody <1.0 NEG SS-B/La Antibody <1.0 NEG Sm (Chew) Antibody <1.0 NEG SM/COMPLAINT ADJUSTER IgG Antibody <1.0 NEG Scl-70 Scleroderma Ab <1.0 NEG Double Strand DNA Ab 2 Anti-ds DNA (Crithidia) Negative Thyroglobulin Antibody <1 Thyroid Peroxidase Ab 31 H Complement C3 144 Complement C4 23 XR Bilateral Hands 05/2025 FINDINGS: Six views of the bilateral hands are submitted. Osseous mineralization is normal. There is no fracture or dislocation. The joint spaces are preserved. The soft tissues are unremarkable. IMPRESSION: Unremarkable examination of the bilateral hands. XR Bilateral Knees 05/2025 FINDINGS: No acute fracture or dislocation. Mild joint involving the medial compartment of the knees. No gross suprapatellar bursa joint effusion. No lytic or blastic lesions. No soft tissue calcifications. IMPRESSION: Medial compartment osteoarthrosis/osteoarthritis, mild, bilaterally. Overall no gross change. XR Bilateral Shoulders 05/2025 FINDINGS: Amorphous calcific densities are visible anterior to the anatomic neck of the humerus on the axillary view. Calcifications project over the greater tuberosity on the AP views. On the lateral view, the calcifications are present along the cephalad margin of the humeral head and greater tuberosity. There are no degenerative changes and no dislocation. IMPRESSION: Calcific tendinitis possibly involving anterior supraspinatus tendon or subscapularis. Assessment & Plan Assessment & Plan (1) Fibromyalgia: Code(s): M79.7 - Fibromyalgia Category: Medical Plan: #Fibromyalgia Patient is a 49-year-old female here today for follow up. Results do not show any evidence of autoimmune disease with normal Chew, dsDNA and normal complements Discussed trying LDN but patient deferred at this time Plan - RTC prn (2) KRISTEN positive: Comment: 10/2021:1:320, nucleolar pattern 1: 40 DFS Code(s): R76.8 - Other specified abnormal immunological findings in serum Category: Medical Plan: #Positive KRISTEN The presence of antinuclear antibodies (KRISTEN) is mainly associated with conn ective tissue diseases (CTD). However, their presence is found in healthy people especially in women and patients >65. In healthy individuals, the frequency of KRISTEN has been shown to be 31.7% of individuals at 1:40 serum dilution, 13.3% at 1:80, 5.0% at 1:160, and 3.3% at 1:320 (2). Some drugs and xenobiotics are also important for the development of KRISTEN (hydralazine, hydrochlorothiazide, minocycline, terbinafine, ciprofloxacin, furosemide, omeprazole). Moreover, the deficiency of vitamin D in the body of patients correlates with occurrence of these antibodies (1). At this time there is low suspicion for a connective tissue disease Her KRISTEN is likely being driven by her elevated TPO Her TSH is normal so no indication for any further treatment at this time 1. Lien Regalado, Naya Seth, Moni Song. Antinuclear antibodies in healthy people and non-rheumatic diseases - diagnostic and clinical implications. Reumatologia. 2018;56(4):243-248. doi: 10.5114/reum.2018.47980. Epub 2017Feb 16. PMID: 52921395; PMCID: [id number]. 2. Lang EM, Vishal TE, Antony JS, Harvey B, Stephanie R, Lorena MJ, Jonatan T, Suman JA, Kevin JR, René RG, Daniele RN, Ngozi JS, Selma NF, Kerline RJ, Claudia Y, Brianda A, Maykel MR, Wojciech CAR. Range of antinuclear antibodies in healthy individuals. Arthritis Rheum. 1997 Sep;40(9):1601-11. doi: 10.1002/art.[id number]. PMID: 8290841. (3) Calcific tendinitis of left shoulder: Code(s): M75.32 - Calcific tendinitis of left shoulder Plan: #Calcific tendonitis of the left shoulder Refer to ortho Plan I spent 20 minutes reviewing the record and labs, explaining the results to the patient, discussing the treatment plan based on the results, and documenting in the medical record Orders: Referrals Orthopedics Referral M75.32 - Calcific tendinitis of left shoulder Coding Level of Care Code Est Pt Level 3 (87440) Diagnoses Fibromyalgia M79.7 KRISTEN positive R76.8 Calcific tendinitis of left shoulder M75.32
[2025-05-27 10:32] VITALS: BP 132/70; PULSE 79; O2SAT 99; BMI 29.9
== END 2025-05-27 11:11 | disposition home or self-care (01) ==
LOC: HO.RHES 09:49
PROVIDERS: Visit Provider Student in an Organized Health Care Education/Training Program
DX: M79.7 Fibromyalgia (principal); R76.89 Other specified abnormal immunological findings in serum; M75.32 Calcific tendinitis of left shoulder
CPT/HCPCS: 99213

== ENCOUNTER → 2025-05-27 09:49 | Outpatient (BNVA) | payer MEDICARE, MEDICAID, SELFPAY | PROVIDERS: Visit Provider Student in an Organized Health Care Education/Training Program | DX: M79.7 Fibromyalgia (principal); R76.0 Raised antibody titer; R20.0 Anesthesia of skin; M75.32 Calcific tendinitis of left shoulder | CPT/HCPCS: 99212 ==